=== PATIENT | female | born 1945 | race African-American/Black ===

== ENCOUNTER 2018-12-29 11:06 | Inpatient (IN) | payer BC ==
[~2018-12-29] VITALS: Ht 162.6 cm; Wt 86.2 kg
[2018-12-29] MEDS ORDERED: UNOBMED (11:13)
--- NOTE | 2018-12-29 11:20 | NUR ---
ED Nurse Note: patient was brought in by GUNNAR RAMIREZ x 4, per patient she can not walk, complaining of pain in both knees. patient fell at home in attempt to walk. skin is dry and intact. family member at the bed side.
[2018-12-29 11:28] VITALS: BP 156/87
--- NOTE | 2018-12-29 11:44 | NUR ---
ED Nurse Note:patient went down for CT
[2018-12-29 12:13] LABS: BASOPHILS % (AUTO) 0.7 % (0.0-2.0); EOSINOPHILS % (AUTO) 0.5 % (0.0-3.0); HEMATOCRIT 46.7 % (37.0-47.0); HEMOGLOBIN 15.3 G/DL (12.0-16.0); LYMPHOCYTES % (AUTO) 16.7 % (20.0-45.0); MEAN CORPUSCULAR VOLUME 87 FL (80-99); MONOCYTES % (AUTO) 9.4 % (1.0-10.0); NEUTROPHILS % (AUTO) 72.7 % (45.0-75.0); PLATELET COUNT 213 K/UL (150-450); RED BLOOD COUNT 5.37 M/UL (4.20-5.40); RED CELL DISTRIBUTION WIDTH 15.4 % (11.6-14.8); WHITE BLOOD COUNT 10.4 K/UL (4.8-10.8)
[2018-12-29] MEDS ORDERED: Meclizine 25mg tab ORAL PRN (12:15)
--- NOTE | 2018-12-29 12:20 | Emergency Room Report ---
History of Present Illness General Chief Complaint: Multiple Trauma/Fall Source: Patient Present Illness HPI 73-year-old female with history of spinal stenosis, COPD, diabetes, hypertension , vertigo, polymyalgia rheumatica, presents with multiple falls over the past week probably 67, she reports she had mild knee pain, but does not feel like she hurt herself in any of her recent falls. Allergies: Coded Allergies: SHELLFISH DERIVED (Unverified Allergy, Unknown, 12/29/18) SULFA (SULFONAMIDE ANTIBIOTICS) (Verified Allergy, Unknown, 12/29/18) Uncoded Allergies: SHELLFISH (Allergy, Unknown, 12/29/18) Patient History Past Medical History: see triage record Reviewed Nursing Documentation: PMH: Agreed; PSxH: Agreed Nursing Documentation-PMH Hx Hypertension: Yes - CHOLESTEROL, CHRONIC BACK PAIN Hx Diabetes: Yes - TYPE 2 Review of Systems All Other Systems: negative except mentioned in HPI Physical Exam Vital Signs Date Time Temp Pulse Resp B/P (MAP) Pulse Ox O2 Delivery O2 Flow Rate FiO2 12/29/18 11:06 97.9 63 22 149/82 94 Room Air Sp02 EP Interpretation: reviewed, normal General Appearance: no apparent distress, alert, non-toxic Head: normocephalic Eyes: bilateral eye normal inspection, bilateral eye PERRL, bilateral eye EOMI ENT: normal ENT inspection, hearing grossly normal, normal pharynx, no angioedema, normal voice, moist mucus membranes Neck: normal inspection, full range of motion, supple, no bony tend, supple/ symm/no masses Respiratory: chest non-tender, lungs clear, normal breath sounds, chest symmetrical, palpation of chest normal Cardiovascular #1: normal peripheral pulses, regular rate, rhythm, edema - 1+ B /L LE edema Cardiovascular #2: 2+ radial (R), 2+ radial (L) Gastrointestinal: normal inspection, non tender, soft, no mass, no guarding, no rebound Rectal: deferred Genitourinary: normal inspection, no CVA tenderness Musculoskeletal: back normal, gait/station normal, normal range of motion, non- tender, no calf tenderness Neurologic: alert, responsive, banjo repairer III-XII nml as tested, motor strength/tone normal, sensory intact, speech normal Psychiatric: judgement/insight normal, memory normal, mood/affect normal Skin: normal color, no rash, warm/dry, normal turgor Lymphatic: no adenopathy Medical Decision Making Diagnostic Impression: Primary Impression: Fall ER Course Patient with multiple falls, has chronic vertigo and similar episodes every year requiring rehab with PT. Patient with no focal neuro deficits, no signs of major injury on exam or based on history, will admit for further care since patient can't walk without being a fall risk. EKG Diagnostic Results EKG Time: 11:50 EP Interpretation: no stemi Rate: normal Rhythm: NSR ST Segments: no acute changes Rhythm Strip Diag. Results Rhythm Strip Time: 12:20 EP Interpretation: yes Rate: 64 Rhythm: NSR, no PVC's, no ectopy Last Vital Signs Date Time Temp Pulse Resp B/P (MAP) Pulse Ox O2 Delivery O2 Flow Rate FiO2 12/29/18 11:28 97.4 74 18 156/87 100 Room Air Disposition: ADMITTED INPATIENT Condition: Stable JAN GARCIA M.D Dec 29, 2018 12:20
--- NOTE | 2018-12-29 12:25 | Diagnostic Imaging Report ---
Indications: Trauma, inability to walk, pain, fall Technique: Spiral acquisitions obtained through the brain. Angled axial and coronal 5 x 5 mm slices were reconstructed. Total dose length product 1326.82 mGycm. CTDI vol(s) 70.38 mGy. Dose reduction achieved using automated exposure control Comparison: None. Findings: There is age-related enlargement of the ventricles and extra axial CSF spaces. There is periventricular deep white matter low-attenuation, consistent with chronic small vessel ischemic change. Otherwise normal houser-white differentiation. Old lacunar infarcts are seen in the bilateral basal ganglia. No acute intracranial hemorrhage nor edema, mass effect, nor midline shift. The calvarium is intact. The mastoids are clear. The visualized orbits and sinuses are unremarkable. Impression: Chronic and age-related changes, as described Old infarcts, as described Negative for acute intracranial bleed or mass effect The CT scanner at [facility] is accredited by the [employer] and the scans are performed using protocols designed to limit radiation exposure to as low as reasonably achievable to attain images of sufficient resolution adequate for diagnostic evaluation.
[2018-12-29 12:39] LABS: APPEARANCE,URINE CLEAR; BILIRUBIN, URINE NEGATIVE (NEGATIVE); COLOR,URINE PALE YELLOW; GLUCOSE, URINE (UA) NEGATIVE (NEGATIVE); KETONES,URINE NEGATIVE (NEGATIVE); LEUKOCYTE ESTERASE ,URINE 1+ (NEGATIVE); NITRITE,URINE NEGATIVE (NEGATIVE); PH,URINE 6 (4.5-8.0); PROTEIN,URINE NEGATIVE (NEGATIVE); UROBILINOGEN,URINE NORMAL MG/DL (0.0-1.0)
[2018-12-29 12:47] LABS: ANION GAP 9 mmol/L (5-15); BLOOD UREA NITROGEN 31 mg/dL (7-18); CALCIUM 10.3 MG/DL (8.5-10.1); CARBON DIOXIDE 32 MMOL/L (21-32); CHLORIDE 96 MMOL/L (98-107); CREATININE 1.1 MG/DL (0.55-1.30); POTASSIUM 3.5 MMOL/L (3.5-5.1); SODIUM 137 MMOL/L (136-145)
[2018-12-29 12:57] LABS: ALANINE AMINOTRANSFERASE 40 U/L (12-78); ALBUMIN 3.6 G/DL (3.4-5.0); ALKALINE PHOSPHATASE 98 U/L (46-116); ASPARTATE AMINO TRANSFERASE 15 U/L (15-37); BILIRUBIN,TOTAL 0.5 MG/DL (0.2-1.0); CREATINE KINASE 54 U/L (26-308)
--- NOTE | 2018-12-29 13:33 | Diagnostic Imaging Report ---
Indication: Cough Technique: One view of the chest Comparison: none Findings: The heart is borderline enlarged. The lungs and pleural spaces are clear. Impression: Borderline cardiomegaly. No acute process
[2018-12-29] MEDS ORDERED: LORazepam Inj 2mg/ml 1ml IV PRN (18:15)
[2018-12-29] MEDS ORDERED: Zolpidem 5mg tab ORAL PRN (18:15)
[2018-12-29] MEDS ORDERED: Mylanta II UD 30ml ORAL PRN (18:15)
[2018-12-29] MEDS ORDERED: Miralax 17gm pkt ORAL PRN (18:15)
[2018-12-29] MEDS ORDERED: TRIAMTERENE-HC1 EAC5 ORAL (18:24)
[2018-12-29] MEDS ORDERED: LOSARTAN POTAS100 MG ORAL (18:24)
[2018-12-29] MEDS ORDERED: Dextrose 50% 25ml Syringe IV PRN (18:30)
[2018-12-29] MEDS ORDERED: METFORMIN HCL500 M1 ORAL (18:31)
[2018-12-29] MEDS ORDERED: STARLIX60 MG ORAL (18:31)
[2018-12-29] MEDS ORDERED: CYMBALTA60 MG ORAL (18:31)
[2018-12-29] MEDS ORDERED: VENTOLIN HFA18 GM INH (18:31)
[2018-12-29] MEDS ORDERED: CARDIZEM CD180 MG ORAL (18:31)
[2018-12-29] MEDS ORDERED: BEVESPI AEROSPHERE INH (18:31)
[2018-12-29] MEDS ORDERED: PREDNISONE5 M3 PO (18:31)
[2018-12-29] MEDS ORDERED: ATORVASTATIN CA40 MG ORAL (18:35)
[2018-12-29] MEDS ORDERED: MULTIVITAMINS1 EAC2 ORAL (18:35)
[2018-12-29] MEDS ORDERED: RANITIDINE HCL150 MG ORAL (18:35)
[2018-12-29] MEDS ORDERED: GABAPENTIN100 MG ORAL (18:35)
[2018-12-29] MEDS ORDERED: ASPIRIN81 MG ORAL (18:35)
[2018-12-29 18:55] VITALS: BP 153/65
--- NOTE | 2018-12-29 19:30 | NUR ---
ED Nurse Note: RECIEVED REPORT FROM AM NRUSE TO RESUME CARE, PT IN BED AWAKE, ALERT AND ORIENTED X 4, PT WAITING TO GO UP FOR HOSPITAL ADMISSION, PT HAS ROOM, NOTED SALINE LOCK IN RIGHT AC, INTACT AND PATENT, PT ON CARDIAC MONITORIG, V/S STABLE, PT HAS BACK AND BILAT KNEE PAINA T 03/24, NO CP, NO SOB, WILL RESUME CARE ORDRED AND PREPARE FOR ADMISSION.
--- NOTE | 2018-12-29 20:00 | NUR ---
ED Nurse Note: REPORT CALLED TO FLOOR NURSE EDSON MANN ON UNIT, PT IS AWAKE AND ALERT, BELONGINGS LIST COMPLETED, PT DAUGHTER AT BEDSIDE, IV SITE PATENT, NO CP, NO SOB, PT BEING TAKEN TO UNIT VIA GURNEY WITH ER-TECH, NAD NOTED DURING PT TRANSPORT FOR ADMISSION.
--- NOTE | 2018-12-29 20:45 | NUR ---
NURSE NOTES: Patient is awake, alert and verbally responsive. Able to make needs known. Respiration is even and unlabored. Kept clean and comfortable. No complaint of pain or discomfort at the moment. Bed in low and locked position. Provided safe environment. Call light is at bedside. Oriented patient to the room and hospital. Skin is warm and dry to touch. IV site is patent. All belongings noted. Medication recon will be rechecked. Will call primary MD to continue home medications.
[2018-12-29 23:53] VITALS: BP 137/76
[2018-12-30 04:00] VITALS: BP 145/57
[2018-12-30] MEDS: Morphine Sulfate 2mg/ml Inj(IV/IM USE ONLY) IVP PRN ×2 (04:38→15:48)
--- NOTE | 2018-12-30 04:45 | NUR ---
NURSE NOTES: Patient complained of lower leg pain, given PRN pain medication as ordered.
--- NOTE | 2018-12-30 07:09 | NUR ---
HAND-OFF: Report given to EDSON Chou.
--- NOTE | 2018-12-30 07:15 | NUR ---
NURSE NOTES: Pt received from EDSON Hinkle alert and oriented x4 with no s/s of acute distress. IV site asymptomatic and patent, on saline lock. Bed in lowest position, call light and belongings within reach.
[2018-12-30 08:00] VITALS: BP 158/65
[2018-12-30 08:07] LABS: ALANINE AMINOTRANSFERASE 33 U/L (12-78); ALKALINE PHOSPHATASE 90 U/L (46-116); ANION GAP 6 mmol/L (5-15); ASPARTATE AMINO TRANSFERASE 15 U/L (15-37); BILIRUBIN,TOTAL 0.4 MG/DL (0.2-1.0); BLOOD UREA NITROGEN 28 mg/dL (7-18); CALCIUM 8.8 MG/DL (8.5-10.1); CARBON DIOXIDE 32 MMOL/L (21-32); CHLORIDE 98 MMOL/L (98-107); CHOLESTEROL 158 MG/DL (< 200); CREATININE 1.2 MG/DL (0.55-1.30); HDL CHOLESTEROL 115 MG/DL (40-60); SODIUM 136 MMOL/L (136-145); TRIGLYCERIDES 43 MG/DL (30-150)
[2018-12-30 08:18] LABS: BASOPHILS % (AUTO) 0.3 % (0.0-2.0); EOSINOPHILS % (AUTO) 0.9 % (0.0-3.0); HEMATOCRIT 40.7 % (37.0-47.0); HEMOGLOBIN 13.4 G/DL (12.0-16.0); LYMPHOCYTES % (AUTO) 22.1 % (20.0-45.0); MEAN CORPUSCULAR VOLUME 87 FL (80-99); MONOCYTES % (AUTO) 9.3 % (1.0-10.0); NEUTROPHILS % (AUTO) 67.4 % (45.0-75.0); PLATELET COUNT 156 K/UL (150-450); RED BLOOD COUNT 4.68 M/UL (4.20-5.40); WHITE BLOOD COUNT 7.5 K/UL (4.8-10.8)
[2018-12-30] MEDS: Losartan 50mg tab ORAL SCH (08:43)
[2018-12-30] MEDS: dilTIAZem HCl CD 180mg cap ORAL SCH (08:43)
[2018-12-30] MEDS: Aspirin Baby 81mg ORAL SCH (08:43)
[2018-12-30] MEDS: Triamterene/Hctz 37.5/25 cap ORAL SCH (08:43)
[2018-12-30] MEDS: metFORMIN 500mg tab ORAL SCH ×3 (08:43→17:13)
[2018-12-30] MEDS: Nateglinide 60mg tab ORAL SCH ×3 (08:44→17:13)
[2018-12-30] MEDS: DULoxetine 30mg cap ORAL SCH (08:44)
[2018-12-30 12:00] VITALS: BP 153/78
--- NOTE | 2018-12-30 13:19 | Consultation ---
History of Present Illness General Date patient seen: Dec 30, 2018 Chief Complaint: Multiple Trauma/Fall Present Illness HPI 73-year-old female with history of spinal stenosis, COPD, diabetes, hypertension , vertigo, polymyalgia rheumatica, presents with multiple falls over the past week , she reports she had mild knee. She is admitted for recurrent fall and unable to take care of herself. Allergies: Coded Allergies: SHELLFISH DERIVED (Unverified Allergy, Unknown, 12/29/18) SULFA (SULFONAMIDE ANTIBIOTICS) (Verified Allergy, Unknown, 12/29/18) Uncoded Allergies: SHELLFISH (Allergy, Unknown, 12/29/18) Medication History Scheduled Albuterol Sulfate (Ventolin Hfa), 2 PUFFS INH NEEDED, (Reported) Aspirin* (Aspirin*), 81 MG ORAL QHS, (Reported) Atorvastatin Calcium* (Atorvastatin Calcium*), 40 MG ORAL BEDTIME, (Reported) Diltiazem Hcl* (Cardizem Cd*), 180 MG ORAL DAILY, (Reported) Duloxetine Hcl* (Cymbalta*), 60 MG ORAL DAILY, (Reported) Gabapentin* (Gabapentin*), 100 MG ORAL BID, (Reported) Losartan Potassium (Losartan Potassium), 100 MG ORAL DAILY, (Reported) Metformin Hcl* (Metformin Hcl*), 500 MG ORAL THREE TIMES A DAY, (Reported) Multivitamins* (Multivitamins*), 1 TAB ORAL DAILY, (Reported) Nateglinide* (Starlix*), 60 MG ORAL THREE TIMES A DAY, (Reported) Prednisone (Prednisone), 5 MG PO DAILY, (Reported) Ranitidine Hcl* (Zantac*), 150 MG ORAL TWICE A DAY, (Reported) Triamterene/Hydrochlorothiazide* (Dyazide 37.5-25 Mg Tab*), 1 TAB ORAL DAILY, ( Reported) [Bevespi Aerosphere], 2 PUFFS INH DAILY, (Reported) Patient History Healthcare decision maker Resuscitation status Advanced Directive on File Past Medical/Surgical History Past Medical/Surgical History: (1) Diabetes mellitus (2) History of hypertension (3) COPD (chronic obstructive pulmonary disease) (4) Polymyalgia rheumatica (5) Spinal stenosis Review of Systems All Other Systems: negative except mentioned in HPI Physical Exam General Appearance: WD/WN Lines, tubes and drains: peripheral HEENT: normocephalic, atraumatic Neck: non-tender Respiratory/Chest: chest wall non-tender, normal breath sounds Breasts: no masses Cardiovascular/Chest: normal peripheral pulses Genitourinary/Rectal: normal genital exam Extremities: normal range of motion Last 24 Hour Vital Signs Date Time Temp Pulse Resp B/P (MAP) Pulse Ox O2 Delivery O2 Flow Rate FiO2 12/30/18 12:00 98.6 78 20 153/78 (103) 98 12/30/18 09:00 Room Air 12/30/18 08:43 168/65 12/30/18 08:43 85 168/65 12/30/18 08:00 98.4 85 20 158/65 (96) 96 12/30/18 04:00 96.9 69 20 145/57 (86) 96 12/29/18 23:53 97.6 80 20 137/76 (96) 100 12/29/18 23:12 Room Air 12/29/18 20:05 97.4 88 19 153/65 100 Room Air 12/29/18 18:55 97.4 88 19 153/65 100 Room Air Intake and Output 12/29/18 12/30/18 18:59 06:59 Intake Total 900 ml Balance 900 ml Intake Oral 900 ml # Voids 1 Laboratory Tests Test 12/30/18 04:52 White Blood Count 7.5 K/UL (4.8-10.8) Red Blood Count 4.68 M/UL (4.20-5.40) Hemoglobin 13.4 G/DL (12.0-16.0) Hematocrit 40.7 % (37.0-47.0) Mean Corpuscular Volume 87 FL (80-99) Mean Corpuscular Hemoglobin 28.7 PG (27.0-31.0) Mean Corpuscular Hemoglobin Concent 33.0 G/DL (32.0-36.0) Red Cell Distribution Width 15.0 % (11.6-14.8) H Platelet Count 156 K/UL (150-450) Mean Platelet Volume 8.1 FL (6.5-10.1) Neutrophils (%) (Auto) 67.4 % (45.0-75.0) Lymphocytes (%) (Auto) 22.1 % (20.0-45.0) Monocytes (%) (Auto) 9.3 % (1.0-10.0) Eosinophils (%) (Auto) 0.9 % (0.0-3.0) Basophils (%) (Auto) 0.3 % (0.0-2.0) Sodium Level 136 MMOL/L (136-145) Potassium Level 4.0 MMOL/L (3.5-5.1) Chloride Level 98 MMOL/L (98-107) Carbon Dioxide Level 32 MMOL/L (21-32) Anion Gap 6 mmol/L (5-15) Blood Urea Nitrogen 28 mg/dL (7-18) H Creatinine 1.2 MG/DL (0.55-1.30) Estimat Glomerular Filtration Rate mL/min (>60) Glucose Level 134 MG/DL (74-106) H Calcium Level 8.8 MG/DL (8.5-10.1) Total Bilirubin 0.4 MG/DL (0.2-1.0) Aspartate Amino Transf (AST/SGOT) 15 U/L (15-37) Alanine Aminotransferase (ALT/SGPT) 33 U/L (12-78) Alkaline Phosphatase 90 U/L (46-116) Total Protein 6.0 G/DL (6.4-8.2) L Albumin 3.0 G/DL (3.4-5.0) L Globulin 3.0 g/dL Albumin/Globulin Ratio 1.0 (1.0-2.7) Triglycerides Level 43 MG/DL (30-150) Cholesterol Level 158 MG/DL (< 200) LDL Cholesterol 33 mg/dL (<100) HDL Cholesterol 115 MG/DL (40-60) H Cholesterol/HDL Ratio 1.4 (3.3-4.4) L Thyroid Stimulating Hormone (TSH) 0.829 uiU/mL (0.358-3.740) Height (Feet): 5 Height (Inches): 4.00 Weight (Pounds): 190 Medications Current Medications Medications (Trade) Dose Ordered Sig/Stefanie Route PRN Reason Start Time Stop Time Status Last Admin Dose Admin Acetaminophen (Tylenol) 650 mg Q4H PRN ORAL fever 12/29/18 18:15 01/28/19 18:14 Al Hydroxide/Mg Hydroxide (Mylanta II) 30 ml Q6H PRN ORAL dyspepsia 12/29/18 18:15 01/28/19 18:14 Aspirin (ASA) 81 mg DAILY ORAL 12/30/18 09:00 01/29/19 08:59 12/30/18 08:43 Atorvastatin Calcium (Lipitor) 40 mg BEDTIME ORAL 12/30/18 21:00 01/29/19 20:59 Dextrose (Dextrose 50%) 25 ml Q30M PRN IV Hypoglycemia 12/29/18 18:30 01/28/19 18:18 Dextrose (Dextrose 50%) 50 ml Q30M PRN IV hypoglycemia 12/29/18 18:30 01/28/19 18:29 Diltiazem HCl (Cardizem CD) 180 mg DAILY ORAL 12/30/18 09:00 01/29/19 08:59 12/30/18 08:43 Duloxetine HCl (Cymbalta) 60 mg DAILY ORAL 12/30/18 09:00 01/29/19 08:59 12/30/18 08:44 Famotidine (Pepcid) 20 mg BID ORAL 12/30/18 09:00 01/29/19 08:59 12/30/18 08:43 Gabapentin (Neurontin) 100 mg BID ORAL 12/30/18 09:00 01/29/19 08:59 12/30/18 08:44 Lorazepam (Ativan 2mg/ml 1ml) 0.5 mg Q4H PRN IV For Anxiety 12/29/18 18:15 01/05/19 18:14 Losartan Potassium (Cozaar) 100 mg DAILY ORAL 12/30/18 09:00 01/29/19 08:59 12/30/18 08:43 Meclizine HCl (Antivert) 25 mg STAT PRN ORAL for dizziness 12/29/18 12:15 01/28/19 12:14 Metformin HCl (Glucophage) 500 mg THREE TIMES A DAY ORAL 12/30/18 09:00 01/29/19 08:59 12/30/18 08:43 Mirtazapine (Remeron) 7.5 mg QHS PRN ORAL Insomnia 12/30/18 21:00 01/29/19 20:59 Morphine Sulfate (Morphine Sulfate) 1 mg Q4H PRN IVP For Pain 12/29/18 18:15 01/05/19 18:14 12/30/18 04:38 Multivitamins (Multivitamins) 1 tab DAILY ORAL 12/30/18 09:00 01/29/19 08:59 12/30/18 08:43 Nateglinide (Starlix) 60 mg THREE TIMES A DAY ORAL 12/30/18 09:00 01/29/19 08:59 12/30/18 08:44 Ondansetron HCl (Zofran) 4 mg Q6H PRN IVP Nausea & Vomiting 12/29/18 18:15 01/28/19 18:14 Polyethylene Glycol (Miralax) 17 gm HSPRN PRN ORAL Constipation 12/29/18 18:15 01/28/19 18:14 Prednisone (predniSONE) 5 mg DAILY ORAL 12/30/18 09:00 01/29/19 08:59 12/30/18 08:44 Triamterene/HCTZ (Dyazide) 1 cap DAILY ORAL 12/30/18 09:00 01/29/19 08:59 12/30/18 08:43 Assessment/Plan Problem List: (1) COPD (chronic obstructive pulmonary disease) ICD Codes: J44.9 - Chronic obstructive pulmonary disease, unspecified SNOMED: 26913006 (2) Fall ICD Codes: W19.XXXA - Unspecified fall, initial encounter SNOMED: 8113345, 105034400 (3) Polymyalgia rheumatica ICD Codes: M35.3 - Polymyalgia rheumatica SNOMED: 96713097 (4) Spinal stenosis ICD Codes: M48.00 - Spinal stenosis, site unspecified SNOMED: 57193064 (5) History of hypertension ICD Codes: Z86.79 - Personal history of other diseases of the circulatory system SNOMED: 067202131 (6) Diabetes mellitus ICD Codes: E11.9 - Type 2 diabetes mellitus without complications SNOMED: 95318532 Assessment/Plan pt/ot social service consult neuro evaluation sliding scale diabetic diet pt might need placement. Demetria Veloz MD Dec 30, 2018 13:19
--- NOTE | 2018-12-30 14:03 | History & Physical ---
History and Physical History & Physicial Dictated for Int Med-Dr Morales no. [id number]. Koby Veloz MD Dec 30, 2018 14:03
[2018-12-30] MEDS ORDERED: Gadavist 7.5mMol/7.5ml vial IV PRN (14:15)
--- NOTE | 2018-12-30 15:15 | Cardiology Report ---
APPROVED REPORT EKG Measurement Heart [id number] [place] 206P40 [id number] [id number] Normal sinus rhythm Left axis deviation Left ventricular hypertrophy with repolarization abnormality Abnormal ECG
--- NOTE | 2018-12-30 16:01 | NUR ---
*-* INSURANCE *-* CLINICALS HAVE BEEN FAXED TO: [employer] F:[phone] INFORMATION IN THE BAR
--- NOTE | 2018-12-30 16:52 | Diagnostic Imaging Report ---
Indication: Knee pain Technique: 2 views of the right knee Comparison: None Findings: No acute fractures. No dislocations. Normal bony alignment. Joint spaces are preserved Impression: Negative
--- NOTE | 2018-12-30 17:01 | Diagnostic Imaging Report ---
Indication: Left knee pain Technique: 2 views of the left knee Comparison: None Findings: No acute fractures. No dislocations. No suprapatellar effusion. There are mild degenerative proliferative changes of the bilateral compartments. Impression: No acute process Minimal early degenerative changes
--- NOTE | 2018-12-30 19:50 | NUR ---
HAND-OFF: Report given to Manan Olivo RN.
[2018-12-30 20:00] VITALS: BP 151/74
--- NOTE | 2018-12-30 20:45 | History and Physical Report ---
DATE OF ADMISSION: 12/29/2018 CHIEF COMPLAINT: The patient is a 73-year-old female, presents with chief complaint of weakness of the bilateral legs and frequent falls. HISTORY OF PRESENT ILLNESS: The patient has a history of lumbar spine stenosis. The patient is status post surgery x3 on the lumbar spine. The patient states approximately 2 weeks ago ago, she began to experience weakness in bilateral lower extremities. The patient states her legs "gave out." The patient states she has fallen several times over the last two weeks. The patient states she has fallen approximately 70 times. The patient injured her bilateral knees. The patient complains of bilateral knee pain. The patient presents today with chief complaint of frequent falls and weakness in bilateral lower extremities. REVIEW OF SYSTEMS: CONSTITUTIONAL: The patient denies weight loss or gain. The patient denies fevers or chills. HEENT: The patient denies ear or throat pain. The patient denies headache. CARDIOVASCULAR: The patient denies palpitations or chest pain. CHEST: The patient denies wheeze or shortness of breath. ABDOMINAL: The patient denies nausea, vomiting, diarrhea, or constipation. GENITOURINARY: The patient denies dysuria or increased frequency of urination. NEUROMUSCULAR: The patient complains of bilateral weakness of the lower extremities as above. The patient denies seizures. PAST MEDICAL HISTORY: Significant for: 1. Diabetes type 2. 2. Hypertension. 3. Chronic obstructive pulmonary disease. 4. Polymyalgia rheumatica. 5. Fibromyalgia. 6. Herniated nucleus pulposus of the lumbar spine. PAST SURGICAL HISTORY: Significant for: 1. Cholecystectomy. 2. Lumbar surgery x3. 3. Cervical spine surgery x1. CURRENT MEDICATIONS: 1. Albuterol metered-dose inhaler two puffs p.o. 4 times a day. 2. Aspirin 81 mg p.o. at bedtime. 3. Atorvastatin 40 mg p.o. at bedtime. 4. Cardizem 180 mg p.o. daily. 5. Cymbalta 60 mg p.o. daily. 6. Gabapentin 100 mg p.o. twice daily. 7. Losartan 100 mg p.o. daily. 8. Metformin 500 mg p.o. 3 times daily. 9. Multivitamin 1 tablet p.o. daily. 10. Starlix 60 mg p.o. 3 times daily. 11. Prednisone 5 mg p.o. daily. 12. Zantac 150 mg p.o. twice daily. 13. Dyazide 37.5/25, 1 tablet p.o. daily. 14. Bevespi Aerosphere 2 puffs daily. ALLERGIES: To sulfa drugs. SOCIAL HISTORY: The patient is a and lives with her adult daughter and grandchildren. The patient denies tobacco use having quit in 1998. The patient admits to rare alcohol use. PHYSICAL EXAMINATION: VITAL SIGNS: Temperature 97.6, respirations 20, pulse 80, blood pressure 137/76. GENERAL: The patient is a well-developed and well-nourished slightly obese female, in no apparent distress. HEENT: Eyes, pupils equal and responsive to light and accommodation. Extraocular movements are intact. NECK: Supple without lymphadenopathy. CHEST: Lungs are clear to auscultation bilaterally without wheezes or rales. CARDIOVASCULAR: Regular rhythm and rate. S1-S2 are normal without murmurs, rubs, or gallops. ABDOMEN: Soft, nontender, and nondistended. Positive bowel sounds. No evidence of hepatosplenomegaly. No rebound or guarding noted. EXTREMITIES: Negative for clubbing, cyanosis, or edema. RECTAL/GENITAL: Refused. NEUROLOGIC: Cranial nerves II through XII are grossly intact without focal deficits. Motor strength is 5/5 in the bilateral lower extremities and 5/5 in the bilateral upper extremities. Deep tendon reflexes are 2+ plantar. LABORATORY AND DIAGNOSTIC STUDIES: WBC 10.4, hemoglobin 15.2, hematocrit 46.7, platelets 213,000. Sodium 137, potassium 3.5, chloride 96, CO2 32, BUN 31, creatinine 1.1. Glucose 74. Troponin 0.007. A CT scan of the brain was reported as no acute hemorrhage or infarct. A chest x-ray was reported as no acute disease. ASSESSMENT: This is a 73-year-old female. 1. Weakness in bilateral lower extremities. 2. Bilateral knee pain. 3. Frequent falls. 4. Herniated nucleus pulposus of the lumbar spine. 5. Hypertension. 6. Chronic obstructive pulmonary disease. 7. Polymyalgia rheumatica. 8. Fibromyalgia. TREATMENT: 1. Weakness of bilateral lower extremities/herniated nucleus pulposus of the lumbar spine. An MRI of the spine is pending. Herniated disc may be the cause of weakness in bilateral lower extremities. We will await results of the MRI. 2. Bilateral knee pain. The patient has a history of frequent falls. X-rays of bilateral knees is pending. 3. Diabetes type 2. A NovoLog sliding scale has been instituted. 4. Hypertension. Continue losartan as above. 5. Chronic obstructive pulmonary disease. Continue albuterol metered-dose inhaler as above. 6. Polymyalgia rheumatica. 7. Fibromyalgia. Koby Veloz M.D. DR: ATIF JOB#: [id number] CC:
[2018-12-30] MEDS: Atorvastatin 20mg tab ORAL SCH (20:47)
--- NOTE | 2018-12-30 20:52 | Consultation ---
History of Present Illness General Chief Complaint: Multiple Trauma/Fall Present Illness Allergies: Coded Allergies: SHELLFISH DERIVED (Unverified Allergy, Unknown, 12/29/18) SULFA (SULFONAMIDE ANTIBIOTICS) (Verified Allergy, Unknown, 12/29/18) Uncoded Allergies: SHELLFISH (Allergy, Unknown, 12/29/18) Medication History Scheduled Albuterol Sulfate (Ventolin Hfa), 2 PUFFS INH NEEDED, (Reported) Aspirin* (Aspirin*), 81 MG ORAL QHS, (Reported) Atorvastatin Calcium* (Atorvastatin Calcium*), 40 MG ORAL BEDTIME, (Reported) Diltiazem Hcl* (Cardizem Cd*), 180 MG ORAL DAILY, (Reported) Duloxetine Hcl* (Cymbalta*), 60 MG ORAL DAILY, (Reported) Gabapentin* (Gabapentin*), 100 MG ORAL BID, (Reported) Losartan Potassium (Losartan Potassium), 100 MG ORAL DAILY, (Reported) Metformin Hcl* (Metformin Hcl*), 500 MG ORAL THREE TIMES A DAY, (Reported) Multivitamins* (Multivitamins*), 1 TAB ORAL DAILY, (Reported) Nateglinide* (Starlix*), 60 MG ORAL THREE TIMES A DAY, (Reported) Prednisone (Prednisone), 5 MG PO DAILY, (Reported) Ranitidine Hcl* (Zantac*), 150 MG ORAL TWICE A DAY, (Reported) Triamterene/Hydrochlorothiazide* (Dyazide 37.5-25 Mg Tab*), 1 TAB ORAL DAILY, ( Reported) [Bevespi Aerosphere], 2 PUFFS INH DAILY, (Reported) Patient History Healthcare decision maker Resuscitation status Advanced Directive on File Physical Exam Last 24 Hour Vital Signs Date Time Temp Pulse Resp B/P (MAP) Pulse Ox O2 Delivery O2 Flow Rate FiO2 12/30/18 12:00 98.6 78 20 153/78 (103) 98 12/30/18 09:00 Room Air 12/30/18 08:43 168/65 12/30/18 08:43 85 168/65 12/30/18 08:00 98.4 85 20 158/65 (96) 96 12/30/18 04:00 96.9 69 20 145/57 (86) 96 12/29/18 23:53 97.6 80 20 137/76 (96) 100 12/29/18 23:12 Room Air Intake and Output 12/29/18 12/30/18 19:00 07:00 Intake Total 900 ml Balance 900 ml Intake Oral 900 ml # Voids 1 Laboratory Tests Test 12/30/18 04:52 White Blood Count 7.5 K/UL (4.8-10.8) Red Blood Count 4.68 M/UL (4.20-5.40) Hemoglobin 13.4 G/DL (12.0-16.0) Hematocrit 40.7 % (37.0-47.0) Mean Corpuscular Volume 87 FL (80-99) Mean Corpuscular Hemoglobin 28.7 PG (27.0-31.0) Mean Corpuscular Hemoglobin Concent 33.0 G/DL (32.0-36.0) Red Cell Distribution Width 15.0 % (11.6-14.8) H Platelet Count 156 K/UL (150-450) Mean Platelet Volume 8.1 FL (6.5-10.1) Neutrophils (%) (Auto) 67.4 % (45.0-75.0) Lymphocytes (%) (Auto) 22.1 % (20.0-45.0) Monocytes (%) (Auto) 9.3 % (1.0-10.0) Eosinophils (%) (Auto) 0.9 % (0.0-3.0) Basophils (%) (Auto) 0.3 % (0.0-2.0) Sodium Level 136 MMOL/L (136-145) Potassium Level 4.0 MMOL/L (3.5-5.1) Chloride Level 98 MMOL/L (98-107) Carbon Dioxide Level 32 MMOL/L (21-32) Anion Gap 6 mmol/L (5-15) Blood Urea Nitrogen 28 mg/dL (7-18) H Creatinine 1.2 MG/DL (0.55-1.30) Estimat Glomerular Filtration Rate mL/min (>60) Glucose Level 134 MG/DL (74-106) H Calcium Level 8.8 MG/DL (8.5-10.1) Total Bilirubin 0.4 MG/DL (0.2-1.0) Aspartate Amino Transf (AST/SGOT) 15 U/L (15-37) Alanine Aminotransferase (ALT/SGPT) 33 U/L (12-78) Alkaline Phosphatase 90 U/L (46-116) Total Protein 6.0 G/DL (6.4-8.2) L Albumin 3.0 G/DL (3.4-5.0) L Globulin 3.0 g/dL Albumin/Globulin Ratio 1.0 (1.0-2.7) Triglycerides Level 43 MG/DL (30-150) Cholesterol Level 158 MG/DL (< 200) LDL Cholesterol 33 mg/dL (<100) HDL Cholesterol 115 MG/DL (40-60) H Cholesterol/HDL Ratio 1.4 (3.3-4.4) L Thyroid Stimulating Hormone (TSH) 0.829 uiU/mL (0.358-3.740) Height (Feet): 5 Height (Inches): 4.00 Weight (Pounds): 190 Medications Current Medications Medications (Trade) Dose Ordered Sig/Stefanie Route PRN Reason Start Time Stop Time Status Last Admin Dose Admin Acetaminophen (Tylenol) 650 mg Q4H PRN ORAL fever 12/29/18 18:15 01/28/19 18:14 Al Hydroxide/Mg Hydroxide (Mylanta II) 30 ml Q6H PRN ORAL dyspepsia 12/29/18 18:15 01/28/19 18:14 Aspirin (ASA) 81 mg DAILY ORAL 12/30/18 09:00 01/29/19 08:59 12/30/18 08:43 Atorvastatin Calcium (Lipitor) 40 mg BEDTIME ORAL 12/30/18 21:00 01/29/19 20:59 12/30/18 20:47 Dextrose (Dextrose 50%) 25 ml Q30M PRN IV Hypoglycemia 12/29/18 18:30 01/28/19 18:18 Dextrose (Dextrose 50%) 50 ml Q30M PRN IV hypoglycemia 12/29/18 18:30 01/28/19 18:29 Diltiazem HCl (Cardizem CD) 180 mg DAILY ORAL 12/30/18 09:00 01/29/19 08:59 12/30/18 08:43 Duloxetine HCl (Cymbalta) 60 mg DAILY ORAL 12/30/18 09:00 01/29/19 08:59 12/30/18 08:44 Famotidine (Pepcid) 20 mg BID ORAL 12/30/18 09:00 01/29/19 08:59 12/30/18 17:13 Gabapentin (Neurontin) 100 mg BID ORAL 12/30/18 09:00 01/29/19 08:59 12/30/18 17:13 Gadobutrol (Gadavist) 7.5 mmol NOW PRN IV Radiology Procedure 12/30/18 14:15 01/03/19 14:04 Lorazepam (Ativan 2mg/ml 1ml) 0.5 mg Q4H PRN IV For Anxiety 12/29/18 18:15 01/05/19 18:14 Losartan Potassium (Cozaar) 100 mg DAILY ORAL 12/30/18 09:00 01/29/19 08:59 12/30/18 08:43 Meclizine HCl (Antivert) 25 mg STAT PRN ORAL for dizziness 12/29/18 12:15 01/28/19 12:14 Metformin HCl (Glucophage) 500 mg THREE TIMES A DAY ORAL 12/30/18 09:00 01/29/19 08:59 12/30/18 17:13 Mirtazapine (Remeron) 7.5 mg QHS PRN ORAL Insomnia 12/30/18 21:00 01/29/19 20:59 Morphine Sulfate (Morphine Sulfate) 1 mg Q4H PRN IVP For Pain 12/29/18 18:15 01/05/19 18:14 12/30/18 15:48 Multivitamins (Multivitamins) 1 tab DAILY ORAL 12/30/18 09:00 01/29/19 08:59 12/30/18 08:43 Nateglinide (Starlix) 60 mg THREE TIMES A DAY ORAL 12/30/18 09:00 01/29/19 08:59 12/30/18 17:13 Ondansetron HCl (Zofran) 4 mg Q6H PRN IVP Nausea & Vomiting 12/29/18 18:15 01/28/19 18:14 Polyethylene Glycol (Miralax) 17 gm HSPRN PRN ORAL Constipation 12/29/18 18:15 01/28/19 18:14 Prednisone (predniSONE) 5 mg DAILY ORAL 12/30/18 09:00 01/29/19 08:59 12/30/18 08:44 Triamterene/HCTZ (Dyazide) 1 cap DAILY ORAL 12/30/18 09:00 01/29/19 08:59 12/30/18 08:43 Assessment/Plan Problem List: (1) Anxiety disorder ICD Codes: F41.9 - Anxiety disorder, unspecified SNOMED: 300090087 (2) MDD (major depressive disorder), recurrent episode, moderate ICD Codes: F33.1 - Major depressive disorder, recurrent, moderate SNOMED: 05972166, [id number] Status: stable Devan Whitley MD Dec 30, 2018 20:52
--- NOTE | 2018-12-30 21:00 | Consultation ---
DATE OF CONSULTATION: CONSULTING PHYSICIAN: Devan Whitley M.D. HISTORY OF PRESENT ILLNESS: The patient is currently 73-year-old female with a history of multiple medical problems, including spinal stenosis, COPD, diabetes, hypertension, vertical depression and anxiety. The patient stated that she has anxiety and difficulty sleeping at night and presents with depressive symptoms including anhedonia. The patient currently is on Cymbalta 60 mg at night, however, still unable to sleep. PAST PSYCHIATRIC HISTORY: Depression and anxiety. PAST MEDICAL HISTORY: As above. ALLERGIES: Shellfish, derivative and sulfa antibiotics. SUBSTANCE ABUSE HISTORY: No known history of illicit drug use or alcohol. MENTAL STATUS EXAM: The patient is alert and oriented times self, place, and situation at times. Cooperative and pleasant. Mood is depressed and anxious. Affect is blunted. Congruent with mood. Thought process is concrete. Thought content, no suicidal or homicidal ideations. ASSESSMENT: AXIS I Major depressive disorder and anxiety disorder. AXIS II Deferred. AXIS III As above. AXIS IV Low. AXIS V Global assessment of functioning is 50. PLAN: 1. The patient will be started on 1.5 mg q.h.s. p.r.n. 2. Cymbalta 60 mg in the morning. 3. The patient was provided with reality orientation and supportive therapy. Devan Whitley M.D. DR: PAM JOB#: [id number] CC:
--- NOTE | 2018-12-30 22:33 | NUR ---
NURSE NOTES: patient in bed, awake, alert and verbally responsive. Able to make needs known respiration is even and unlabored. No complaint of pain or discomfort noted. Skin is warm and dry to touch. IV site is noted, intact. Call light is at bedside. Bed in low and locked position. Will continue plan of care.
[2018-12-31] VITALS (7 sets, daily range): BP systolic 151–172; BP diastolic 57–87
[2018-12-31 07:07] LABS: ANION GAP 6 mmol/L (5-15); BLOOD UREA NITROGEN 26 mg/dL (7-18); CALCIUM 9.1 MG/DL (8.5-10.1); CARBON DIOXIDE 30 MMOL/L (21-32); CHLORIDE 98 MMOL/L (98-107); CREATININE 1.2 MG/DL (0.55-1.30); POTASSIUM 3.7 MMOL/L (3.5-5.1); SODIUM 134 MMOL/L (136-145)
[2018-12-31 07:08] LABS: BASOPHILS % (AUTO) 0.9 % (0.0-2.0); EOSINOPHILS % (AUTO) 1.1 % (0.0-3.0); HEMATOCRIT 40.4 % (37.0-47.0); HEMOGLOBIN 13.4 G/DL (12.0-16.0); LYMPHOCYTES % (AUTO) 26.5 % (20.0-45.0); MEAN CORPUSCULAR VOLUME 86 FL (80-99); NEUTROPHILS % (AUTO) 63.5 % (45.0-75.0); PLATELET COUNT 159 K/UL (150-450); RED CELL DISTRIBUTION WIDTH 15.4 % (11.6-14.8)
[2018-12-31] MEDS: dilTIAZem HCl CD 180mg cap ORAL SCH (08:58)
[2018-12-31] MEDS: Nateglinide 60mg tab ORAL SCH ×3 (08:58→17:15)
[2018-12-31] MEDS: metFORMIN 500mg tab ORAL SCH ×3 (08:59→17:15)
[2018-12-31] MEDS: Triamterene/Hctz 37.5/25 cap ORAL SCH (08:59)
[2018-12-31] MEDS: Aspirin Baby 81mg ORAL SCH (08:59)
[2018-12-31] MEDS: Losartan 50mg tab ORAL SCH (08:59)
[2018-12-31] MEDS: DULoxetine 30mg cap ORAL SCH (08:59)
--- NOTE | 2018-12-31 10:41 | Pulmonology Progress Note ---
Assessment/Plan Problems: (1) COPD (chronic obstructive pulmonary disease) (2) Fall (3) Polymyalgia rheumatica (4) Spinal stenosis (5) History of hypertension (6) Diabetes mellitus Assessment/Plan no new complains all CR's reviewed sliding scale diabetic diet monitor BP Subjective ROS Limited/Unobtainable: No Constitutional: Reports: no symptoms HEENT: Repors: no symptoms Respiratory: Reports: no symptoms Allergies: Coded Allergies: SHELLFISH DERIVED (Unverified Allergy, Unknown, 12/29/18) SULFA (SULFONAMIDE ANTIBIOTICS) (Verified Allergy, Unknown, 12/29/18) Uncoded Allergies: SHELLFISH (Allergy, Unknown, 12/29/18) Objective Last 24 Hour Vital Signs Date Time Temp Pulse Resp B/P (MAP) Pulse Ox O2 Delivery O2 Flow Rate FiO2 12/31/18 09:00 Room Air 12/31/18 08:59 153/57 12/31/18 08:58 85 153/57 12/31/18 08:00 98.1 85 18 153/57 (89) 97 12/31/18 04:00 97.6 83 18 152/76 (101) 99 12/31/18 00:00 98.0 86 18 152/71 (98) 98 12/30/18 21:00 Room Air 12/30/18 20:00 97.7 85 20 151/74 (99) 97 12/30/18 12:00 98.6 78 20 153/78 (103) 98 Intake and Output 12/30/18 12/31/18 18:59 06:59 Intake Total 720 ml 1000 ml Balance 720 ml 1000 ml Intake Oral 720 ml 1000 ml # Voids 2 1 Objective General Appearance: WD/WN Lines, tubes and drains: peripheral HEENT: normocephalic, atraumatic Neck: non-tender Respiratory/Chest: chest wall non-tender, normal breath sounds Breasts: no masses Cardiovascular/Chest: normal peripheral pulses Genitourinary/Rectal: normal genital exam Extremities: normal range of motion Laboratory Tests 12/31/18 06:10: White Blood Count 7.0, Red Blood Count 4.70, Hemoglobin 13.4, Hematocrit 40.4, Mean Corpuscular Volume 86, Mean Corpuscular Hemoglobin 28.6, Mean Corpuscular Hemoglobin Concent 33.3, Red Cell Distribution Width 15.4H, Platelet Count 159, Mean Platelet Volume 8.5, Neutrophils (%) (Auto) 63.5, Lymphocytes (%) (Auto) 26.5, Monocytes (%) (Auto) 8.0, Eosinophils (%) (Auto) 1.1, Basophils (%) (Auto ) 0.9, Sodium Level 134L, Potassium Level 3.7, Chloride Level 98, Carbon Dioxide Level 30, Anion Gap 6, Blood Urea Nitrogen 26H, Creatinine 1.2, Estimat Glomerular Filtration Rate , Glucose Level 115H, Calcium Level 9.1 Current Medications Medications (Trade) Dose Ordered Sig/Stefanie Route PRN Reason Start Time Stop Time Status Last Admin Dose Admin Acetaminophen (Tylenol) 650 mg Q4H PRN ORAL fever 12/29/18 18:15 01/28/19 18:14 12/31/18 03:15 Al Hydroxide/Mg Hydroxide (Mylanta II) 30 ml Q6H PRN ORAL dyspepsia 12/29/18 18:15 01/28/19 18:14 Aspirin (ASA) 81 mg DAILY ORAL 12/30/18 09:00 01/29/19 08:59 12/31/18 08:59 Atorvastatin Calcium (Lipitor) 40 mg BEDTIME ORAL 12/30/18 21:00 01/29/19 20:59 12/30/18 20:47 Dextrose (Dextrose 50%) 25 ml Q30M PRN IV Hypoglycemia 12/29/18 18:30 01/28/19 18:18 Dextrose (Dextrose 50%) 50 ml Q30M PRN IV hypoglycemia 12/29/18 18:30 01/28/19 18:29 Diltiazem HCl (Cardizem CD) 180 mg DAILY ORAL 12/30/18 09:00 01/29/19 08:59 12/31/18 08:58 Duloxetine HCl (Cymbalta) 60 mg DAILY ORAL 12/30/18 09:00 01/29/19 08:59 12/31/18 08:59 Famotidine (Pepcid) 20 mg BID ORAL 12/30/18 09:00 01/29/19 08:59 12/31/18 08:59 Gabapentin (Neurontin) 100 mg BID ORAL 12/30/18 09:00 01/29/19 08:59 12/31/18 08:58 Gadobutrol (Gadavist) 7.5 mmol NOW PRN IV Radiology Procedure 12/30/18 14:15 01/03/19 14:04 Lorazepam (Ativan 2mg/ml 1ml) 0.5 mg Q4H PRN IV For Anxiety 12/29/18 18:15 01/05/19 18:14 Losartan Potassium (Cozaar) 100 mg DAILY ORAL 12/30/18 09:00 01/29/19 08:59 12/31/18 08:59 Meclizine HCl (Antivert) 25 mg STAT PRN ORAL for dizziness 12/29/18 12:15 01/28/19 12:14 Metformin HCl (Glucophage) 500 mg THREE TIMES A DAY ORAL 12/30/18 09:00 01/29/19 08:59 12/31/18 08:59 Mirtazapine (Remeron) 7.5 mg QHS PRN ORAL Insomnia 12/30/18 21:00 01/29/19 20:59 Morphine Sulfate (Morphine Sulfate) 1 mg Q4H PRN IVP For Pain 12/29/18 18:15 01/05/19 18:14 12/30/18 15:48 Multivitamins (Multivitamins) 1 tab DAILY ORAL 12/30/18 09:00 01/29/19 08:59 12/31/18 08:59 Nateglinide (Starlix) 60 mg THREE TIMES A DAY ORAL 12/30/18 09:00 01/29/19 08:59 12/31/18 08:58 Ondansetron HCl (Zofran) 4 mg Q6H PRN IVP Nausea & Vomiting 12/29/18 18:15 01/28/19 18:14 Polyethylene Glycol (Miralax) 17 gm HSPRN PRN ORAL Constipation 12/29/18 18:15 01/28/19 18:14 Prednisone (predniSONE) 5 mg DAILY ORAL 12/30/18 09:00 01/29/19 08:59 12/31/18 08:59 Triamterene/HCTZ (Dyazide) 1 cap DAILY ORAL 12/30/18 09:00 01/29/19 08:59 12/31/18 08:59 Demetria Veloz MD Dec 31, 2018 10:41
--- NOTE | 2018-12-31 10:48 | NUR ---
NURSE NOTES: patient in bed, A/A/Ox4 and able to make needs known. respiration is even and unlabored. No complaint of pain/discomfort noted. Skin is warm and dry to touch. IV site is patent and intact. Call light is within reach. Bed in low position with siderails up x3. appetite is good and tolerating it well. Will continue plan of care.
[2018-12-31] MEDS: Morphine Sulfate 2mg/ml Inj(IV/IM USE ONLY) IVP PRN ×2 (11:01→16:53)
--- NOTE | 2018-12-31 14:08 | NUR ---
CASE MANAGEMENT: REVIEW 12/31/2018 SI:FALL/DIZZINESS. T 97.5 HR 78 RR 19 B/P 151/77 SATS 96% ON RA NA 134 BUN 26 GLU 115 IS: LIPITOR PO QHS GABAPENTIN PO BID PEPCID PO BID ASA PO QD CARDIZEM PO QD CYMBALTA PO QD COZAAR PO QD PREDNISONE PO QD METFORMIN PO TID MED/SURG STATUS DCP: TO SNF PLAN OF CARE: DC PLANNING TO SNF WHEN STABLE Addendum: 01/09/19 at 2001 by Torie Pierre CM [employer] [employer]
--- NOTE | 2018-12-31 16:52 | NUR ---
PT Note PT neno completed, treatment initiated. Patient was able to stand with the FWW and max assist but was unable to take any steps. She needs PT services to increase her muscle strength and balance to improve her functional mobility and gait. Addendum: 12/31/18 at 1652 by ELAINA PABLO PT Amended: Links added.
--- NOTE | 2018-12-31 18:40 | NUR ---
NURSE NOTES: patient is calm and comfortable. no acute resp distress noted. prefers for HOB to be elevated. seen by PT. siderails are up x3. call light is within reach. will cont to monitor.
--- NOTE | 2018-12-31 19:10 | NUR ---
NURSE NOTES: Pt received awake, alert and oriented to her own ability. She was resting quietly and stated pain is at a tolerable level at this time at a 3. Pt is sitting in semi-fowlers upright. Bed is in lowest position, locked, call light within reach. Will continue to monitor.
--- NOTE | 2018-12-31 19:13 | Internal Med Progress Note ---
Subjective Date of Service: Dec 31, 2018 Physician Name Koby Veloz Attending Physician Eyad Morales MD Current Medications Medications (Trade) Dose Ordered Sig/Stefanie Route PRN Reason Start Time Stop Time Status Last Admin Dose Admin Acetaminophen (Tylenol) 650 mg Q4H PRN ORAL fever 12/29/18 18:15 01/28/19 18:14 12/31/18 03:15 Al Hydroxide/Mg Hydroxide (Mylanta II) 30 ml Q6H PRN ORAL dyspepsia 12/29/18 18:15 01/28/19 18:14 Aspirin (ASA) 81 mg DAILY ORAL 12/30/18 09:00 01/29/19 08:59 12/31/18 08:59 Atorvastatin Calcium (Lipitor) 40 mg BEDTIME ORAL 12/30/18 21:00 01/29/19 20:59 12/30/18 20:47 Dextrose (Dextrose 50%) 25 ml Q30M PRN IV Hypoglycemia 12/29/18 18:30 01/28/19 18:18 Dextrose (Dextrose 50%) 50 ml Q30M PRN IV hypoglycemia 12/29/18 18:30 01/28/19 18:29 Diltiazem HCl (Cardizem CD) 180 mg DAILY ORAL 12/30/18 09:00 01/29/19 08:59 12/31/18 08:58 Duloxetine HCl (Cymbalta) 60 mg DAILY ORAL 12/30/18 09:00 01/29/19 08:59 12/31/18 08:59 Famotidine (Pepcid) 20 mg BID ORAL 12/30/18 09:00 01/29/19 08:59 12/31/18 17:15 Gabapentin (Neurontin) 100 mg BID ORAL 12/30/18 09:00 01/29/19 08:59 12/31/18 17:15 Gadobutrol (Gadavist) 7.5 mmol NOW PRN IV Radiology Procedure 12/30/18 14:15 01/03/19 14:04 Lorazepam (Ativan 2mg/ml 1ml) 0.5 mg Q4H PRN IV For Anxiety 12/29/18 18:15 01/05/19 18:14 Losartan Potassium (Cozaar) 100 mg DAILY ORAL 12/30/18 09:00 01/29/19 08:59 12/31/18 08:59 Meclizine HCl (Antivert) 25 mg STAT PRN ORAL for dizziness 12/29/18 12:15 01/28/19 12:14 Metformin HCl (Glucophage) 500 mg THREE TIMES A DAY ORAL 12/30/18 09:00 01/29/19 08:59 12/31/18 17:15 Mirtazapine (Remeron) 7.5 mg QHS PRN ORAL Insomnia 12/30/18 21:00 01/29/19 20:59 Morphine Sulfate (Morphine Sulfate) 1 mg Q4H PRN IVP For Pain 12/29/18 18:15 01/05/19 18:14 12/31/18 16:53 Multivitamins (Multivitamins) 1 tab DAILY ORAL 12/30/18 09:00 01/29/19 08:59 12/31/18 08:59 Nateglinide (Starlix) 60 mg THREE TIMES A DAY ORAL 12/30/18 09:00 01/29/19 08:59 12/31/18 17:15 Ondansetron HCl (Zofran) 4 mg Q6H PRN IVP Nausea & Vomiting 12/29/18 18:15 01/28/19 18:14 Polyethylene Glycol (Miralax) 17 gm HSPRN PRN ORAL Constipation 12/29/18 18:15 01/28/19 18:14 Prednisone (predniSONE) 5 mg DAILY ORAL 12/30/18 09:00 01/29/19 08:59 12/31/18 08:59 Triamterene/HCTZ (Dyazide) 1 cap DAILY ORAL 12/30/18 09:00 01/29/19 08:59 12/31/18 08:59 Allergies: Coded Allergies: SHELLFISH DERIVED (Unverified Allergy, Unknown, 12/29/18) SULFA (SULFONAMIDE ANTIBIOTICS) (Verified Allergy, Unknown, 12/29/18) Uncoded Allergies: SHELLFISH (Allergy, Unknown, 12/29/18) ROS Limited/Unobtainable: No Constitutional: Reports: no symptoms HEENT: Reports: no symptoms Cardiovascular: Reports: no symptoms Respiratory: Reports: no symptoms Gastrointestinal/Abdominal: Reports: no symptoms Genitourinary: Reports: no symptoms Neurologic/Psychiatric: Reports: no symptoms Subjective 73 YO F admitted with frequent falls and weakness bilateral legs. Cover for Int Med-Dr Morales Objective Last Vital Signs Date Time Temp Pulse Resp B/P (MAP) Pulse Ox O2 Delivery O2 Flow Rate FiO2 12/31/18 17:23 98.1 12/31/18 15:59 78 18 158/74 (102) 96 12/31/18 09:00 Room Air Laboratory Tests Test 12/31/18 06:10 White Blood Count 7.0 K/UL (4.8-10.8) Red Blood Count 4.70 M/UL (4.20-5.40) Hemoglobin 13.4 G/DL (12.0-16.0) Hematocrit 40.4 % (37.0-47.0) Mean Corpuscular Volume 86 FL (80-99) Mean Corpuscular Hemoglobin 28.6 PG (27.0-31.0) Mean Corpuscular Hemoglobin Concent 33.3 G/DL (32.0-36.0) Red Cell Distribution Width 15.4 % (11.6-14.8) H Platelet Count 159 K/UL (150-450) Mean Platelet Volume 8.5 FL (6.5-10.1) Neutrophils (%) (Auto) 63.5 % (45.0-75.0) Lymphocytes (%) (Auto) 26.5 % (20.0-45.0) Monocytes (%) (Auto) 8.0 % (1.0-10.0) Eosinophils (%) (Auto) 1.1 % (0.0-3.0) Basophils (%) (Auto) 0.9 % (0.0-2.0) Sodium Level 134 MMOL/L (136-145) L Potassium Level 3.7 MMOL/L (3.5-5.1) Chloride Level 98 MMOL/L (98-107) Carbon Dioxide Level 30 MMOL/L (21-32) Anion Gap 6 mmol/L (5-15) Blood Urea Nitrogen 26 mg/dL (7-18) H Creatinine 1.2 MG/DL (0.55-1.30) Estimat Glomerular Filtration Rate mL/min (>60) Glucose Level 115 MG/DL (74-106) H Calcium Level 9.1 MG/DL (8.5-10.1) Intake and Output 12/30/18 12/31/18 19:00 07:00 Intake Total 720 ml 1000 ml Balance 720 ml 1000 ml Intake Oral 720 ml 1000 ml # Voids 2 1 Objective PHYSICAL EXAMINATION: VITAL SIGNS: Temperature 97.6, respirations 20, pulse 80, blood pressure 137/76. GENERAL: The patient is a well-developed and well-nourished slightly obese female, in no apparent distress. HEENT: Eyes, pupils equal and responsive to light and accommodation. Extraocular movements are intact. NECK: Supple without lymphadenopathy. CHEST: Lungs are clear to auscultation bilaterally without wheezes or rales. CARDIOVASCULAR: Regular rhythm and rate. S1-S2 are normal without murmurs, rubs, or gallops. ABDOMEN: Soft, nontender, and nondistended. Positive bowel sounds. No evidence of hepatosplenomegaly. No rebound or guarding noted. EXTREMITIES: Negative for clubbing, cyanosis, or edema. RECTAL/GENITAL: Refused. NEUROLOGIC: Cranial nerves II through XII are grossly intact without focal deficits. Motor strength is 5/5 in the bilateral lower extremities and 5/5 in the bilateral upper extremities. Deep tendon reflexes are 2+ plantar. Assessment/Plan Assessment/Plan ASSESSMENT: This is a 73-year-old female. 1. Weakness in bilateral lower extremities. 2. Bilateral knee pain. 3. Frequent falls. 4. Herniated nucleus pulposus of the lumbar spine. 5. Hypertension. 6. Chronic obstructive pulmonary disease. 7. Polymyalgia rheumatica. 8. Fibromyalgia. TREATMENT: 1. Weakness of bilateral lower extremities/herniated nucleus pulposus of the lumbar spine. An MRI of the spine is pending. Herniated disc may be the cause of weakness in bilateral lower extremities. We will await results of the MRI. 2. Bilateral knee pain. The patient has a history of frequent falls. X-rays of bilateral knees is pending. 3. Diabetes type 2. A NovoLog sliding scale has been instituted. 4. Hypertension. Continue losartan as above. 5. Chronic obstructive pulmonary disease. Continue albuterol metered-dose inhaler as above. 6. Polymyalgia rheumatica. 7. Fibromyalgia. Koby Veloz MD Dec 31, 2018 19:13
--- NOTE | 2018-12-31 19:17 | NUR ---
HAND-OFF: Report given to
--- NOTE | 2018-12-31 21:45 | General Progress Note ---
Assessment/Plan Problem List: (1) Anxiety disorder ICD Codes: F41.9 - Anxiety disorder, unspecified SNOMED: 897819916 (2) MDD (major depressive disorder), recurrent episode, moderate ICD Codes: F33.1 - Major depressive disorder, recurrent, moderate SNOMED: 46776669, [id number] Assessment/Plan cymbalta 60mg po qam remeron qhs provided ro/st Subjective Neurologic/Psychiatric: Reports: anxiety, depressed, emotional problems Allergies: Coded Allergies: SHELLFISH DERIVED (Unverified Allergy, Unknown, 12/29/18) SULFA (SULFONAMIDE ANTIBIOTICS) (Verified Allergy, Unknown, 12/29/18) Uncoded Allergies: SHELLFISH (Allergy, Unknown, 12/29/18) Objective Last 24 Hour Vital Signs Date Time Temp Pulse Resp B/P (MAP) Pulse Ox O2 Delivery O2 Flow Rate FiO2 12/31/18 20:00 97.5 86 20 163/87 (112) 96 12/31/18 17:23 98.1 12/31/18 15:59 98.1 78 18 158/74 (102) 96 12/31/18 12:00 97.5 78 19 151/77 (101) 96 12/31/18 09:00 Room Air 12/31/18 08:59 153/57 12/31/18 08:58 85 153/57 12/31/18 08:00 98.1 85 18 153/57 (89) 97 12/31/18 04:00 97.6 83 18 152/76 (101) 99 12/31/18 00:00 98.0 86 18 152/71 (98) 98 Intake and Output 12/30/18 12/31/18 19:00 07:00 Intake Total 720 ml 1000 ml Balance 720 ml 1000 ml Intake Oral 720 ml 1000 ml # Voids 2 1 Laboratory Tests 12/31/18 06:10: White Blood Count 7.0, Red Blood Count 4.70, Hemoglobin 13.4, Hematocrit 40.4, Mean Corpuscular Volume 86, Mean Corpuscular Hemoglobin 28.6, Mean Corpuscular Hemoglobin Concent 33.3, Red Cell Distribution Width 15.4H, Platelet Count 159, Mean Platelet Volume 8.5, Neutrophils (%) (Auto) 63.5, Lymphocytes (%) (Auto) 26.5, Monocytes (%) (Auto) 8.0, Eosinophils (%) (Auto) 1.1, Basophils (%) (Auto ) 0.9, Sodium Level 134L, Potassium Level 3.7, Chloride Level 98, Carbon Dioxide Level 30, Anion Gap 6, Blood Urea Nitrogen 26H, Creatinine 1.2, Estimat Glomerular Filtration Rate , Glucose Level 115H, Calcium Level 9.1 Height (Feet): 5 Height (Inches): 4.00 Weight (Pounds): 190 General Appearance: WD/WN, no apparent distress, alert Devan Whitley MD Dec 31, 2018 21:45
[2018-12-31] MEDS: Atorvastatin 20mg tab ORAL SCH (22:13)
[2019-01-01] VITALS: BP 155/84
[2019-01-01 03:41] VITALS: BP 159/77
--- NOTE | 2019-01-01 07:01 | NUR ---
HAND-OFF: Report given to EDSON Andrew.
[2019-01-01 08:00] VITALS: BP 157/75
--- NOTE | 2019-01-01 08:30 | NUR ---
NURSE NOTES: patient is calm and comfortable. no acute resp distress noted. prefers for HOB to be elevated. bed is in the lowest position. siderails are up x3. call light is within reach. will cont to monitor.
[2019-01-01] MEDS: Triamterene/Hctz 37.5/25 cap ORAL SCH (08:46)
[2019-01-01] MEDS: Aspirin Baby 81mg ORAL SCH (08:47)
[2019-01-01] MEDS: metFORMIN 500mg tab ORAL SCH ×3 (08:47→17:09)
[2019-01-01] MEDS: Nateglinide 60mg tab ORAL SCH ×3 (08:47→17:09)
[2019-01-01] MEDS: DULoxetine 30mg cap ORAL SCH (08:47)
[2019-01-01] MEDS: dilTIAZem HCl CD 180mg cap ORAL SCH (08:48)
[2019-01-01] MEDS: Losartan 50mg tab ORAL SCH (08:48)
[2019-01-01] MEDS: Morphine Sulfate 2mg/ml Inj(IV/IM USE ONLY) IVP PRN (10:07)
[2019-01-01 12:00] VITALS: BP 139/76
--- NOTE | 2019-01-01 13:02 | Pulmonology Progress Note ---
Assessment/Plan Problems: (1) COPD (chronic obstructive pulmonary disease) (2) Fall (3) Polymyalgia rheumatica (4) Spinal stenosis (5) History of hypertension (6) Diabetes mellitus Assessment/Plan doing better no new complains all CR's reviewed sliding scale diabetic diet monitor BP wants to go to skilled nursing Subjective ROS Limited/Unobtainable: No Constitutional: Reports: no symptoms HEENT: Repors: no symptoms Respiratory: Reports: no symptoms Allergies: Coded Allergies: SHELLFISH DERIVED (Unverified Allergy, Unknown, 12/29/18) SULFA (SULFONAMIDE ANTIBIOTICS) (Verified Allergy, Unknown, 12/29/18) Uncoded Allergies: SHELLFISH (Allergy, Unknown, 12/29/18) Objective Last 24 Hour Vital Signs Date Time Temp Pulse Resp B/P (MAP) Pulse Ox O2 Delivery O2 Flow Rate FiO2 01/01/19 12:00 97.3 88 18 139/76 (97) 97 01/01/19 10:37 97.9 01/01/19 08:48 157/75 01/01/19 08:48 96 157/75 01/01/19 08:00 97.9 94 21 157/75 (102) 98 01/01/19 03:41 97.7 88 20 159/77 (104) 96 01/01/19 00:00 97.6 89 20 155/84 (107) 98 12/31/18 23:08 172/87 12/31/18 22:20 172/87 (115) 12/31/18 21:00 Room Air 12/31/18 20:00 97.5 86 20 163/87 (112) 96 12/31/18 15:59 98.1 78 18 158/74 (102) 96 Intake and Output 12/31/18 01/01/19 19:00 07:00 Intake Total 480 ml 1000 ml Output Total 300 ml Balance 480 ml 700 ml Intake Oral 480 ml 1000 ml Output Urine Total 300 ml # Voids 1 Objective General Appearance: WD/WN Lines, tubes and drains: peripheral HEENT: normocephalic, atraumatic Neck: non-tender Respiratory/Chest: chest wall non-tender, normal breath sounds Breasts: no masses Cardiovascular/Chest: normal peripheral pulses Genitourinary/Rectal: normal genital exam Extremities: normal range of motion Current Medications Medications (Trade) Dose Ordered Sig/Stefanie Route PRN Reason Start Time Stop Time Status Last Admin Dose Admin Acetaminophen (Tylenol) 650 mg Q4H PRN ORAL fever 12/29/18 18:15 01/28/19 18:14 12/31/18 03:15 Al Hydroxide/Mg Hydroxide (Mylanta II) 30 ml Q6H PRN ORAL dyspepsia 12/29/18 18:15 01/28/19 18:14 Aspirin (ASA) 81 mg DAILY ORAL 12/30/18 09:00 01/29/19 08:59 01/01/19 08:47 Atorvastatin Calcium (Lipitor) 40 mg BEDTIME ORAL 12/30/18 21:00 01/29/19 20:59 12/31/18 22:13 Clonidine HCl (Catapres Tab) 0.1 mg EVERY 6 HOURS PRN ORAL SBP>160 12/31/18 23:00 01/30/19 22:59 12/31/18 23:08 Dextrose (Dextrose 50%) 25 ml Q30M PRN IV Hypoglycemia 12/29/18 18:30 01/28/19 18:18 Dextrose (Dextrose 50%) 50 ml Q30M PRN IV hypoglycemia 12/29/18 18:30 01/28/19 18:29 Diltiazem HCl (Cardizem CD) 180 mg DAILY ORAL 12/30/18 09:00 01/29/19 08:59 01/01/19 08:48 Duloxetine HCl (Cymbalta) 60 mg DAILY ORAL 12/30/18 09:00 01/29/19 08:59 01/01/19 08:47 Famotidine (Pepcid) 20 mg BID ORAL 12/30/18 09:00 01/29/19 08:59 01/01/19 08:47 Gabapentin (Neurontin) 100 mg BID ORAL 12/30/18 09:00 01/29/19 08:59 01/01/19 08:47 Gadobutrol (Gadavist) 7.5 mmol NOW PRN IV Radiology Procedure 12/30/18 14:15 01/03/19 14:04 Lorazepam (Ativan 2mg/ml 1ml) 0.5 mg Q4H PRN IV For Anxiety 12/29/18 18:15 01/05/19 18:14 Losartan Potassium (Cozaar) 100 mg DAILY ORAL 12/30/18 09:00 01/29/19 08:59 01/01/19 08:48 Meclizine HCl (Antivert) 25 mg STAT PRN ORAL for dizziness 12/29/18 12:15 01/28/19 12:14 Metformin HCl (Glucophage) 500 mg THREE TIMES A DAY ORAL 12/30/18 09:00 01/29/19 08:59 01/01/19 08:47 Mirtazapine (Remeron) 7.5 mg QHS PRN ORAL Insomnia 12/30/18 21:00 01/29/19 20:59 Morphine Sulfate (Morphine Sulfate) 1 mg Q4H PRN IVP For Pain 12/29/18 18:15 01/05/19 18:14 01/01/19 10:07 Multivitamins (Multivitamins) 1 tab DAILY ORAL 12/30/18 09:00 01/29/19 08:59 01/01/19 08:47 Nateglinide (Starlix) 60 mg THREE TIMES A DAY ORAL 12/30/18 09:00 01/29/19 08:59 01/01/19 08:47 Ondansetron HCl (Zofran) 4 mg Q6H PRN IVP Nausea & Vomiting 12/29/18 18:15 01/28/19 18:14 Polyethylene Glycol (Miralax) 17 gm HSPRN PRN ORAL Constipation 12/29/18 18:15 01/28/19 18:14 Prednisone (predniSONE) 5 mg DAILY ORAL 12/30/18 09:00 01/29/19 08:59 01/01/19 08:46 Triamterene/HCTZ (Dyazide) 1 cap DAILY ORAL 12/30/18 09:00 01/29/19 08:59 01/01/19 08:46 Demetria Veloz MD Jan 01, 2019 13:02
--- NOTE | 2019-01-01 15:07 | NUR ---
CHARGE NURSE NOTE: X-ray of lumbar spine is not done yet. Spoke with radiology Filiberto (they are experiencing a technical difficulty) it will be done tomorrow 01/02.
[2019-01-01 16:09] VITALS: BP 132/55
--- NOTE | 2019-01-01 17:41 | Internal Med Progress Note ---
Subjective Date of Service: Jan 01, 2019 Physician Name Koby Veloz Attending Physician Eyad Morales MD Current Medications Medications (Trade) Dose Ordered Sig/Stefanie Route PRN Reason Start Time Stop Time Status Last Admin Dose Admin Acetaminophen (Tylenol) 650 mg Q4H PRN ORAL fever 12/29/18 18:15 01/28/19 18:14 12/31/18 03:15 Al Hydroxide/Mg Hydroxide (Mylanta II) 30 ml Q6H PRN ORAL dyspepsia 12/29/18 18:15 01/28/19 18:14 Aspirin (ASA) 81 mg DAILY ORAL 12/30/18 09:00 01/29/19 08:59 01/01/19 08:47 Atorvastatin Calcium (Lipitor) 40 mg BEDTIME ORAL 12/30/18 21:00 01/29/19 20:59 12/31/18 22:13 Clonidine HCl (Catapres Tab) 0.1 mg EVERY 6 HOURS PRN ORAL SBP>160 12/31/18 23:00 01/30/19 22:59 12/31/18 23:08 Dextrose (Dextrose 50%) 25 ml Q30M PRN IV Hypoglycemia 12/29/18 18:30 01/28/19 18:18 Dextrose (Dextrose 50%) 50 ml Q30M PRN IV hypoglycemia 12/29/18 18:30 01/28/19 18:29 Diltiazem HCl (Cardizem CD) 180 mg DAILY ORAL 12/30/18 09:00 01/29/19 08:59 01/01/19 08:48 Duloxetine HCl (Cymbalta) 60 mg DAILY ORAL 12/30/18 09:00 01/29/19 08:59 01/01/19 08:47 Famotidine (Pepcid) 20 mg BID ORAL 12/30/18 09:00 01/29/19 08:59 01/01/19 17:09 Gabapentin (Neurontin) 100 mg BID ORAL 12/30/18 09:00 01/29/19 08:59 01/01/19 17:09 Gadobutrol (Gadavist) 7.5 mmol NOW PRN IV Radiology Procedure 12/30/18 14:15 01/03/19 14:04 Lorazepam (Ativan 2mg/ml 1ml) 0.5 mg Q4H PRN IV For Anxiety 12/29/18 18:15 01/05/19 18:14 Losartan Potassium (Cozaar) 100 mg DAILY ORAL 12/30/18 09:00 01/29/19 08:59 01/01/19 08:48 Meclizine HCl (Antivert) 25 mg STAT PRN ORAL for dizziness 12/29/18 12:15 01/28/19 12:14 Metformin HCl (Glucophage) 500 mg THREE TIMES A DAY ORAL 12/30/18 09:00 01/29/19 08:59 01/01/19 17:09 Mirtazapine (Remeron) 7.5 mg QHS PRN ORAL Insomnia 12/30/18 21:00 01/29/19 20:59 Morphine Sulfate (Morphine Sulfate) 1 mg Q4H PRN IVP For Pain 12/29/18 18:15 01/05/19 18:14 01/01/19 10:07 Multivitamins (Multivitamins) 1 tab DAILY ORAL 12/30/18 09:00 01/29/19 08:59 01/01/19 08:47 Nateglinide (Starlix) 60 mg THREE TIMES A DAY ORAL 12/30/18 09:00 01/29/19 08:59 01/01/19 17:09 Ondansetron HCl (Zofran) 4 mg Q6H PRN IVP Nausea & Vomiting 12/29/18 18:15 01/28/19 18:14 Polyethylene Glycol (Miralax) 17 gm HSPRN PRN ORAL Constipation 12/29/18 18:15 01/28/19 18:14 Prednisone (predniSONE) 5 mg DAILY ORAL 12/30/18 09:00 01/29/19 08:59 01/01/19 08:46 Triamterene/HCTZ (Dyazide) 1 cap DAILY ORAL 12/30/18 09:00 01/29/19 08:59 01/01/19 08:46 Allergies: Coded Allergies: SHELLFISH DERIVED (Unverified Allergy, Unknown, 12/29/18) SULFA (SULFONAMIDE ANTIBIOTICS) (Verified Allergy, Unknown, 12/29/18) Uncoded Allergies: SHELLFISH (Allergy, Unknown, 12/29/18) ROS Limited/Unobtainable: No Constitutional: Reports: no symptoms HEENT: Reports: no symptoms Cardiovascular: Reports: no symptoms Respiratory: Reports: no symptoms Gastrointestinal/Abdominal: Reports: no symptoms Genitourinary: Reports: no symptoms Neurologic/Psychiatric: Reports: no symptoms Subjective 73 YO F admitted with frequent falls and weakness bilateral legs. [facility] Justin-Dr Morales Objective Last Vital Signs Date Time Temp Pulse Resp B/P (MAP) Pulse Ox O2 Delivery O2 Flow Rate FiO2 01/01/19 16:09 98.2 87 19 132/55 (80) 97 12/31/18 21:00 Room Air Intake and Output 12/31/18 01/01/19 18:59 06:59 Intake Total 480 ml 1000 ml Output Total 300 ml Balance 480 ml 700 ml Intake Oral 480 ml 1000 ml Output Urine Total 300 ml # Voids 1 Objective PHYSICAL EXAMINATION: VITAL SIGNS: Temperature 97.6, respirations 20, pulse 80, blood pressure 137/76. GENERAL: The patient is a well-developed and well-nourished slightly obese female, in no apparent distress. HEENT: Eyes, pupils equal and responsive to light and accommodation. Extraocular movements are intact. NECK: Supple without lymphadenopathy. CHEST: Lungs are clear to auscultation bilaterally without wheezes or rales. CARDIOVASCULAR: Regular rhythm and rate. S1-S2 are normal without murmurs, rubs, or gallops. ABDOMEN: Soft, nontender, and nondistended. Positive bowel sounds. No evidence of hepatosplenomegaly. No rebound or guarding noted. EXTREMITIES: Negative for clubbing, cyanosis, or edema. RECTAL/GENITAL: Refused. NEUROLOGIC: Cranial nerves II through XII are grossly intact without focal deficits. Motor strength is 5/5 in the bilateral lower extremities and 5/5 in the bilateral upper extremities. Deep tendon reflexes are 2+ plantar. Assessment/Plan Assessment/Plan ASSESSMENT: This is a 73-year-old female. 1. Weakness in bilateral lower extremities. 2. Bilateral knee pain. 3. Frequent falls. 4. Herniated nucleus pulposus of the lumbar spine. 5. Hypertension. 6. Chronic obstructive pulmonary disease. 7. Polymyalgia rheumatica. 8. Fibromyalgia. TREATMENT: 1. Weakness of bilateral lower extremities/herniated nucleus pulposus of the lumbar spine. An MRI of the spine is pending. Herniated disc may be the cause of weakness in bilateral lower extremities. We will await results of the MRI. 2. Bilateral knee pain. The patient has a history of frequent falls. X-rays of bilateral knees is pending. 3. Diabetes type 2. A NovoLog sliding scale has been instituted. 4. Hypertension. Continue losartan as above. 5. Chronic obstructive pulmonary disease. Continue albuterol metered-dose inhaler as above. 6. Polymyalgia rheumatica. 7. Fibromyalgia. Koby Veloz MD Jan 01, 2019 17:41
--- NOTE | 2019-01-01 19:03 | NUR ---
HAND-OFF: Report given to Jaylen. Addendum: 01/01/19 at 1914 by JORGITO COOL LVN carlos conroy.
--- NOTE | 2019-01-01 19:14 | NUR ---
HAND-OFF: Report given to Valerie.
--- NOTE | 2019-01-01 19:30 | NUR ---
NURSE NOTES: Received patient in bed. On RA, no SOB, no acute distress, no c/o pain. LAC heplock intact, patent. Bed in lowest position, locked, alarms on. Call light in reach.
[2019-01-01 20:00] VITALS: BP 142/83
[2019-01-01] MEDS: Atorvastatin 20mg tab ORAL SCH (20:35)
--- NOTE | 2019-01-01 21:29 | General Progress Note ---
Assessment/Plan Problem List: (1) Anxiety disorder ICD Codes: F41.9 - Anxiety disorder, unspecified SNOMED: 347706226 (2) MDD (major depressive disorder), recurrent episode, moderate ICD Codes: F33.1 - Major depressive disorder, recurrent, moderate SNOMED: 10616247, [id number] Assessment/Plan cymbalta 60mg po qam remeron qhs provided ro/st Subjective Constitutional: Reports: malaise, weakness Neurologic/Psychiatric: Reports: anxiety, depressed, emotional problems Allergies: Coded Allergies: SHELLFISH DERIVED (Unverified Allergy, Unknown, 12/29/18) SULFA (SULFONAMIDE ANTIBIOTICS) (Verified Allergy, Unknown, 12/29/18) Uncoded Allergies: SHELLFISH (Allergy, Unknown, 12/29/18) Objective Last 24 Hour Vital Signs Date Time Temp Pulse Resp B/P (MAP) Pulse Ox O2 Delivery O2 Flow Rate FiO2 01/01/19 16:09 98.2 87 19 132/55 (80) 97 01/01/19 12:00 97.3 88 18 139/76 (97) 97 01/01/19 10:37 97.9 01/01/19 08:48 157/75 01/01/19 08:48 96 157/75 01/01/19 08:00 97.9 94 21 157/75 (102) 98 01/01/19 03:41 97.7 88 20 159/77 (104) 96 01/01/19 00:00 97.6 89 20 155/84 (107) 98 12/31/18 23:08 172/87 12/31/18 22:20 172/87 (115) Intake and Output 12/31/18 01/01/19 19:00 07:00 Intake Total 480 ml 1000 ml Output Total 300 ml Balance 480 ml 700 ml Intake Oral 480 ml 1000 ml Output Urine Total 300 ml # Voids 1 Height (Feet): 5 Height (Inches): 4.00 Weight (Pounds): 190 General Appearance: WD/WN, no apparent distress, alert Devan Whitley MD Jan 01, 2019 21:29
[2019-01-02] VITALS (7 sets, daily range): BP systolic 126–170; BP diastolic 63–81
--- NOTE | 2019-01-02 07:30 | NUR ---
NURSE NOTES: Received pt from [facility]. Pt is alert and orient x4. No SOB or acute respiratory distress noted. pt is eating breakfast by herself. pt complain legs and knee pain 7/10. all needs attended, bed is locked and is in the lowest position. call light within easy reach. will continue to monitor.
[2019-01-02 07:48] LABS: EOSINOPHILS % (AUTO) 1.4 % (0.0-3.0); HEMATOCRIT 43.8 % (37.0-47.0); HEMOGLOBIN 14.3 G/DL (12.0-16.0); LYMPHOCYTES % (AUTO) 25.6 % (20.0-45.0); MEAN CORPUSCULAR VOLUME 87 FL (80-99); MONOCYTES % (AUTO) 7.8 % (1.0-10.0); NEUTROPHILS % (AUTO) 64.2 % (45.0-75.0); PLATELET COUNT 138 K/UL (150-450); RED BLOOD COUNT 5.06 M/UL (4.20-5.40); RED CELL DISTRIBUTION WIDTH 15.3 % (11.6-14.8); WHITE BLOOD COUNT 6.4 K/UL (4.8-10.8)
--- NOTE | 2019-01-02 07:49 | NUR ---
HAND-OFF: Report given to Mahesh SANDHU.
[2019-01-02 08:06] LABS: ANION GAP 8 mmol/L (5-15); BLOOD UREA NITROGEN 22 mg/dL (7-18); CARBON DIOXIDE 30 MMOL/L (21-32); CHLORIDE 97 MMOL/L (98-107); POTASSIUM 3.8 MMOL/L (3.5-5.1); SODIUM 135 MMOL/L (136-145)
[2019-01-02] MEDS: Aspirin Baby 81mg ORAL SCH (09:05)
[2019-01-02] MEDS: Triamterene/Hctz 37.5/25 cap ORAL SCH (09:05)
[2019-01-02] MEDS: metFORMIN 500mg tab ORAL SCH ×3 (09:05→18:13)
[2019-01-02] MEDS: Nateglinide 60mg tab ORAL SCH ×3 (09:05→18:13)
[2019-01-02] MEDS: Losartan 50mg tab ORAL SCH (09:05)
[2019-01-02] MEDS: dilTIAZem HCl CD 180mg cap ORAL SCH (09:05)
[2019-01-02] MEDS: DULoxetine 30mg cap ORAL SCH (09:05)
[2019-01-02] MEDS: Morphine Sulfate 2mg/ml Inj(IV/IM USE ONLY) IVP PRN ×2 (09:12→19:43)
--- NOTE | 2019-01-02 12:12 | Diagnostic Imaging Report ---
Indication: Back pain Technique: MRI examination of the Lumbar spine was performed in a 1.5 Bri magnet. Sequences obtained include sagittal and axial T1 and T2 fast spin echo, and sagittal STIR. Pre/Post gadolinium axial and sagittal T1 FSE w/ fat saturation obtained. Comparison: none Findings: At L1-2 there is a large low signal intensity epidural structure which may be an extruded disc that has migrated superiorly. There is compression of the cauda equina and spinal stenosis at this level with the total effacement of CSF anterior and posterior to the nerve roots in the spinal canal. Sagittal images also show some mild crowding or redundancy of nerve roots above the disc extrusion. Correlation with CT or plain film may be helpful and is suggested to better elucidate the nature of this low signal intensity focus which could conceivably represent bone. There is moderate desiccation of the intervertebral disc at this level. The low signal intensity disc extrusion measures about 2 cm craniocaudal, 1 cm AP and a central to left paracentral in location. There is a moderate to severe bilateral foraminal stenosis demonstrated at this level. There is magnetic susceptibility hardware consisting of pedicle screws bilaterally at L2, L3, L4, L5 and S1. Resultant artifact limits evaluation. L2-3 demonstrates laminectomy. The central canal is capacious. There is moderate degenerative disc disease with desiccation narrowing and endplate osteophyte formation. There is probable stenosis of the neural foramen limited in visualization. Stenosis is likely moderate. L3-4: Mild disc disease noted at this level with narrowing of the disc. Moderate hypertrophy of the facets resulting in narrowing of the lateral recess. L4-5 shows disc desiccation and narrowing. There is minimal anterolisthesis present. Laminectomy noted at this level with a capacious central canal. Suspected moderate bilateral neural foraminal stenosis. L5-S1: Disc desiccation and narrowing demonstrated. Laminectomy noted. Capacious central canal demonstrated. Neural foraminal stenosis suspected at this level bilaterally. IMPRESSION: Suspected, large disc extrusion at L1-2 compressing the cauda equina nerve roots. Moderate to severe central stenosis. Acuity of this finding is not known. Correlate clinically. Status post L2-S1 posterior instrumented fusion. Status post laminectomy at L2-3 and L4-5 L5-S1. Multilevel neural foraminal stenosis as described above secondary to combination of factors including degenerative disc disease and facet arthropathy. [facility] has communicated the preliminary results to the Emergency Department. Their findings are largely concordant with this report.
--- NOTE | 2019-01-02 13:10 | Pulmonology Progress Note ---
Assessment/Plan Problems: (1) COPD (chronic obstructive pulmonary disease) (2) Fall (3) Polymyalgia rheumatica (4) Spinal stenosis (5) History of hypertension (6) Diabetes mellitus Assessment/Plan doing better no new complains all CR's reviewed sliding scale diabetic diet monitor BP wants to go to care home Subjective ROS Limited/Unobtainable: No Constitutional: Reports: no symptoms HEENT: Repors: no symptoms Allergies: Coded Allergies: SHELLFISH DERIVED (Unverified Allergy, Unknown, 12/29/18) SULFA (SULFONAMIDE ANTIBIOTICS) (Verified Allergy, Unknown, 12/29/18) Uncoded Allergies: SHELLFISH (Allergy, Unknown, 12/29/18) Objective Last 24 Hour Vital Signs Date Time Temp Pulse Resp B/P (MAP) Pulse Ox O2 Delivery O2 Flow Rate FiO2 01/02/19 09:42 98.2 01/02/19 09:05 137/69 01/02/19 09:05 100 137/69 01/02/19 08:00 98.2 100 20 137/69 (91) 97 01/02/19 04:00 97.8 92 18 126/63 (84) 96 01/02/19 01:00 91 143/70 (94) 01/02/19 00:00 98.4 91 18 170/79 (109) 98 01/01/19 23:54 170/79 01/01/19 20:00 98.3 100 19 142/83 (102) 97 01/01/19 16:09 98.2 87 19 132/55 (80) 97 Intake and Output 01/01/19 01/02/19 19:00 07:00 Intake Total 900 ml 360 ml Output Total 500 ml Balance 400 ml 360 ml Intake Oral 900 ml 360 ml Output Urine Total 500 ml # Voids 5 # Bowel Movements 1 Objective General Appearance: WD/WN Lines, tubes and drains: peripheral HEENT: normocephalic, atraumatic Neck: non-tender Respiratory/Chest: chest wall non-tender, normal breath sounds Breasts: no masses Cardiovascular/Chest: normal peripheral pulses Genitourinary/Rectal: normal genital exam Extremities: normal range of motion Laboratory Tests 01/02/19 05:45: White Blood Count 6.4, Red Blood Count 5.06, Hemoglobin 14.3, Hematocrit 43.8, Mean Corpuscular Volume 87, Mean Corpuscular Hemoglobin 28.3, Mean Corpuscular Hemoglobin Concent 32.7, Red Cell Distribution Width 15.3H, Platelet Count 138L , Mean Platelet Volume 7.2, Neutrophils (%) (Auto) 64.2, Lymphocytes (%) (Auto) 25.6, Monocytes (%) (Auto) 7.8, Eosinophils (%) (Auto) 1.4, Basophils (%) (Auto ) 1.0, Sodium Level 135L, Potassium Level 3.8, Chloride Level 97L, Carbon Dioxide Level 30, Anion Gap 8, Blood Urea Nitrogen 22H, Creatinine 1.0, Estimat Glomerular Filtration Rate , Glucose Level 100, Calcium Level 9.0 Current Medications Medications (Trade) Dose Ordered Sig/Stefanie Route PRN Reason Start Time Stop Time Status Last Admin Dose Admin Acetaminophen (Tylenol) 650 mg Q4H PRN ORAL fever 12/29/18 18:15 01/28/19 18:14 12/31/18 03:15 Al Hydroxide/Mg Hydroxide (Mylanta II) 30 ml Q6H PRN ORAL dyspepsia 12/29/18 18:15 01/28/19 18:14 Aspirin (ASA) 81 mg DAILY ORAL 12/30/18 09:00 01/29/19 08:59 01/02/19 09:05 Atorvastatin Calcium (Lipitor) 40 mg BEDTIME ORAL 12/30/18 21:00 01/29/19 20:59 01/01/19 20:35 Clonidine HCl (Catapres Tab) 0.1 mg EVERY 6 HOURS PRN ORAL SBP>160 12/31/18 23:00 01/30/19 22:59 01/01/19 23:54 Dextrose (Dextrose 50%) 25 ml Q30M PRN IV Hypoglycemia 12/29/18 18:30 01/28/19 18:18 Dextrose (Dextrose 50%) 50 ml Q30M PRN IV hypoglycemia 12/29/18 18:30 01/28/19 18:29 Diltiazem HCl (Cardizem CD) 180 mg DAILY ORAL 12/30/18 09:00 01/29/19 08:59 01/02/19 09:05 Duloxetine HCl (Cymbalta) 60 mg DAILY ORAL 12/30/18 09:00 01/29/19 08:59 01/02/19 09:05 Famotidine (Pepcid) 20 mg BID ORAL 12/30/18 09:00 01/29/19 08:59 01/02/19 09:05 Gabapentin (Neurontin) 100 mg BID ORAL 12/30/18 09:00 01/29/19 08:59 01/02/19 09:05 Gadobutrol (Gadavist) 7.5 mmol NOW PRN IV Radiology Procedure 12/30/18 14:15 01/03/19 14:04 Lorazepam (Ativan 2mg/ml 1ml) 0.5 mg Q4H PRN IV For Anxiety 12/29/18 18:15 01/05/19 18:14 Losartan Potassium (Cozaar) 100 mg DAILY ORAL 12/30/18 09:00 01/29/19 08:59 01/02/19 09:05 Meclizine HCl (Antivert) 25 mg STAT PRN ORAL for dizziness 12/29/18 12:15 01/28/19 12:14 Metformin HCl (Glucophage) 500 mg THREE TIMES A DAY ORAL 12/30/18 09:00 01/29/19 08:59 01/02/19 13:05 Mirtazapine (Remeron) 7.5 mg QHS PRN ORAL Insomnia 12/30/18 21:00 01/29/19 20:59 Morphine Sulfate (Morphine Sulfate) 1 mg Q4H PRN IVP For Pain 12/29/18 18:15 01/05/19 18:14 01/02/19 09:12 Multivitamins (Multivitamins) 1 tab DAILY ORAL 12/30/18 09:00 01/29/19 08:59 01/02/19 09:05 Nateglinide (Starlix) 60 mg THREE TIMES A DAY ORAL 12/30/18 09:00 01/29/19 08:59 01/02/19 13:05 Ondansetron HCl (Zofran) 4 mg Q6H PRN IVP Nausea & Vomiting 12/29/18 18:15 01/28/19 18:14 Polyethylene Glycol (Miralax) 17 gm HSPRN PRN ORAL Constipation 12/29/18 18:15 01/28/19 18:14 Prednisone (predniSONE) 5 mg DAILY ORAL 12/30/18 09:00 01/29/19 08:59 01/02/19 09:06 Triamterene/HCTZ (Dyazide) 1 cap DAILY ORAL 12/30/18 09:00 01/29/19 08:59 01/02/19 09:05 Demetria Veloz MD Jan 02, 2019 13:10
--- NOTE | 2019-01-02 14:06 | NUR ---
RADIOLOGY DEPT LUMBAR SPINE X-RAY COMPLETED.-P.DYE
--- NOTE | 2019-01-02 14:43 | Diagnostic Imaging Report ---
Indication: Back pain Comparison: None Findings: 3 views of the lumbar spine were obtained. Multilevel posterior spinal fusion demonstrated from L2 through S1. Multilevel narrowing of intervertebral discs and hypertrophied facets noted. L2-3 and L4-5 laminectomies noted. No acute fracture seen. No obvious malalignment identified. Please for to the MRI report. Cholecystectomy clips noted. Aorta is calcified. IMPRESSION: Moderate degenerative disease of the lumbar spine. Multilevel instrumented posterior fusion and laminectomy
--- NOTE | 2019-01-02 15:43 | NUR ---
*-* INSURANCE *-* UPDATED CLINICALS AND REVIEW HAVE BEEN FAXED TO: [facility]AMZ[facility] ANDRES:IDA DUBOIS P:[phone] F:[phone]
--- NOTE | 2019-01-02 16:55 | NUR ---
*-* DISCHARGE PLANNING *-* PATIENT HAS BEEN REFERRED TO: [facility] P:[phone] F:[phone] Addendum: 01/03/19 at 1226 by LONA AUSTIN *-* SPOKE TO RAY HE HAS NO FEMALE BED AVAILABLE HE IS PENDING D/C UNTIL WEDNESDAY*-*
--- NOTE | 2019-01-02 17:50 | Internal Med Progress Note ---
Subjective Date of Service: Jan 02, 2019 Physician Name Koby Veloz Attending Physician Eyad Morales MD Current Medications Medications (Trade) Dose Ordered Sig/Stefanie Route PRN Reason Start Time Stop Time Status Last Admin Dose Admin Acetaminophen (Tylenol) 650 mg Q4H PRN ORAL fever 12/29/18 18:15 01/28/19 18:14 12/31/18 03:15 Al Hydroxide/Mg Hydroxide (Mylanta II) 30 ml Q6H PRN ORAL dyspepsia 12/29/18 18:15 01/28/19 18:14 Aspirin (ASA) 81 mg DAILY ORAL 12/30/18 09:00 01/29/19 08:59 01/02/19 09:05 Atorvastatin Calcium (Lipitor) 40 mg BEDTIME ORAL 12/30/18 21:00 01/29/19 20:59 01/01/19 20:35 Clonidine HCl (Catapres Tab) 0.1 mg EVERY 6 HOURS PRN ORAL SBP>160 12/31/18 23:00 01/30/19 22:59 01/01/19 23:54 Dextrose (Dextrose 50%) 25 ml Q30M PRN IV Hypoglycemia 12/29/18 18:30 01/28/19 18:18 Dextrose (Dextrose 50%) 50 ml Q30M PRN IV hypoglycemia 12/29/18 18:30 01/28/19 18:29 Diltiazem HCl (Cardizem CD) 180 mg DAILY ORAL 12/30/18 09:00 01/29/19 08:59 01/02/19 09:05 Duloxetine HCl (Cymbalta) 60 mg DAILY ORAL 12/30/18 09:00 01/29/19 08:59 01/02/19 09:05 Famotidine (Pepcid) 20 mg BID ORAL 12/30/18 09:00 01/29/19 08:59 01/02/19 09:05 Gabapentin (Neurontin) 100 mg BID ORAL 12/30/18 09:00 01/29/19 08:59 01/02/19 09:05 Gadobutrol (Gadavist) 7.5 mmol NOW PRN IV Radiology Procedure 12/30/18 14:15 01/03/19 14:04 Lorazepam (Ativan 2mg/ml 1ml) 0.5 mg Q4H PRN IV For Anxiety 12/29/18 18:15 01/05/19 18:14 Losartan Potassium (Cozaar) 100 mg DAILY ORAL 12/30/18 09:00 01/29/19 08:59 01/02/19 09:05 Meclizine HCl (Antivert) 25 mg STAT PRN ORAL for dizziness 12/29/18 12:15 01/28/19 12:14 Metformin HCl (Glucophage) 500 mg THREE TIMES A DAY ORAL 12/30/18 09:00 01/29/19 08:59 01/02/19 13:05 Mirtazapine (Remeron) 7.5 mg QHS PRN ORAL Insomnia 12/30/18 21:00 01/29/19 20:59 Morphine Sulfate (Morphine Sulfate) 1 mg Q4H PRN IVP For Pain 12/29/18 18:15 01/05/19 18:14 01/02/19 09:12 Multivitamins (Multivitamins) 1 tab DAILY ORAL 12/30/18 09:00 01/29/19 08:59 01/02/19 09:05 Nateglinide (Starlix) 60 mg THREE TIMES A DAY ORAL 12/30/18 09:00 01/29/19 08:59 01/02/19 13:05 Ondansetron HCl (Zofran) 4 mg Q6H PRN IVP Nausea & Vomiting 12/29/18 18:15 01/28/19 18:14 Polyethylene Glycol (Miralax) 17 gm HSPRN PRN ORAL Constipation 12/29/18 18:15 01/28/19 18:14 Prednisone (predniSONE) 5 mg DAILY ORAL 12/30/18 09:00 01/29/19 08:59 01/02/19 09:06 Triamterene/HCTZ (Dyazide) 1 cap DAILY ORAL 12/30/18 09:00 01/29/19 08:59 01/02/19 09:05 Allergies: Coded Allergies: SHELLFISH DERIVED (Unverified Allergy, Unknown, 12/29/18) SULFA (SULFONAMIDE ANTIBIOTICS) (Verified Allergy, Unknown, 12/29/18) Uncoded Allergies: SHELLFISH (Allergy, Unknown, 12/29/18) ROS Limited/Unobtainable: No Constitutional: Reports: no symptoms HEENT: Reports: no symptoms Cardiovascular: Reports: no symptoms Respiratory: Reports: no symptoms Gastrointestinal/Abdominal: Reports: no symptoms Genitourinary: Reports: no symptoms Neurologic/Psychiatric: Reports: no symptoms Subjective 73 YO F admitted with frequent falls and weakness bilateral legs. Cover for Int Justin-Dr Morales Objective Last Vital Signs Date Time Temp Pulse Resp B/P (MAP) Pulse Ox O2 Delivery O2 Flow Rate FiO2 01/02/19 16:00 98.9 74 19 134/81 (98) 97 12/31/18 21:00 Room Air Laboratory Tests Test 01/02/19 05:45 White Blood Count 6.4 K/UL (4.8-10.8) Red Blood Count 5.06 M/UL (4.20-5.40) Hemoglobin 14.3 G/DL (12.0-16.0) Hematocrit 43.8 % (37.0-47.0) Mean Corpuscular Volume 87 FL (80-99) Mean Corpuscular Hemoglobin 28.3 PG (27.0-31.0) Mean Corpuscular Hemoglobin Concent 32.7 G/DL (32.0-36.0) Red Cell Distribution Width 15.3 % (11.6-14.8) H Platelet Count 138 K/UL (150-450) L Mean Platelet Volume 7.2 FL (6.5-10.1) Neutrophils (%) (Auto) 64.2 % (45.0-75.0) Lymphocytes (%) (Auto) 25.6 % (20.0-45.0) Monocytes (%) (Auto) 7.8 % (1.0-10.0) Eosinophils (%) (Auto) 1.4 % (0.0-3.0) Basophils (%) (Auto) 1.0 % (0.0-2.0) Sodium Level 135 MMOL/L (136-145) L Potassium Level 3.8 MMOL/L (3.5-5.1) Chloride Level 97 MMOL/L (98-107) L Carbon Dioxide Level 30 MMOL/L (21-32) Anion Gap 8 mmol/L (5-15) Blood Urea Nitrogen 22 mg/dL (7-18) H Creatinine 1.0 MG/DL (0.55-1.30) Estimat Glomerular Filtration Rate mL/min (>60) Glucose Level 100 MG/DL (74-106) Calcium Level 9.0 MG/DL (8.5-10.1) Intake and Output 01/01/19 01/02/19 18:59 06:59 Intake Total 900 ml 360 ml Output Total 500 ml Balance 400 ml 360 ml Intake Oral 900 ml 360 ml Output Urine Total 500 ml # Voids 5 # Bowel Movements 1 Objective PHYSICAL EXAMINATION: VITAL SIGNS: Temperature 97.6, respirations 20, pulse 80, blood pressure 137/76. GENERAL: The patient is a well-developed and well-nourished slightly obese female, in no apparent distress. HEENT: Eyes, pupils equal and responsive to light and accommodation. Extraocular movements are intact. NECK: Supple without lymphadenopathy. CHEST: Lungs are clear to auscultation bilaterally without wheezes or rales. CARDIOVASCULAR: Regular rhythm and rate. S1-S2 are normal without murmurs, rubs, or gallops. ABDOMEN: Soft, nontender, and nondistended. Positive bowel sounds. No evidence of hepatosplenomegaly. No rebound or guarding noted. EXTREMITIES: Negative for clubbing, cyanosis, or edema. RECTAL/GENITAL: Refused. NEUROLOGIC: Cranial nerves II through XII are grossly intact without focal deficits. Motor strength is 5/5 in the bilateral lower extremities and 5/5 in the bilateral upper extremities. Deep tendon reflexes are 2+ plantar. Assessment/Plan Assessment/Plan ASSESSMENT: This is a 73-year-old female. 1. Weakness in bilateral lower extremities. 2. Bilateral knee pain. 3. Frequent falls. 4. Herniated nucleus pulposus of the lumbar spine. 5. Hypertension. 6. Chronic obstructive pulmonary disease. 7. Polymyalgia rheumatica. 8. Fibromyalgia. 9. lumbar stenosis (L1-L2) TREATMENT: 1. Weakness of bilateral lower extremities/herniated nucleus pulposus of the lumbar spine. An MRI of the spine is pending. Herniated disc may be the cause of weakness in bilateral lower extremities. We will await results of the MRI. 2. Bilateral knee pain. The patient has a history of frequent falls. X-rays of bilateral knees is pending. 3. Diabetes type 2. A NovoLog sliding scale has been instituted. 4. Hypertension. Continue losartan as above. 5. Chronic obstructive pulmonary disease. Continue albuterol metered-dose inhaler as above. 6. Polymyalgia rheumatica. 7. Fibromyalgia. 8. Ortho consult-Kboy To MD Jan 02, 2019 17:50
--- NOTE | 2019-01-02 19:30 | NUR ---
NURSE NOTES: Received patient in bed. On RA, no SOB, no acute distress. LAC IV intact, patent. Bed in lowest position, locked, alarms on. Call light in reach. Patient is c/o both leg pain at 8/10. Will follow up with pain med.
[2019-01-02] MEDS ORDERED: D5 1/2NS 1000ml IV ONE (19:58)
--- NOTE | 2019-01-02 19:59 | NUR ---
HAND-OFF: Report given to RAMÍREZ.
[2019-01-02] MEDS: Atorvastatin 20mg tab ORAL SCH (20:01)
--- NOTE | 2019-01-02 21:32 | General Progress Note ---
Assessment/Plan Problem List: (1) MDD (major depressive disorder), recurrent episode, moderate ICD Codes: F33.1 - Major depressive disorder, recurrent, moderate SNOMED: 98597754, 164057294 (2) Anxiety disorder ICD Codes: F41.9 - Anxiety disorder, unspecified SNOMED: 832902270 Assessment/Plan cymbalta 60mg po qam remeron qhs provided ro/st Subjective Constitutional: Reports: malaise, weakness Neurologic/Psychiatric: Reports: anxiety, depressed, emotional problems Allergies: Coded Allergies: SHELLFISH DERIVED (Unverified Allergy, Unknown, 12/29/18) SULFA (SULFONAMIDE ANTIBIOTICS) (Verified Allergy, Unknown, 12/29/18) Uncoded Allergies: SHELLFISH (Allergy, Unknown, 12/29/18) Objective Last 24 Hour Vital Signs Date Time Temp Pulse Resp B/P (MAP) Pulse Ox O2 Delivery O2 Flow Rate FiO2 01/02/19 20:00 98.0 103 18 137/70 (92) 96 01/02/19 16:00 98.9 74 19 134/81 (98) 97 01/02/19 12:00 97.9 89 18 129/79 (96) 98 01/02/19 09:42 98.2 01/02/19 09:05 137/69 01/02/19 09:05 100 137/69 01/02/19 08:00 98.2 100 20 137/69 (91) 97 01/02/19 04:00 97.8 92 18 126/63 (84) 96 01/02/19 01:00 91 143/70 (94) 01/02/19 00:00 98.4 91 18 170/79 (109) 98 01/01/19 23:54 170/79 Intake and Output 01/01/19 01/02/19 18:59 06:59 Intake Total 900 ml 360 ml Output Total 500 ml Balance 400 ml 360 ml Intake Oral 900 ml 360 ml Output Urine Total 500 ml # Voids 5 # Bowel Movements 1 Laboratory Tests 01/02/19 05:45: White Blood Count 6.4, Red Blood Count 5.06, Hemoglobin 14.3, Hematocrit 43.8, Mean Corpuscular Volume 87, Mean Corpuscular Hemoglobin 28.3, Mean Corpuscular Hemoglobin Concent 32.7, Red Cell Distribution Width 15.3H, Platelet Count 138L , Mean Platelet Volume 7.2, Neutrophils (%) (Auto) 64.2, Lymphocytes (%) (Auto) 25.6, Monocytes (%) (Auto) 7.8, Eosinophils (%) (Auto) 1.4, Basophils (%) (Auto ) 1.0, Sodium Level 135L, Potassium Level 3.8, Chloride Level 97L, Carbon Dioxide Level 30, Anion Gap 8, Blood Urea Nitrogen 22H, Creatinine 1.0, Estimat Glomerular Filtration Rate , Glucose Level 100, Calcium Level 9.0 Height (Feet): 5 Height (Inches): 4.00 Weight (Pounds): 190 General Appearance: WD/WN, no apparent distress, alert, overweight Neurologic: oriented x 3, responsive, depressed affect Devan Whitley MD Jan 02, 2019 21:32
--- NOTE | 2019-01-02 21:46 | Diagnostic Imaging Report ---
APPROVED REPORT CPT Code: 95516 Present Symptoms Comments: PAIN BILATERAL: Imaging reveals a patent deep venous system bilaterally. There is no evidence of thrombus within the common femoral, superficial femoral, popliteal or tibial segments. The greater saphenous veins are within normal limits. Doppler indicates normal spontaneous flow within these segments.
[2019-01-03] VITALS: BP 136/76
[2019-01-03 04:00] VITALS: BP 132/64
[2019-01-03 07:03] LABS: BASOPHILS % (AUTO) 1.1 % (0.0-2.0); HEMOGLOBIN 14.3 G/DL (12.0-16.0); LYMPHOCYTES % (AUTO) 19.4 % (20.0-45.0); MEAN CORPUSCULAR VOLUME 86 FL (80-99); MONOCYTES % (AUTO) 7.4 % (1.0-10.0); NEUTROPHILS % (AUTO) 71.1 % (45.0-75.0); PLATELET COUNT 160 K/UL (150-450); RED BLOOD COUNT 5.11 M/UL (4.20-5.40); RED CELL DISTRIBUTION WIDTH 15.5 % (11.6-14.8); WHITE BLOOD COUNT 8.3 K/UL (4.8-10.8)
[2019-01-03 07:08] LABS: ANION GAP 7 mmol/L (5-15); BLOOD UREA NITROGEN 26 mg/dL (7-18); CALCIUM 8.9 MG/DL (8.5-10.1); CARBON DIOXIDE 29 MMOL/L (21-32); CHLORIDE 98 MMOL/L (98-107); CREATININE 1.2 MG/DL (0.55-1.30); POTASSIUM 3.8 MMOL/L (3.5-5.1); SODIUM 134 MMOL/L (136-145)
--- NOTE | 2019-01-03 07:27 | NUR ---
HAND-OFF: Report given to Shanda SANDHU.
[2019-01-03 08:00] VITALS: BP 150/73
--- NOTE | 2019-01-03 08:02 | NUR ---
NURSE NOTES: Patient received in stable condition, sleeping in bed. No s/s of respiratory distress or pain observed. IV site on left arm patent and intact. Bed locked in low position, call light placed within reach, will continue to monitor.
[2019-01-03] MEDS: DULoxetine 30mg cap ORAL SCH (08:40)
[2019-01-03] MEDS: Aspirin Baby 81mg ORAL SCH (08:40)
[2019-01-03] MEDS: Nateglinide 60mg tab ORAL SCH ×3 (08:40→17:22)
[2019-01-03] MEDS: Triamterene/Hctz 37.5/25 cap ORAL SCH (08:40)
[2019-01-03] MEDS: metFORMIN 500mg tab ORAL SCH ×3 (08:40→17:21)
[2019-01-03] MEDS: dilTIAZem HCl CD 180mg cap ORAL SCH (08:40)
[2019-01-03] MEDS: Losartan 50mg tab ORAL SCH (08:41)
[2019-01-03 11:59] VITALS: BP 136/76
--- NOTE | 2019-01-03 12:54 | NUR ---
*-* DISCHARGE PLANNING *-* PATIENT HAS BEEN REFERRED TO: [facility] P:[phone] F:[phone] Addendum: 01/03/19 at 1431 by LONA AUSTIN CM SPOKE TO AFUA THEY HAVE TO GET A [facility]RI[facility]NE FROM [facility]
--- NOTE | 2019-01-03 13:01 | General Progress Note ---
Assessment/Plan Problem List: (1) Anxiety disorder ICD Codes: F41.9 - Anxiety disorder, unspecified SNOMED: 268775798 (2) MDD (major depressive disorder), recurrent episode, moderate ICD Codes: F33.1 - Major depressive disorder, recurrent, moderate SNOMED: 35697487, [id number] Assessment/Plan cymbalta 60mg po qam remeron qhs provided ro/st Subjective Neurologic/Psychiatric: Reports: anxiety, depressed, emotional problems Allergies: Coded Allergies: SHELLFISH DERIVED (Unverified Allergy, Unknown, 12/29/18) SULFA (SULFONAMIDE ANTIBIOTICS) (Verified Allergy, Unknown, 12/29/18) Uncoded Allergies: SHELLFISH (Allergy, Unknown, 12/29/18) Objective Last 24 Hour Vital Signs Date Time Temp Pulse Resp B/P (MAP) Pulse Ox O2 Delivery O2 Flow Rate FiO2 01/03/19 11:59 98.3 115 20 136/76 (96) 97 01/03/19 08:41 132/64 01/03/19 08:40 101 132/64 01/03/19 08:00 98.8 118 20 150/73 (98) 97 01/03/19 04:00 97.4 101 18 132/64 (86) 97 01/03/19 00:00 98.5 108 16 136/76 (96) 99 01/02/19 20:00 98.0 103 18 137/70 (92) 96 01/02/19 16:00 98.9 74 19 134/81 (98) 97 Intake and Output 01/02/19 01/03/19 19:00 07:00 Intake Total 650 ml 240 ml Balance 650 ml 240 ml Intake Oral 240 ml Other 650 ml # Voids 4 2 Laboratory Tests 01/03/19 06:15: White Blood Count 8.3, Red Blood Count 5.11, Hemoglobin 14.3, Hematocrit 44.0, Mean Corpuscular Volume 86, Mean Corpuscular Hemoglobin 27.9, Mean Corpuscular Hemoglobin Concent 32.5, Red Cell Distribution Width 15.5H, Platelet Count 160, Mean Platelet Volume 8.2, Neutrophils (%) (Auto) 71.1, Lymphocytes (%) (Auto) 19.4L, Monocytes (%) (Auto) 7.4, Eosinophils (%) (Auto) 1.0, Basophils (%) (Auto ) 1.1, Sodium Level 134L, Potassium Level 3.8, Chloride Level 98, Carbon Dioxide Level 29, Anion Gap 7, Blood Urea Nitrogen 26H, Creatinine 1.2, Estimat Glomerular Filtration Rate , Glucose Level 119H, Calcium Level 8.9 Height (Feet): 5 Height (Inches): 4.00 Weight (Pounds): 190 General Appearance: no apparent distress, alert Neurologic: oriented x 3, responsive, depressed affect Devan Whitley MD Jan 03, 2019 13:01
--- NOTE | 2019-01-03 14:11 | Pulmonology Progress Note ---
Assessment/Plan Problems: (1) COPD (chronic obstructive pulmonary disease) (2) Fall (3) Polymyalgia rheumatica (4) Spinal stenosis (5) History of hypertension (6) Diabetes mellitus Assessment/Plan no new complains doing better no new complains all CR's reviewed sliding scale diabetic diet monitor BP wants to go to jail Subjective ROS Limited/Unobtainable: No Allergies: Coded Allergies: SHELLFISH DERIVED (Unverified Allergy, Unknown, 12/29/18) SULFA (SULFONAMIDE ANTIBIOTICS) (Verified Allergy, Unknown, 12/29/18) Uncoded Allergies: SHELLFISH (Allergy, Unknown, 12/29/18) Objective Last 24 Hour Vital Signs Date Time Temp Pulse Resp B/P (MAP) Pulse Ox O2 Delivery O2 Flow Rate FiO2 01/03/19 11:59 98.3 115 20 136/76 (96) 97 01/03/19 08:41 132/64 01/03/19 08:40 101 132/64 01/03/19 08:00 98.8 118 20 150/73 (98) 97 01/03/19 04:00 97.4 101 18 132/64 (86) 97 01/03/19 00:00 98.5 108 16 136/76 (96) 99 01/02/19 20:00 98.0 103 18 137/70 (92) 96 01/02/19 16:00 98.9 74 19 134/81 (98) 97 Intake and Output 01/02/19 01/03/19 19:00 07:00 Intake Total 650 ml 240 ml Balance 650 ml 240 ml Intake Oral 240 ml Other 650 ml # Voids 4 2 Objective General Appearance: WD/WN Lines, tubes and drains: peripheral HEENT: normocephalic, atraumatic Neck: non-tender Respiratory/Chest: chest wall non-tender, normal breath sounds Breasts: no masses Cardiovascular/Chest: normal peripheral pulses Genitourinary/Rectal: normal genital exam Extremities: normal range of motion Laboratory Tests 01/03/19 06:15: White Blood Count 8.3, Red Blood Count 5.11, Hemoglobin 14.3, Hematocrit 44.0, Mean Corpuscular Volume 86, Mean Corpuscular Hemoglobin 27.9, Mean Corpuscular Hemoglobin Concent 32.5, Red Cell Distribution Width 15.5H, Platelet Count 160, Mean Platelet Volume 8.2, Neutrophils (%) (Auto) 71.1, Lymphocytes (%) (Auto) 19.4L, Monocytes (%) (Auto) 7.4, Eosinophils (%) (Auto) 1.0, Basophils (%) (Auto ) 1.1, Sodium Level 134L, Potassium Level 3.8, Chloride Level 98, Carbon Dioxide Level 29, Anion Gap 7, Blood Urea Nitrogen 26H, Creatinine 1.2, Estimat Glomerular Filtration Rate , Glucose Level 119H, Calcium Level 8.9 Current Medications Medications (Trade) Dose Ordered Sig/Stefanie Route PRN Reason Start Time Stop Time Status Last Admin Dose Admin Acetaminophen (Tylenol) 650 mg Q4H PRN ORAL fever 12/29/18 18:15 01/28/19 18:14 12/31/18 03:15 Al Hydroxide/Mg Hydroxide (Mylanta II) 30 ml Q6H PRN ORAL dyspepsia 12/29/18 18:15 01/28/19 18:14 Aspirin (ASA) 81 mg DAILY ORAL 12/30/18 09:00 01/29/19 08:59 01/03/19 08:40 Atorvastatin Calcium (Lipitor) 40 mg BEDTIME ORAL 12/30/18 21:00 01/29/19 20:59 01/02/19 20:01 Clonidine HCl (Catapres Tab) 0.1 mg EVERY 6 HOURS PRN ORAL SBP>160 12/31/18 23:00 01/30/19 22:59 01/01/19 23:54 Dextrose (Dextrose 50%) 25 ml Q30M PRN IV Hypoglycemia 12/29/18 18:30 01/28/19 18:18 Dextrose (Dextrose 50%) 50 ml Q30M PRN IV hypoglycemia 12/29/18 18:30 01/28/19 18:29 Diltiazem HCl (Cardizem CD) 180 mg DAILY ORAL 12/30/18 09:00 01/29/19 08:59 01/03/19 08:40 Duloxetine HCl (Cymbalta) 60 mg DAILY ORAL 12/30/18 09:00 01/29/19 08:59 01/03/19 08:40 Famotidine (Pepcid) 20 mg BID ORAL 12/30/18 09:00 01/29/19 08:59 01/03/19 08:40 Gabapentin (Neurontin) 100 mg BID ORAL 12/30/18 09:00 01/29/19 08:59 01/03/19 08:39 Lorazepam (Ativan 2mg/ml 1ml) 0.5 mg Q4H PRN IV For Anxiety 12/29/18 18:15 01/05/19 18:14 Losartan Potassium (Cozaar) 100 mg DAILY ORAL 12/30/18 09:00 01/29/19 08:59 01/03/19 08:41 Meclizine HCl (Antivert) 25 mg STAT PRN ORAL for dizziness 12/29/18 12:15 01/28/19 12:14 Metformin HCl (Glucophage) 500 mg THREE TIMES A DAY ORAL 12/30/18 09:00 01/29/19 08:59 01/03/19 12:26 Mirtazapine (Remeron) 7.5 mg QHS PRN ORAL Insomnia 12/30/18 21:00 01/29/19 20:59 Morphine Sulfate (Morphine Sulfate) 1 mg Q4H PRN IVP For Pain 12/29/18 18:15 01/05/19 18:14 01/02/19 19:43 Multivitamins (Multivitamins) 1 tab DAILY ORAL 12/30/18 09:00 01/29/19 08:59 01/03/19 08:40 Nateglinide (Starlix) 60 mg THREE TIMES A DAY ORAL 12/30/18 09:00 01/29/19 08:59 01/03/19 12:26 Ondansetron HCl (Zofran) 4 mg Q6H PRN IVP Nausea & Vomiting 12/29/18 18:15 01/28/19 18:14 Polyethylene Glycol (Miralax) 17 gm HSPRN PRN ORAL Constipation 12/29/18 18:15 01/28/19 18:14 Prednisone (predniSONE) 5 mg DAILY ORAL 12/30/18 09:00 01/29/19 08:59 01/03/19 08:40 Triamterene/HCTZ (Dyazide) 1 cap DAILY ORAL 12/30/18 09:00 01/29/19 08:59 01/03/19 08:40 Demetria Veloz MD Jan 03, 2019 14:11
--- NOTE | 2019-01-03 15:19 | Internal Med Progress Note ---
Subjective Date of Service: Jan 03, 2019 Physician Name Koby Veloz Attending Physician Eyad Morales MD Current Medications Medications (Trade) Dose Ordered Sig/Stefanie Route PRN Reason Start Time Stop Time Status Last Admin Dose Admin Acetaminophen (Tylenol) 650 mg Q4H PRN ORAL fever 12/29/18 18:15 01/28/19 18:14 12/31/18 03:15 Al Hydroxide/Mg Hydroxide (Mylanta II) 30 ml Q6H PRN ORAL dyspepsia 12/29/18 18:15 01/28/19 18:14 Aspirin (ASA) 81 mg DAILY ORAL 12/30/18 09:00 01/29/19 08:59 01/03/19 08:40 Atorvastatin Calcium (Lipitor) 40 mg BEDTIME ORAL 12/30/18 21:00 01/29/19 20:59 01/02/19 20:01 Clonidine HCl (Catapres Tab) 0.1 mg EVERY 6 HOURS PRN ORAL SBP>160 12/31/18 23:00 01/30/19 22:59 01/01/19 23:54 Dextrose (Dextrose 50%) 25 ml Q30M PRN IV Hypoglycemia 12/29/18 18:30 01/28/19 18:18 Dextrose (Dextrose 50%) 50 ml Q30M PRN IV hypoglycemia 12/29/18 18:30 01/28/19 18:29 Diltiazem HCl (Cardizem CD) 180 mg DAILY ORAL 12/30/18 09:00 01/29/19 08:59 01/03/19 08:40 Duloxetine HCl (Cymbalta) 60 mg DAILY ORAL 12/30/18 09:00 01/29/19 08:59 01/03/19 08:40 Famotidine (Pepcid) 20 mg BID ORAL 12/30/18 09:00 01/29/19 08:59 01/03/19 08:40 Gabapentin (Neurontin) 100 mg BID ORAL 12/30/18 09:00 01/29/19 08:59 01/03/19 08:39 Lorazepam (Ativan 2mg/ml 1ml) 0.5 mg Q4H PRN IV For Anxiety 12/29/18 18:15 01/05/19 18:14 Losartan Potassium (Cozaar) 100 mg DAILY ORAL 12/30/18 09:00 01/29/19 08:59 01/03/19 08:41 Meclizine HCl (Antivert) 25 mg STAT PRN ORAL for dizziness 12/29/18 12:15 01/28/19 12:14 Metformin HCl (Glucophage) 500 mg THREE TIMES A DAY ORAL 12/30/18 09:00 01/29/19 08:59 01/03/19 12:26 Mirtazapine (Remeron) 7.5 mg QHS PRN ORAL Insomnia 12/30/18 21:00 01/29/19 20:59 Morphine Sulfate (Morphine Sulfate) 1 mg Q4H PRN IVP For Pain 12/29/18 18:15 01/05/19 18:14 01/02/19 19:43 Multivitamins (Multivitamins) 1 tab DAILY ORAL 12/30/18 09:00 01/29/19 08:59 01/03/19 08:40 Nateglinide (Starlix) 60 mg THREE TIMES A DAY ORAL 12/30/18 09:00 01/29/19 08:59 01/03/19 12:26 Ondansetron HCl (Zofran) 4 mg Q6H PRN IVP Nausea & Vomiting 12/29/18 18:15 01/28/19 18:14 Polyethylene Glycol (Miralax) 17 gm HSPRN PRN ORAL Constipation 12/29/18 18:15 01/28/19 18:14 Prednisone (predniSONE) 5 mg DAILY ORAL 12/30/18 09:00 01/29/19 08:59 01/03/19 08:40 Triamterene/HCTZ (Dyazide) 1 cap DAILY ORAL 12/30/18 09:00 01/29/19 08:59 01/03/19 08:40 Allergies: Coded Allergies: SHELLFISH DERIVED (Unverified Allergy, Unknown, 12/29/18) SULFA (SULFONAMIDE ANTIBIOTICS) (Verified Allergy, Unknown, 12/29/18) Uncoded Allergies: SHELLFISH (Allergy, Unknown, 12/29/18) ROS Limited/Unobtainable: No Constitutional: Reports: no symptoms HEENT: Reports: no symptoms Cardiovascular: Reports: no symptoms Respiratory: Reports: no symptoms Gastrointestinal/Abdominal: Reports: no symptoms Genitourinary: Reports: no symptoms Neurologic/Psychiatric: Reports: no symptoms Subjective 73 YO F admitted with frequent falls and weakness bilateral legs. Cover for Int Justin-Dr Morales Objective Last Vital Signs Date Time Temp Pulse Resp B/P (MAP) Pulse Ox O2 Delivery O2 Flow Rate FiO2 01/03/19 11:59 98.3 115 20 136/76 (96) 97 12/31/18 21:00 Room Air Laboratory Tests Test 01/03/19 06:15 White Blood Count 8.3 K/UL (4.8-10.8) Red Blood Count 5.11 M/UL (4.20-5.40) Hemoglobin 14.3 G/DL (12.0-16.0) Hematocrit 44.0 % (37.0-47.0) Mean Corpuscular Volume 86 FL (80-99) Mean Corpuscular Hemoglobin 27.9 PG (27.0-31.0) Mean Corpuscular Hemoglobin Concent 32.5 G/DL (32.0-36.0) Red Cell Distribution Width 15.5 % (11.6-14.8) H Platelet Count 160 K/UL (150-450) Mean Platelet Volume 8.2 FL (6.5-10.1) Neutrophils (%) (Auto) 71.1 % (45.0-75.0) Lymphocytes (%) (Auto) 19.4 % (20.0-45.0) L Monocytes (%) (Auto) 7.4 % (1.0-10.0) Eosinophils (%) (Auto) 1.0 % (0.0-3.0) Basophils (%) (Auto) 1.1 % (0.0-2.0) Sodium Level 134 MMOL/L (136-145) L Potassium Level 3.8 MMOL/L (3.5-5.1) Chloride Level 98 MMOL/L (98-107) Carbon Dioxide Level 29 MMOL/L (21-32) Anion Gap 7 mmol/L (5-15) Blood Urea Nitrogen 26 mg/dL (7-18) H Creatinine 1.2 MG/DL (0.55-1.30) Estimat Glomerular Filtration Rate mL/min (>60) Glucose Level 119 MG/DL (74-106) H Calcium Level 8.9 MG/DL (8.5-10.1) Intake and Output 01/02/19 01/03/19 19:00 07:00 Intake Total 650 ml 240 ml Balance 650 ml 240 ml Intake Oral 240 ml Other 650 ml # Voids 4 2 Objective PHYSICAL EXAMINATION: VITAL SIGNS: Temperature 97.6, respirations 20, pulse 80, blood pressure 137/76. GENERAL: The patient is a well-developed and well-nourished slightly obese female, in no apparent distress. HEENT: Eyes, pupils equal and responsive to light and accommodation. Extraocular movements are intact. NECK: Supple without lymphadenopathy. CHEST: Lungs are clear to auscultation bilaterally without wheezes or rales. CARDIOVASCULAR: Regular rhythm and rate. S1-S2 are normal without murmurs, rubs, or gallops. ABDOMEN: Soft, nontender, and nondistended. Positive bowel sounds. No evidence of hepatosplenomegaly. No rebound or guarding noted. EXTREMITIES: Negative for clubbing, cyanosis, or edema. RECTAL/GENITAL: Refused. NEUROLOGIC: Cranial nerves II through XII are grossly intact without focal deficits. Motor strength is 5/5 in the bilateral lower extremities and 5/5 in the bilateral upper extremities. Deep tendon reflexes are 2+ plantar. Assessment/Plan Assessment/Plan ASSESSMENT: This is a 73-year-old female. 1. Weakness in bilateral lower extremities. 2. Bilateral knee pain. 3. Frequent falls. 4. Herniated nucleus pulposus of the lumbar spine. 5. Hypertension. 6. Chronic obstructive pulmonary disease. 7. Polymyalgia rheumatica. 8. Fibromyalgia. 9. lumbar stenosis (L1-L2) TREATMENT: 1. Weakness of bilateral lower extremities/herniated nucleus pulposus of the lumbar spine. An MRI of the spine is pending. Herniated disc may be the cause of weakness in bilateral lower extremities. We will await results of the MRI. 2. Bilateral knee pain. The patient has a history of frequent falls. X-rays of bilateral knees is pending. 3. Diabetes type 2. A NovoLog sliding scale has been instituted. 4. Hypertension. Continue losartan as above. 5. Chronic obstructive pulmonary disease. Continue albuterol metered-dose inhaler as above. 6. Polymyalgia rheumatica. 7. Fibromyalgia. 8. Ortho consult-Koby To MD Jan 03, 2019 15:19
--- NOTE | 2019-01-03 15:58 | NUR ---
*-* DISCHARGE PLANNING *-* PATIENT HAS BEEN REFERRED TO THE FOLLOWING FACILITIES [facility] P:[phone] F:[phone] & [facility] P:[phone] F:[phone] Addendum: 01/04/19 at 922 by LONA AUSTIN CM *-* SHIRLENE ALBERT QUEVEDO S/W [place] SHE HAS NOT FEMALE BED AVAILABLE UNTIL WEDNESDAY. Addendum: 01/04/19 at 926 by LONA AUSTIN CM *-* SPOKE TO DEBBIE [facility]ARTLE[facility] [place] THEY ARE NOT CONTRACTED.
[2019-01-03 16:00] VITALS: BP 146/76
--- NOTE | 2019-01-03 19:14 | NUR ---
NURSE NOTES: Received patient in bed , awake, alert, family at bedside, no acute distress noted, call light is within reach. Bed is locked, in low position and alarm is on. Will continue with POC.
--- NOTE | 2019-01-03 19:25 | NUR ---
HAND-OFF: Report given to Karen SANDHU.
[2019-01-03 20:00] VITALS: BP 150/87
[2019-01-03] MEDS: Atorvastatin 20mg tab ORAL SCH (20:07)
[2019-01-04] VITALS: BP 163/75
[2019-01-04 04:00] VITALS: BP 141/74
--- NOTE | 2019-01-04 06:36 | NUR ---
HAND-OFF: Report given to Ursula SANDHU.
[2019-01-04 06:56] LABS: BASOPHILS % (AUTO) 1.2 % (0.0-2.0); HEMATOCRIT 43.3 % (37.0-47.0); HEMOGLOBIN 14.2 G/DL (12.0-16.0); LYMPHOCYTES % (AUTO) 28.1 % (20.0-45.0); MEAN CORPUSCULAR VOLUME 87 FL (80-99); MONOCYTES % (AUTO) 8.7 % (1.0-10.0); PLATELET COUNT 170 K/UL (150-450); RED CELL DISTRIBUTION WIDTH 15.7 % (11.6-14.8); WHITE BLOOD COUNT 6.7 K/UL (4.8-10.8)
[2019-01-04 07:27] LABS: ANION GAP 9 mmol/L (5-15); BLOOD UREA NITROGEN 26 mg/dL (7-18); CALCIUM 8.9 MG/DL (8.5-10.1); CARBON DIOXIDE 28 MMOL/L (21-32); CHLORIDE 97 MMOL/L (98-107); CREATININE 1.2 MG/DL (0.55-1.30); POTASSIUM 3.7 MMOL/L (3.5-5.1); SODIUM 134 MMOL/L (136-145)
--- NOTE | 2019-01-04 07:35 | NUR ---
NURSE NOTES: Patient alert x4, on room air, no sign of distress and shortness of breath; no sign of chest pain; Skin intact; IV-LAC flushes well; ACHS and will check blood sugar as scheduled; bed alarm on, side rails up x2, breaks engaged; call light within reach; will keep monitoring.
[2019-01-04 08:00] VITALS: BP_SYST 117; BP_SYST 145; BP_DIAS 53; BP_DIAS 69
[2019-01-04] MEDS: Aspirin Baby 81mg ORAL SCH (08:44)
[2019-01-04] MEDS: Triamterene/Hctz 37.5/25 cap ORAL SCH (08:44)
[2019-01-04] MEDS: Nateglinide 60mg tab ORAL SCH ×3 (08:45→17:14)
[2019-01-04] MEDS: metFORMIN 500mg tab ORAL SCH ×3 (08:45→17:14)
[2019-01-04] MEDS: DULoxetine 30mg cap ORAL SCH (08:45)
[2019-01-04] MEDS: Losartan 50mg tab ORAL SCH (08:45)
[2019-01-04] MEDS: dilTIAZem HCl CD 180mg cap ORAL SCH (08:46)
--- NOTE | 2019-01-04 09:25 | NUR ---
*-* DISCHARGE PLANNING *-* PATRICK HAS BEEN REFERRED TO: DUNCAN P:[phone] F:[phone]
[2019-01-04 12:00] VITALS: BP 125/66
--- NOTE | 2019-01-04 14:04 | Pulmonology Progress Note ---
Assessment/Plan Problems: (1) COPD (chronic obstructive pulmonary disease) (2) Fall (3) Polymyalgia rheumatica (4) Spinal stenosis (5) History of hypertension (6) Diabetes mellitus Assessment/Plan no new complains doing better no new complains all CR's reviewed sliding scale diabetic diet monitor BP wants to go to [facility] Subjective ROS Limited/Unobtainable: No Constitutional: Reports: no symptoms HEENT: Repors: no symptoms Respiratory: Reports: no symptoms Allergies: Coded Allergies: SHELLFISH DERIVED (Unverified Allergy, Unknown, 12/29/18) SULFA (SULFONAMIDE ANTIBIOTICS) (Verified Allergy, Unknown, 12/29/18) Uncoded Allergies: SHELLFISH (Allergy, Unknown, 12/29/18) Objective Last 24 Hour Vital Signs Date Time Temp Pulse Resp B/P (MAP) Pulse Ox O2 Delivery O2 Flow Rate FiO2 01/04/19 12:00 99.0 116 19 125/66 (85) 98 01/04/19 08:46 112 145/69 01/04/19 08:45 145/69 01/04/19 08:00 98.4 112 20 145/69 (94) 98 01/04/19 04:00 97.5 101 18 141/74 (96) 01/04/19 00:30 165/83 01/04/19 00:00 99.1 113 20 163/75 (104) 01/03/19 20:00 98.2 116 150/87 (108) 01/03/19 16:00 98.0 116 20 146/76 (99) 96 Intake and Output 01/03/19 01/04/19 19:00 07:00 Intake Total 350 ml Balance 350 ml Intake Oral 350 ml # Voids 3 1 # Bowel Movements 1 Objective General Appearance: WD/WN Lines, tubes and drains: peripheral HEENT: normocephalic, atraumatic Neck: non-tender Respiratory/Chest: chest wall non-tender, normal breath sounds Breasts: no masses Cardiovascular/Chest: normal peripheral pulses Genitourinary/Rectal: normal genital exam Extremities: normal range of motion Laboratory Tests 01/04/19 06:20: White Blood Count 6.7, Red Blood Count 5.00, Hemoglobin 14.2, Hematocrit 43.3, Mean Corpuscular Volume 87, Mean Corpuscular Hemoglobin 28.5, Mean Corpuscular Hemoglobin Concent 32.8, Red Cell Distribution Width 15.7H, Platelet Count 170, Mean Platelet Volume 7.4, Neutrophils (%) (Auto) 61.0, Lymphocytes (%) (Auto) 28.1, Monocytes (%) (Auto) 8.7, Eosinophils (%) (Auto) 1.0, Basophils (%) (Auto ) 1.2, Sodium Level 134L, Potassium Level 3.7, Chloride Level 97L, Carbon Dioxide Level 28, Anion Gap 9, Blood Urea Nitrogen 26H, Creatinine 1.2, Estimat Glomerular Filtration Rate , Glucose Level 116H, Calcium Level 8.9 Current Medications Medications (Trade) Dose Ordered Sig/Stefanie Route PRN Reason Start Time Stop Time Status Last Admin Dose Admin Acetaminophen (Tylenol) 650 mg Q4H PRN ORAL fever 12/29/18 18:15 01/28/19 18:14 12/31/18 03:15 Al Hydroxide/Mg Hydroxide (Mylanta II) 30 ml Q6H PRN ORAL dyspepsia 12/29/18 18:15 01/28/19 18:14 Aspirin (ASA) 81 mg DAILY ORAL 12/30/18 09:00 01/29/19 08:59 01/04/19 08:44 Atorvastatin Calcium (Lipitor) 40 mg BEDTIME ORAL 12/30/18 21:00 01/29/19 20:59 01/03/19 20:07 Clonidine HCl (Catapres Tab) 0.1 mg EVERY 6 HOURS PRN ORAL SBP>160 12/31/18 23:00 01/30/19 22:59 01/04/19 00:30 Dextrose (Dextrose 50%) 25 ml Q30M PRN IV Hypoglycemia 12/29/18 18:30 01/28/19 18:18 Dextrose (Dextrose 50%) 50 ml Q30M PRN IV hypoglycemia 12/29/18 18:30 01/28/19 18:29 Diltiazem HCl (Cardizem CD) 180 mg DAILY ORAL 12/30/18 09:00 01/29/19 08:59 01/04/19 08:46 Duloxetine HCl (Cymbalta) 60 mg DAILY ORAL 12/30/18 09:00 01/29/19 08:59 01/04/19 08:45 Famotidine (Pepcid) 20 mg BID ORAL 12/30/18 09:00 01/29/19 08:59 01/04/19 08:44 Gabapentin (Neurontin) 100 mg BID ORAL 12/30/18 09:00 01/29/19 08:59 01/04/19 08:44 Lorazepam (Ativan 2mg/ml 1ml) 0.5 mg Q4H PRN IV For Anxiety 12/29/18 18:15 01/05/19 18:14 Losartan Potassium (Cozaar) 100 mg DAILY ORAL 12/30/18 09:00 01/29/19 08:59 01/04/19 08:45 Meclizine HCl (Antivert) 25 mg STAT PRN ORAL for dizziness 12/29/18 12:15 01/28/19 12:14 Metformin HCl (Glucophage) 500 mg THREE TIMES A DAY ORAL 12/30/18 09:00 01/29/19 08:59 01/04/19 12:02 Mirtazapine (Remeron) 7.5 mg QHS PRN ORAL Insomnia 12/30/18 21:00 01/29/19 20:59 Morphine Sulfate (Morphine Sulfate) 1 mg Q4H PRN IVP For Pain 12/29/18 18:15 01/05/19 18:14 01/02/19 19:43 Multivitamins (Multivitamins) 1 tab DAILY ORAL 12/30/18 09:00 01/29/19 08:59 01/04/19 08:45 Nateglinide (Starlix) 60 mg THREE TIMES A DAY ORAL 12/30/18 09:00 01/29/19 08:59 01/04/19 12:02 Ondansetron HCl (Zofran) 4 mg Q6H PRN IVP Nausea & Vomiting 12/29/18 18:15 01/28/19 18:14 Polyethylene Glycol (Miralax) 17 gm HSPRN PRN ORAL Constipation 12/29/18 18:15 01/28/19 18:14 Prednisone (predniSONE) 5 mg DAILY ORAL 12/30/18 09:00 01/29/19 08:59 01/04/19 08:44 Triamterene/HCTZ (Dyazide) 1 cap DAILY ORAL 12/30/18 09:00 01/29/19 08:59 01/04/19 08:44 Demetria Veloz MD Jan 04, 2019 14:04
[2019-01-04 16:00] VITALS: BP 120/69
--- NOTE | 2019-01-04 19:42 | NUR ---
HAND-OFF: Report given to EDSON Lloyd.
--- NOTE | 2019-01-04 19:44 | Internal Med Progress Note ---
Subjective Date of Service: Jan 04, 2019 Physician Name Koby Veloz Attending Physician Eyad Morales MD Current Medications Medications (Trade) Dose Ordered Sig/Stefanie Route PRN Reason Start Time Stop Time Status Last Admin Dose Admin Acetaminophen (Tylenol) 650 mg Q4H PRN ORAL fever 12/29/18 18:15 01/28/19 18:14 12/31/18 03:15 Al Hydroxide/Mg Hydroxide (Mylanta II) 30 ml Q6H PRN ORAL dyspepsia 12/29/18 18:15 01/28/19 18:14 Aspirin (ASA) 81 mg DAILY ORAL 12/30/18 09:00 01/29/19 08:59 01/04/19 08:44 Atorvastatin Calcium (Lipitor) 40 mg BEDTIME ORAL 12/30/18 21:00 01/29/19 20:59 01/03/19 20:07 Clonidine HCl (Catapres Tab) 0.1 mg EVERY 6 HOURS PRN ORAL SBP>160 12/31/18 23:00 01/30/19 22:59 01/04/19 00:30 Dextrose (Dextrose 50%) 25 ml Q30M PRN IV Hypoglycemia 12/29/18 18:30 01/28/19 18:18 Dextrose (Dextrose 50%) 50 ml Q30M PRN IV hypoglycemia 12/29/18 18:30 01/28/19 18:29 Diltiazem HCl (Cardizem CD) 180 mg DAILY ORAL 12/30/18 09:00 01/29/19 08:59 01/04/19 08:46 Duloxetine HCl (Cymbalta) 60 mg DAILY ORAL 12/30/18 09:00 01/29/19 08:59 01/04/19 08:45 Famotidine (Pepcid) 20 mg BID ORAL 12/30/18 09:00 01/29/19 08:59 01/04/19 17:14 Gabapentin (Neurontin) 100 mg BID ORAL 12/30/18 09:00 01/29/19 08:59 01/04/19 17:15 Lorazepam (Ativan 2mg/ml 1ml) 0.5 mg Q4H PRN IV For Anxiety 12/29/18 18:15 01/05/19 18:14 Losartan Potassium (Cozaar) 100 mg DAILY ORAL 12/30/18 09:00 01/29/19 08:59 01/04/19 08:45 Meclizine HCl (Antivert) 25 mg STAT PRN ORAL for dizziness 12/29/18 12:15 01/28/19 12:14 Metformin HCl (Glucophage) 500 mg THREE TIMES A DAY ORAL 12/30/18 09:00 01/29/19 08:59 01/04/19 17:14 Mirtazapine (Remeron) 7.5 mg QHS PRN ORAL Insomnia 12/30/18 21:00 01/29/19 20:59 Morphine Sulfate (Morphine Sulfate) 1 mg Q4H PRN IVP For Pain 12/29/18 18:15 01/05/19 18:14 01/02/19 19:43 Multivitamins (Multivitamins) 1 tab DAILY ORAL 12/30/18 09:00 01/29/19 08:59 01/04/19 08:45 Nateglinide (Starlix) 60 mg THREE TIMES A DAY ORAL 12/30/18 09:00 01/29/19 08:59 01/04/19 17:14 Ondansetron HCl (Zofran) 4 mg Q6H PRN IVP Nausea & Vomiting 12/29/18 18:15 01/28/19 18:14 Polyethylene Glycol (Miralax) 17 gm HSPRN PRN ORAL Constipation 12/29/18 18:15 01/28/19 18:14 Prednisone (predniSONE) 5 mg DAILY ORAL 12/30/18 09:00 01/29/19 08:59 01/04/19 08:44 Triamterene/HCTZ (Dyazide) 1 cap DAILY ORAL 12/30/18 09:00 01/29/19 08:59 01/04/19 08:44 Allergies: Coded Allergies: SHELLFISH DERIVED (Unverified Allergy, Unknown, 12/29/18) SULFA (SULFONAMIDE ANTIBIOTICS) (Verified Allergy, Unknown, 12/29/18) Uncoded Allergies: SHELLFISH (Allergy, Unknown, 12/29/18) ROS Limited/Unobtainable: No Constitutional: Reports: no symptoms HEENT: Reports: no symptoms Cardiovascular: Reports: no symptoms Respiratory: Reports: no symptoms Gastrointestinal/Abdominal: Reports: no symptoms Genitourinary: Reports: no symptoms Neurologic/Psychiatric: Reports: no symptoms Subjective 73 YO F admitted with frequent falls and weakness bilateral legs. Cover for Int Med-Dr Morales. Await SNF placement Objective Last Vital Signs Date Time Temp Pulse Resp B/P (MAP) Pulse Ox O2 Delivery O2 Flow Rate FiO2 01/04/19 16:00 98.9 117 20 120/69 (86) 98 12/31/18 21:00 Room Air Laboratory Tests Test 01/04/19 06:20 White Blood Count 6.7 K/UL (4.8-10.8) Red Blood Count 5.00 M/UL (4.20-5.40) Hemoglobin 14.2 G/DL (12.0-16.0) Hematocrit 43.3 % (37.0-47.0) Mean Corpuscular Volume 87 FL (80-99) Mean Corpuscular Hemoglobin 28.5 PG (27.0-31.0) Mean Corpuscular Hemoglobin Concent 32.8 G/DL (32.0-36.0) Red Cell Distribution Width 15.7 % (11.6-14.8) H Platelet Count 170 K/UL (150-450) Mean Platelet Volume 7.4 FL (6.5-10.1) Neutrophils (%) (Auto) 61.0 % (45.0-75.0) Lymphocytes (%) (Auto) 28.1 % (20.0-45.0) Monocytes (%) (Auto) 8.7 % (1.0-10.0) Eosinophils (%) (Auto) 1.0 % (0.0-3.0) Basophils (%) (Auto) 1.2 % (0.0-2.0) Sodium Level 134 MMOL/L (136-145) L Potassium Level 3.7 MMOL/L (3.5-5.1) Chloride Level 97 MMOL/L (98-107) L Carbon Dioxide Level 28 MMOL/L (21-32) Anion Gap 9 mmol/L (5-15) Blood Urea Nitrogen 26 mg/dL (7-18) H Creatinine 1.2 MG/DL (0.55-1.30) Estimat Glomerular Filtration Rate mL/min (>60) Glucose Level 116 MG/DL (74-106) H Calcium Level 8.9 MG/DL (8.5-10.1) Intake and Output 01/03/19 01/04/19 19:00 07:00 Intake Total 350 ml Balance 350 ml Intake Oral 350 ml # Voids 3 1 # Bowel Movements 1 Objective PHYSICAL EXAMINATION: VITAL SIGNS: Temperature 97.6, respirations 20, pulse 80, blood pressure 137/76. GENERAL: The patient is a well-developed and well-nourished slightly obese female, in no apparent distress. HEENT: Eyes, pupils equal and responsive to light and accommodation. Extraocular movements are intact. NECK: Supple without lymphadenopathy. CHEST: Lungs are clear to auscultation bilaterally without wheezes or rales. CARDIOVASCULAR: Regular rhythm and rate. S1-S2 are normal without murmurs, rubs, or gallops. ABDOMEN: Soft, nontender, and nondistended. Positive bowel sounds. No evidence of hepatosplenomegaly. No rebound or guarding noted. EXTREMITIES: Negative for clubbing, cyanosis, or edema. RECTAL/GENITAL: Refused. NEUROLOGIC: Cranial nerves II through XII are grossly intact without focal deficits. Motor strength is 5/5 in the bilateral lower extremities and 5/5 in the bilateral upper extremities. Deep tendon reflexes are 2+ plantar. Assessment/Plan Assessment/Plan ASSESSMENT: This is a 73-year-old female. 1. Weakness in bilateral lower extremities. 2. Bilateral knee pain. 3. Frequent falls. 4. Herniated nucleus pulposus of the lumbar spine. 5. Hypertension. 6. Chronic obstructive pulmonary disease. 7. Polymyalgia rheumatica. 8. Fibromyalgia. 9. lumbar stenosis (L1-L2) TREATMENT: 1. Weakness of bilateral lower extremities/herniated nucleus pulposus of the lumbar spine. An MRI of the spine is pending. Herniated disc may be the cause of weakness in bilateral lower extremities. We will await results of the MRI. 2. Bilateral knee pain. The patient has a history of frequent falls. X-rays of bilateral knees is pending. 3. Diabetes type 2. A NovoLog sliding scale has been instituted. 4. Hypertension. Continue losartan as above. 5. Chronic obstructive pulmonary disease. Continue albuterol metered-dose inhaler as above. 6. Polymyalgia rheumatica. 7. Fibromyalgia. 8. Ortho consult-Dr Sales 9. Await [facility]-Koby Charles MD Jan 04, 2019 19:44
--- NOTE | 2019-01-04 19:51 | NUR ---
NURSE NOTES: Received patient awake,alert,verbal,resting in bed,comfortable.
[2019-01-04 20:00] VITALS: BP 119/56
[2019-01-04] MEDS: Atorvastatin 20mg tab ORAL SCH (20:17)
--- NOTE | 2019-01-04 20:39 | NUR ---
CASE MANAGEMENT: REVIEW SI: S/P FALL . COPD T 99.0 HR 116 RR 20 BP 145/69 SAT 98% ROOM AIR NA 134 IS: ASA PO QD CARDIZEM PO QD COZAAR PO QD MORPHINE IV Q4HR PRN MED/SURG STATUS DCP: PATIENT IS FROM HOME
--- NOTE | 2019-01-04 22:34 | General Progress Note ---
Assessment/Plan Problem List: (1) Anxiety disorder ICD Codes: F41.9 - Anxiety disorder, unspecified SNOMED: 203431178 (2) MDD (major depressive disorder), recurrent episode, moderate ICD Codes: F33.1 - Major depressive disorder, recurrent, moderate SNOMED: 62845071, [id number] Assessment/Plan cymbalta 60mg po qam remeron qhs provided ro/st Subjective Neurologic/Psychiatric: Reports: anxiety, depressed, emotional problems Allergies: Coded Allergies: SHELLFISH DERIVED (Unverified Allergy, Unknown, 12/29/18) SULFA (SULFONAMIDE ANTIBIOTICS) (Verified Allergy, Unknown, 12/29/18) Uncoded Allergies: SHELLFISH (Allergy, Unknown, 12/29/18) Objective Last 24 Hour Vital Signs Date Time Temp Pulse Resp B/P (MAP) Pulse Ox O2 Delivery O2 Flow Rate FiO2 01/04/19 20:48 98.1 01/04/19 20:00 98.1 100 18 119/56 (77) 97 01/04/19 16:00 98.9 117 20 120/69 (86) 98 01/04/19 12:00 99.0 116 19 125/66 (85) 98 01/04/19 08:46 112 145/69 01/04/19 08:45 145/69 01/04/19 08:00 98.4 112 20 145/69 (94) 98 01/04/19 04:00 97.5 101 18 141/74 (96) 01/04/19 00:30 165/83 01/04/19 00:00 99.1 113 20 163/75 (104) Intake and Output 01/03/19 01/04/19 19:00 07:00 Intake Total 350 ml Balance 350 ml Intake Oral 350 ml # Voids 3 1 # Bowel Movements 1 Laboratory Tests 01/04/19 06:20: White Blood Count 6.7, Red Blood Count 5.00, Hemoglobin 14.2, Hematocrit 43.3, Mean Corpuscular Volume 87, Mean Corpuscular Hemoglobin 28.5, Mean Corpuscular Hemoglobin Concent 32.8, Red Cell Distribution Width 15.7H, Platelet Count 170, Mean Platelet Volume 7.4, Neutrophils (%) (Auto) 61.0, Lymphocytes (%) (Auto) 28.1, Monocytes (%) (Auto) 8.7, Eosinophils (%) (Auto) 1.0, Basophils (%) (Auto ) 1.2, Sodium Level 134L, Potassium Level 3.7, Chloride Level 97L, Carbon Dioxide Level 28, Anion Gap 9, Blood Urea Nitrogen 26H, Creatinine 1.2, Estimat Glomerular Filtration Rate , Glucose Level 116H, Calcium Level 8.9 Height (Feet): 5 Height (Inches): 4.00 Weight (Pounds): 190 General Appearance: no apparent distress, alert Neurologic: oriented x 3, depressed affect Devan Whitley MD Jan 04, 2019 22:34
[2019-01-05 04:00] VITALS: BP 143/74
--- NOTE | 2019-01-05 07:25 | NUR ---
HAND-OFF: Report given to Sudha White RN.
--- NOTE | 2019-01-05 07:25 | NUR ---
NURSE NOTES: Patient alert x4, on room air, so sign of shortness of breath and no sign of chest pain; bed ramirez within reach; skin intact; IV- LAC flushes well; side rails up x2, bed at lowest position, breaks engaged. Call light within reach. Will keep monitoring blood sugar and give scheduled medications as ordered.
[2019-01-05 08:04] LABS: BASOPHILS % (AUTO) 0.8 % (0.0-2.0); HEMATOCRIT 43.6 % (37.0-47.0); HEMOGLOBIN 14.5 G/DL (12.0-16.0); LYMPHOCYTES % (AUTO) 28.3 % (20.0-45.0); MEAN CORPUSCULAR VOLUME 86 FL (80-99); MONOCYTES % (AUTO) 10.3 % (1.0-10.0); NEUTROPHILS % (AUTO) 59.6 % (45.0-75.0); PLATELET COUNT 184 K/UL (150-450); RED BLOOD COUNT 5.04 M/UL (4.20-5.40); RED CELL DISTRIBUTION WIDTH 15.3 % (11.6-14.8); WHITE BLOOD COUNT 6.7 K/UL (4.8-10.8)
[2019-01-05 08:35] VITALS: BP 142/70
[2019-01-05] MEDS: Aspirin Baby 81mg ORAL SCH (08:43)
[2019-01-05] MEDS: dilTIAZem HCl CD 180mg cap ORAL SCH (08:43)
[2019-01-05] MEDS: Nateglinide 60mg tab ORAL SCH ×3 (08:43→17:04)
[2019-01-05] MEDS: Triamterene/Hctz 37.5/25 cap ORAL SCH (08:43)
[2019-01-05] MEDS: metFORMIN 500mg tab ORAL SCH ×3 (08:44→17:04)
[2019-01-05] MEDS: Losartan 50mg tab ORAL SCH (08:44)
[2019-01-05] MEDS: DULoxetine 30mg cap ORAL SCH (08:46)
[2019-01-05 09:08] LABS: ANION GAP 12 mmol/L (5-15); BLOOD UREA NITROGEN 27 mg/dL (7-18); CALCIUM 8.9 MG/DL (8.5-10.1); CARBON DIOXIDE 25 MMOL/L (21-32); CHLORIDE 97 MMOL/L (98-107); POTASSIUM 3.3 MMOL/L (3.5-5.1); SODIUM 134 MMOL/L (136-145)
--- NOTE | 2019-01-05 10:00 | NUR ---
NURSE NOTES: Patient K 3.[address] Morales notified. Waiting for order.
--- NOTE | 2019-01-05 10:07 | NUR ---
NURSE NOTES: Order received from MD Morales, carried out as ordered. Will keep monitoring.
[2019-01-05 12:00] VITALS: BP 168/89
--- NOTE | 2019-01-05 12:20 | NUR ---
WRITING TUTOR NOTES SPOKE WITH ADRIAN FROM [facility] TELEPHONE REVIEW GIVEN FOR SNF PLACEMENT, WILL FOLLOW UP WITH AUTHORIZATION.
--- NOTE | 2019-01-05 13:34 | Pulmonology Progress Note ---
Assessment/Plan Problems: (1) COPD (chronic obstructive pulmonary disease) (2) Fall (3) Polymyalgia rheumatica (4) Spinal stenosis (5) History of hypertension (6) Diabetes mellitus Assessment/Plan no new complains doing better no new complains all CR's reviewed sliding scale diabetic diet monitor BP wants to go to long-term Subjective ROS Limited/Unobtainable: No Constitutional: Reports: no symptoms HEENT: Repors: no symptoms Respiratory: Reports: no symptoms Allergies: Coded Allergies: SHELLFISH DERIVED (Unverified Allergy, Unknown, 12/29/18) SULFA (SULFONAMIDE ANTIBIOTICS) (Verified Allergy, Unknown, 12/29/18) Uncoded Allergies: SHELLFISH (Allergy, Unknown, 12/29/18) Objective Last 24 Hour Vital Signs Date Time Temp Pulse Resp B/P (MAP) Pulse Ox O2 Delivery O2 Flow Rate FiO2 01/05/19 12:06 168/89 01/05/19 12:00 98.8 125 20 168/89 (115) 95 01/05/19 08:44 142/70 01/05/19 08:43 62 142/70 01/05/19 08:35 98.8 62 20 142/70 (94) 99 01/05/19 04:00 97.8 98 18 143/74 (97) 94 01/04/19 20:48 98.1 01/04/19 20:00 98.1 100 18 119/56 (77) 97 01/04/19 16:00 98.9 117 20 120/69 (86) 98 Intake and Output 01/04/19 01/05/19 19:00 07:00 Intake Total 720 ml 260 ml Balance 720 ml 260 ml Intake Oral 720 ml 260 ml # Voids 3 6 # Bowel Movements 2 Objective General Appearance: WD/WN Lines, tubes and drains: peripheral HEENT: normocephalic, atraumatic Neck: non-tender Respiratory/Chest: chest wall non-tender, normal breath sounds Breasts: no masses Cardiovascular/Chest: normal peripheral pulses Genitourinary/Rectal: normal genital exam Extremities: normal range of motion Laboratory Tests 01/05/19 05:30: White Blood Count 6.7, Red Blood Count 5.04, Hemoglobin 14.5, Hematocrit 43.6, Mean Corpuscular Volume 86, Mean Corpuscular Hemoglobin 28.6, Mean Corpuscular Hemoglobin Concent 33.1, Red Cell Distribution Width 15.3H, Platelet Count 184, Mean Platelet Volume 7.5, Neutrophils (%) (Auto) 59.6, Lymphocytes (%) (Auto) 28.3, Monocytes (%) (Auto) 10.3H, Eosinophils (%) (Auto) 1.0, Basophils (%) ( Auto) 0.8, Sodium Level 134L, Potassium Level 3.3L, Chloride Level 97L, Carbon Dioxide Level 25, Anion Gap 12, Blood Urea Nitrogen 27H, Creatinine 1.0, Estimat Glomerular Filtration Rate , Glucose Level 104, Calcium Level 8.9 Current Medications Medications (Trade) Dose Ordered Sig/Stefanie Route PRN Reason Start Time Stop Time Status Last Admin Dose Admin Acetaminophen (Tylenol) 650 mg Q4H PRN ORAL fever 12/29/18 18:15 01/28/19 18:14 01/04/19 20:18 Al Hydroxide/Mg Hydroxide (Mylanta II) 30 ml Q6H PRN ORAL dyspepsia 12/29/18 18:15 01/28/19 18:14 Aspirin (ASA) 81 mg DAILY ORAL 12/30/18 09:00 01/29/19 08:59 01/05/19 08:43 Atorvastatin Calcium (Lipitor) 40 mg BEDTIME ORAL 12/30/18 21:00 01/29/19 20:59 01/04/19 20:17 Clonidine HCl (Catapres Tab) 0.1 mg EVERY 6 HOURS PRN ORAL SBP>160 12/31/18 23:00 01/30/19 22:59 01/05/19 12:06 Dextrose (Dextrose 50%) 25 ml Q30M PRN IV Hypoglycemia 12/29/18 18:30 01/28/19 18:18 Dextrose (Dextrose 50%) 50 ml Q30M PRN IV hypoglycemia 12/29/18 18:30 01/28/19 18:29 Diltiazem HCl (Cardizem CD) 180 mg DAILY ORAL 12/30/18 09:00 01/29/19 08:59 01/05/19 08:43 Duloxetine HCl (Cymbalta) 60 mg DAILY ORAL 12/30/18 09:00 01/29/19 08:59 01/05/19 08:46 Famotidine (Pepcid) 20 mg BID ORAL 12/30/18 09:00 01/29/19 08:59 01/05/19 08:43 Gabapentin (Neurontin) 100 mg BID ORAL 12/30/18 09:00 01/29/19 08:59 01/05/19 08:43 Lorazepam (Ativan 2mg/ml 1ml) 0.5 mg Q4H PRN IV For Anxiety 12/29/18 18:15 01/05/19 18:14 Losartan Potassium (Cozaar) 100 mg DAILY ORAL 12/30/18 09:00 01/29/19 08:59 01/05/19 08:44 Meclizine HCl (Antivert) 25 mg STAT PRN ORAL for dizziness 12/29/18 12:15 01/28/19 12:14 Metformin HCl (Glucophage) 500 mg THREE TIMES A DAY ORAL 12/30/18 09:00 01/29/19 08:59 01/05/19 12:07 Mirtazapine (Remeron) 7.5 mg QHS PRN ORAL Insomnia 12/30/18 21:00 01/29/19 20:59 Morphine Sulfate (Morphine Sulfate) 1 mg Q4H PRN IVP For Pain 12/29/18 18:15 01/05/19 18:14 01/02/19 19:43 Multivitamins (Multivitamins) 1 tab DAILY ORAL 12/30/18 09:00 01/29/19 08:59 01/05/19 08:44 Nateglinide (Starlix) 60 mg THREE TIMES A DAY ORAL 12/30/18 09:00 01/29/19 08:59 01/05/19 12:07 Ondansetron HCl (Zofran) 4 mg Q6H PRN IVP Nausea & Vomiting 12/29/18 18:15 01/28/19 18:14 Polyethylene Glycol (Miralax) 17 gm HSPRN PRN ORAL Constipation 12/29/18 18:15 01/28/19 18:14 Prednisone (predniSONE) 5 mg DAILY ORAL 12/30/18 09:00 01/29/19 08:59 01/05/19 08:43 Triamterene/HCTZ (Dyazide) 1 cap DAILY ORAL 12/30/18 09:00 01/29/19 08:59 01/05/19 08:43 Demetria Veloz MD Jan 05, 2019 13:34
--- NOTE | 2019-01-05 14:00 | NUR ---
NURSE NOTES: Patient's blood pressure for 1200 were 168/89 P 125; Clonidine 0.1 mg give. Checked back BP 115/60 P 60. Will keep on monitoring.
[2019-01-05 16:00] VITALS: BP 116/60
--- NOTE | 2019-01-05 16:10 | NUR ---
*-* INSURANCE *-* UPDATED CLINICALS AND REVIEW HAVE BEEN FAXED TO: HAMZAH ANDRES:IDA DUBOIS P:[phone] F:[phone] Addendum: 01/05/19 at 1612 by LONA AUSTIN CM ALSO SENT TO: [facility]: - [phone] /REVIEW/CLINICAL
--- NOTE | 2019-01-05 19:01 | NUR ---
HAND-OFF: Report given to EDSON Lloyd.
--- NOTE | 2019-01-05 19:33 | NUR ---
NURSE NOTES: Received patient awake,alert,verbal,no complaints,sitting at the side of the bed,children at bedside.
[2019-01-05 20:00] VITALS: BP 153/81
--- NOTE | 2019-01-05 20:06 | Internal Med Progress Note ---
Subjective Date of Service: Jan 05, 2019 Physician Name VelozKoby Attending Physician Eyad Morales MD Current Medications Medications (Trade) Dose Ordered Sig/Stefanie Route PRN Reason Start Time Stop Time Status Last Admin Dose Admin Acetaminophen (Tylenol) 650 mg Q4H PRN ORAL fever 12/29/18 18:15 01/28/19 18:14 01/04/19 20:18 Al Hydroxide/Mg Hydroxide (Mylanta II) 30 ml Q6H PRN ORAL dyspepsia 12/29/18 18:15 01/28/19 18:14 Aspirin (ASA) 81 mg DAILY ORAL 12/30/18 09:00 01/29/19 08:59 01/05/19 08:43 Atorvastatin Calcium (Lipitor) 40 mg BEDTIME ORAL 12/30/18 21:00 01/29/19 20:59 01/04/19 20:17 Clonidine HCl (Catapres Tab) 0.1 mg EVERY 6 HOURS PRN ORAL SBP>160 12/31/18 23:00 01/30/19 22:59 01/05/19 12:06 Dextrose (Dextrose 50%) 25 ml Q30M PRN IV Hypoglycemia 12/29/18 18:30 01/28/19 18:18 Dextrose (Dextrose 50%) 50 ml Q30M PRN IV hypoglycemia 12/29/18 18:30 01/28/19 18:29 Diltiazem HCl (Cardizem CD) 180 mg DAILY ORAL 12/30/18 09:00 01/29/19 08:59 01/05/19 08:43 Duloxetine HCl (Cymbalta) 60 mg DAILY ORAL 12/30/18 09:00 01/29/19 08:59 01/05/19 08:46 Famotidine (Pepcid) 20 mg BID ORAL 12/30/18 09:00 01/29/19 08:59 01/05/19 17:05 Gabapentin (Neurontin) 100 mg BID ORAL 12/30/18 09:00 01/29/19 08:59 01/05/19 17:05 Losartan Potassium (Cozaar) 100 mg DAILY ORAL 12/30/18 09:00 01/29/19 08:59 01/05/19 08:44 Meclizine HCl (Antivert) 25 mg STAT PRN ORAL for dizziness 12/29/18 12:15 01/28/19 12:14 Metformin HCl (Glucophage) 500 mg THREE TIMES A DAY ORAL 12/30/18 09:00 01/29/19 08:59 01/05/19 17:04 Mirtazapine (Remeron) 7.5 mg QHS PRN ORAL Insomnia 12/30/18 21:00 01/29/19 20:59 Multivitamins (Multivitamins) 1 tab DAILY ORAL 12/30/18 09:00 01/29/19 08:59 01/05/19 08:44 Nateglinide (Starlix) 60 mg THREE TIMES A DAY ORAL 12/30/18 09:00 01/29/19 08:59 01/05/19 17:04 Ondansetron HCl (Zofran) 4 mg Q6H PRN IVP Nausea & Vomiting 12/29/18 18:15 01/28/19 18:14 Polyethylene Glycol (Miralax) 17 gm HSPRN PRN ORAL Constipation 12/29/18 18:15 01/28/19 18:14 Prednisone (predniSONE) 5 mg DAILY ORAL 12/30/18 09:00 01/29/19 08:59 01/05/19 08:43 Triamterene/HCTZ (Dyazide) 1 cap DAILY ORAL 12/30/18 09:00 01/29/19 08:59 01/05/19 08:43 Allergies: Coded Allergies: SHELLFISH DERIVED (Unverified Allergy, Unknown, 12/29/18) SULFA (SULFONAMIDE ANTIBIOTICS) (Verified Allergy, Unknown, 12/29/18) Uncoded Allergies: SHELLFISH (Allergy, Unknown, 12/29/18) ROS Limited/Unobtainable: No Constitutional: Reports: no symptoms HEENT: Reports: no symptoms Cardiovascular: Reports: no symptoms Respiratory: Reports: no symptoms Gastrointestinal/Abdominal: Reports: no symptoms Genitourinary: Reports: no symptoms Neurologic/Psychiatric: Reports: no symptoms Subjective 73 YO F admitted with frequent falls and weakness bilateral legs. Cover for Int Justin-Dr Morales. Await SNF placement Objective Last Vital Signs Date Time Temp Pulse Resp B/P (MAP) Pulse Ox O2 Delivery O2 Flow Rate FiO2 01/05/19 16:00 97.7 100 20 116/60 (78) 100 12/31/18 21:00 Room Air Laboratory Tests Test 01/05/19 05:30 White Blood Count 6.7 K/UL (4.8-10.8) Red Blood Count 5.04 M/UL (4.20-5.40) Hemoglobin 14.5 G/DL (12.0-16.0) Hematocrit 43.6 % (37.0-47.0) Mean Corpuscular Volume 86 FL (80-99) Mean Corpuscular Hemoglobin 28.6 PG (27.0-31.0) Mean Corpuscular Hemoglobin Concent 33.1 G/DL (32.0-36.0) Red Cell Distribution Width 15.3 % (11.6-14.8) H Platelet Count 184 K/UL (150-450) Mean Platelet Volume 7.5 FL (6.5-10.1) Neutrophils (%) (Auto) 59.6 % (45.0-75.0) Lymphocytes (%) (Auto) 28.3 % (20.0-45.0) Monocytes (%) (Auto) 10.3 % (1.0-10.0) H Eosinophils (%) (Auto) 1.0 % (0.0-3.0) Basophils (%) (Auto) 0.8 % (0.0-2.0) Sodium Level 134 MMOL/L (136-145) L Potassium Level 3.3 MMOL/L (3.5-5.1) L Chloride Level 97 MMOL/L (98-107) L Carbon Dioxide Level 25 MMOL/L (21-32) Anion Gap 12 mmol/L (5-15) Blood Urea Nitrogen 27 mg/dL (7-18) H Creatinine 1.0 MG/DL (0.55-1.30) Estimat Glomerular Filtration Rate mL/min (>60) Glucose Level 104 MG/DL (74-106) Calcium Level 8.9 MG/DL (8.5-10.1) Intake and Output 01/04/19 01/05/19 19:00 07:00 Intake Total 720 ml 260 ml Balance 720 ml 260 ml Intake Oral 720 ml 260 ml # Voids 3 6 # Bowel Movements 2 Objective PHYSICAL EXAMINATION: VITAL SIGNS: Temperature 97.6, respirations 20, pulse 80, blood pressure 137/76. GENERAL: The patient is a well-developed and well-nourished slightly obese female, in no apparent distress. HEENT: Eyes, pupils equal and responsive to light and accommodation. Extraocular movements are intact. NECK: Supple without lymphadenopathy. CHEST: Lungs are clear to auscultation bilaterally without wheezes or rales. CARDIOVASCULAR: Regular rhythm and rate. S1-S2 are normal without murmurs, rubs, or gallops. ABDOMEN: Soft, nontender, and nondistended. Positive bowel sounds. No evidence of hepatosplenomegaly. No rebound or guarding noted. EXTREMITIES: Negative for clubbing, cyanosis, or edema. RECTAL/GENITAL: Refused. NEUROLOGIC: Cranial nerves II through XII are grossly intact without focal deficits. Motor strength is 5/5 in the bilateral lower extremities and 5/5 in the bilateral upper extremities. Deep tendon reflexes are 2+ plantar. Assessment/Plan Assessment/Plan ASSESSMENT: This is a 73-year-old female. 1. Weakness in bilateral lower extremities. 2. Bilateral knee pain. 3. Frequent falls. 4. Herniated nucleus pulposus of the lumbar spine. 5. Hypertension. 6. Chronic obstructive pulmonary disease. 7. Polymyalgia rheumatica. 8. Fibromyalgia. 9. lumbar stenosis (L1-L2) TREATMENT: 1. Weakness of bilateral lower extremities/herniated nucleus pulposus of the lumbar spine. An MRI of the spine is pending. Herniated disc may be the cause of weakness in bilateral lower extremities. We will await results of the MRI. 2. Bilateral knee pain. The patient has a history of frequent falls. X-rays of bilateral knees is pending. 3. Diabetes type 2. A NovoLog sliding scale has been instituted. 4. Hypertension. Continue losartan as above. 5. Chronic obstructive pulmonary disease. Continue albuterol metered-dose inhaler as above. 6. Polymyalgia rheumatica. 7. Fibromyalgia. 8. Ortho consult-Dr Sales 9. Await [facility]-Koby Charles MD Jan 05, 2019 20:06
[2019-01-05] MEDS: Atorvastatin 20mg tab ORAL SCH (20:45)
[2019-01-06] VITALS (7 sets, daily range): BP systolic 136–173; BP diastolic 7–80
[2019-01-06 07:14] LABS: BASOPHILS % (AUTO) 1.8 % (0.0-2.0); EOSINOPHILS % (AUTO) 1.4 % (0.0-3.0); HEMATOCRIT 40.4 % (37.0-47.0); HEMOGLOBIN 13.4 G/DL (12.0-16.0); LYMPHOCYTES % (AUTO) 23.1 % (20.0-45.0); MEAN CORPUSCULAR VOLUME 86 FL (80-99); MONOCYTES % (AUTO) 10.3 % (1.0-10.0); NEUTROPHILS % (AUTO) 63.4 % (45.0-75.0); PLATELET COUNT 184 K/UL (150-450); RED CELL DISTRIBUTION WIDTH 15.2 % (11.6-14.8); WHITE BLOOD COUNT 6.6 K/UL (4.8-10.8)
--- NOTE | 2019-01-06 07:20 | NUR ---
HAND-OFF: Report given to Mahesh Ortiz RN.
--- NOTE | 2019-01-06 07:30 | NUR ---
NURSE NOTES: Received pt from [facility]. Pt is alert and orient x4.pt is in RA. No SOB or acute respiratory distress noted. Pt has intact iv access 20G SL. all needs attended, bed is locked and is in the lowest position. call light within easy reach. will continue to monitor.
[2019-01-06 08:04] LABS: ANION GAP 7 mmol/L (5-15); BLOOD UREA NITROGEN 25 mg/dL (7-18); CALCIUM 9.3 MG/DL (8.5-10.1); CARBON DIOXIDE 29 MMOL/L (21-32); CHLORIDE 97 MMOL/L (98-107); CREATININE 1.1 MG/DL (0.55-1.30); SODIUM 133 MMOL/L (136-145)
[2019-01-06] MEDS: dilTIAZem HCl CD 180mg cap ORAL SCH (09:41)
[2019-01-06] MEDS: Nateglinide 60mg tab ORAL SCH ×3 (09:41→17:06)
[2019-01-06] MEDS: DULoxetine 30mg cap ORAL SCH (09:41)
[2019-01-06] MEDS: Triamterene/Hctz 37.5/25 cap ORAL SCH (09:42)
[2019-01-06] MEDS: Aspirin Baby 81mg ORAL SCH (09:42)
[2019-01-06] MEDS: metFORMIN 500mg tab ORAL SCH ×3 (09:42→17:06)
[2019-01-06] MEDS: Losartan 50mg tab ORAL SCH (09:42)
--- NOTE | 2019-01-06 11:33 | NUR ---
RD ASSESSMENT & RECOMMENDATIONS SEE CARE ACTIVITY FOR COMPLETE ASSESSMENT DAILY ESTIMATED NEEDS: Needs based on DM, cardiac, pulmonary 60kg adj 25-30 kcals/kg [id number] total kcals 1-1.5 g protein/kg 60-90 g total protein Fluid per MD, on diuretics NUTRITION DIAGNOSIS: Altered nutrition related lab values r/t diabetes as evidenced by elev BG and POC, on oral hypoglycemics. CURRENT DIET: CCHO MED PO DIET RECOMMENDATIONS: CCHO MED + LOW NA diet ADDITIONAL RECOMMENDATIONS: 1) Obtain a calibrated bed scale wt as pt has conflicting wts: Stated: 170#, Bed scale: 182#, per EMR 190# 2 Add B-complex if pt is on diuretics 3) Monitor for continued good po intake 4) consider A1C for eval 5) Monitor lytes daily on diuretics
--- NOTE | 2019-01-06 14:49 | Pulmonology Progress Note ---
Assessment/Plan Problems: (1) COPD (chronic obstructive pulmonary disease) (2) Fall (3) Polymyalgia rheumatica (4) Spinal stenosis (5) History of hypertension (6) Diabetes mellitus Assessment/Plan no new complains doing better no new complains all CR's reviewed sliding scale diabetic diet monitor BP wants to go to [facility] Subjective HEENT: Repors: no symptoms Allergies: Coded Allergies: SHELLFISH DERIVED (Unverified Allergy, Unknown, 12/29/18) SULFA (SULFONAMIDE ANTIBIOTICS) (Verified Allergy, Unknown, 12/29/18) Uncoded Allergies: SHELLFISH (Allergy, Unknown, 12/29/18) Objective Last 24 Hour Vital Signs Date Time Temp Pulse Resp B/P (MAP) Pulse Ox O2 Delivery O2 Flow Rate FiO2 01/06/19 12:00 98.0 91 18 136/77 (96) 98 01/06/19 10:14 97.9 01/06/19 09:42 140/71 01/06/19 09:41 89 140/71 01/06/19 08:00 97.9 89 18 140/71 (94) 99 01/06/19 04:00 97.7 99 18 143/69 (93) 100 01/06/19 00:58 98.4 01/06/19 00:03 98.4 108 18 142/78 (99) 97 01/05/19 20:00 98.1 119 18 153/81 (105) 98 01/05/19 16:00 97.7 100 20 116/60 (78) 100 Intake and Output 01/05/19 01/06/19 19:00 07:00 Intake Total 720 ml Balance 720 ml Intake Oral 720 ml # Voids 2 1 # Bowel Movements 1 Objective General Appearance: WD/WN Lines, tubes and drains: peripheral HEENT: normocephalic, atraumatic Neck: non-tender Respiratory/Chest: chest wall non-tender, normal breath sounds Breasts: no masses Cardiovascular/Chest: normal peripheral pulses Genitourinary/Rectal: normal genital exam Extremities: normal range of motion Laboratory Tests 01/06/19 06:25: White Blood Count 6.6, Red Blood Count 4.70, Hemoglobin 13.4, Hematocrit 40.4, Mean Corpuscular Volume 86, Mean Corpuscular Hemoglobin 28.6, Mean Corpuscular Hemoglobin Concent 33.3, Red Cell Distribution Width 15.2H, Platelet Count 184, Mean Platelet Volume 7.7, Neutrophils (%) (Auto) 63.4, Lymphocytes (%) (Auto) 23.1, Monocytes (%) (Auto) 10.3H, Eosinophils (%) (Auto) 1.4, Basophils (%) ( Auto) 1.8, Sodium Level 133L, Potassium Level 4.0, Chloride Level 97L, Carbon Dioxide Level 29, Anion Gap 7, Blood Urea Nitrogen 25H, Creatinine 1.1, Estimat Glomerular Filtration Rate , Glucose Level 111H, Calcium Level 9.3 Current Medications Medications (Trade) Dose Ordered Sig/Stefanie Route PRN Reason Start Time Stop Time Status Last Admin Dose Admin Acetaminophen (Tylenol) 650 mg Q4H PRN ORAL fever and pain 01/06/19 09:45 01/28/19 18:14 01/06/19 09:44 Al Hydroxide/Mg Hydroxide (Mylanta II) 30 ml Q6H PRN ORAL dyspepsia 12/29/18 18:15 01/28/19 18:14 Aspirin (ASA) 81 mg DAILY ORAL 12/30/18 09:00 01/29/19 08:59 01/06/19 09:42 Atorvastatin Calcium (Lipitor) 40 mg BEDTIME ORAL 12/30/18 21:00 01/29/19 20:59 01/05/19 20:45 Clonidine HCl (Catapres Tab) 0.1 mg EVERY 6 HOURS PRN ORAL SBP>160 12/31/18 23:00 01/30/19 22:59 01/05/19 12:06 Dextrose (Dextrose 50%) 25 ml Q30M PRN IV Hypoglycemia 12/29/18 18:30 01/28/19 18:18 Dextrose (Dextrose 50%) 50 ml Q30M PRN IV hypoglycemia 12/29/18 18:30 01/28/19 18:29 Diltiazem HCl (Cardizem CD) 180 mg DAILY ORAL 12/30/18 09:00 01/29/19 08:59 01/06/19 09:41 Duloxetine HCl (Cymbalta) 60 mg DAILY ORAL 12/30/18 09:00 01/29/19 08:59 01/06/19 09:41 Famotidine (Pepcid) 20 mg BID ORAL 12/30/18 09:00 01/29/19 08:59 01/06/19 09:42 Gabapentin (Neurontin) 100 mg BID ORAL 12/30/18 09:00 01/29/19 08:59 01/06/19 09:42 Losartan Potassium (Cozaar) 100 mg DAILY ORAL 12/30/18 09:00 01/29/19 08:59 01/06/19 09:42 Meclizine HCl (Antivert) 25 mg STAT PRN ORAL for dizziness 12/29/18 12:15 01/28/19 12:14 Metformin HCl (Glucophage) 500 mg THREE TIMES A DAY ORAL 12/30/18 09:00 01/29/19 08:59 01/06/19 12:50 Mirtazapine (Remeron) 7.5 mg QHS PRN ORAL Insomnia 12/30/18 21:00 01/29/19 20:59 Multivitamins (Multivitamins) 1 tab DAILY ORAL 12/30/18 09:00 01/29/19 08:59 01/06/19 09:42 Nateglinide (Starlix) 60 mg THREE TIMES A DAY ORAL 12/30/18 09:00 01/29/19 08:59 01/06/19 12:50 Ondansetron HCl (Zofran) 4 mg Q6H PRN IVP Nausea & Vomiting 12/29/18 18:15 01/28/19 18:14 Polyethylene Glycol (Miralax) 17 gm HSPRN PRN ORAL Constipation 12/29/18 18:15 01/28/19 18:14 Prednisone (predniSONE) 5 mg DAILY ORAL 12/30/18 09:00 01/29/19 08:59 01/06/19 09:41 Triamterene/HCTZ (Dyazide) 1 cap DAILY ORAL 12/30/18 09:00 01/29/19 08:59 01/06/19 09:42 Demetria Veloz MD Jan 06, 2019 14:49
--- NOTE | 2019-01-06 17:47 | Internal Med Progress Note ---
Subjective Physician Name Eyad Morales Attending Physician Eyad Morales MD Current Medications Medications (Trade) Dose Ordered Sig/Stefanie Route PRN Reason Start Time Stop Time Status Last Admin Dose Admin Acetaminophen (Tylenol) 650 mg Q4H PRN ORAL fever and pain 01/06/19 09:45 01/28/19 18:14 01/06/19 09:44 Al Hydroxide/Mg Hydroxide (Mylanta II) 30 ml Q6H PRN ORAL dyspepsia 12/29/18 18:15 01/28/19 18:14 Aspirin (ASA) 81 mg DAILY ORAL 12/30/18 09:00 01/29/19 08:59 01/06/19 09:42 Atorvastatin Calcium (Lipitor) 40 mg BEDTIME ORAL 12/30/18 21:00 01/29/19 20:59 01/05/19 20:45 Clonidine HCl (Catapres Tab) 0.1 mg EVERY 6 HOURS PRN ORAL SBP>160 12/31/18 23:00 01/30/19 22:59 01/06/19 17:06 Dextrose (Dextrose 50%) 25 ml Q30M PRN IV Hypoglycemia 12/29/18 18:30 01/28/19 18:18 Dextrose (Dextrose 50%) 50 ml Q30M PRN IV hypoglycemia 12/29/18 18:30 01/28/19 18:29 Diltiazem HCl (Cardizem CD) 180 mg DAILY ORAL 12/30/18 09:00 01/29/19 08:59 01/06/19 09:41 Duloxetine HCl (Cymbalta) 60 mg DAILY ORAL 12/30/18 09:00 01/29/19 08:59 01/06/19 09:41 Famotidine (Pepcid) 20 mg BID ORAL 12/30/18 09:00 01/29/19 08:59 01/06/19 17:06 Gabapentin (Neurontin) 100 mg BID ORAL 12/30/18 09:00 01/29/19 08:59 01/06/19 17:06 Losartan Potassium (Cozaar) 100 mg DAILY ORAL 12/30/18 09:00 01/29/19 08:59 01/06/19 09:42 Meclizine HCl (Antivert) 25 mg STAT PRN ORAL for dizziness 12/29/18 12:15 01/28/19 12:14 Metformin HCl (Glucophage) 500 mg THREE TIMES A DAY ORAL 12/30/18 09:00 01/29/19 08:59 01/06/19 17:06 Mirtazapine (Remeron) 7.5 mg QHS PRN ORAL Insomnia 12/30/18 21:00 01/29/19 20:59 Multivitamins (Multivitamins) 1 tab DAILY ORAL 12/30/18 09:00 01/29/19 08:59 01/06/19 09:42 Nateglinide (Starlix) 60 mg THREE TIMES A DAY ORAL 12/30/18 09:00 01/29/19 08:59 01/06/19 17:06 Ondansetron HCl (Zofran) 4 mg Q6H PRN IVP Nausea & Vomiting 12/29/18 18:15 01/28/19 18:14 Polyethylene Glycol (Miralax) 17 gm HSPRN PRN ORAL Constipation 12/29/18 18:15 01/28/19 18:14 Prednisone (predniSONE) 5 mg DAILY ORAL 12/30/18 09:00 01/29/19 08:59 01/06/19 09:41 Triamterene/HCTZ (Dyazide) 1 cap DAILY ORAL 12/30/18 09:00 01/29/19 08:59 01/06/19 09:42 Allergies: Coded Allergies: SHELLFISH DERIVED (Unverified Allergy, Unknown, 12/29/18) SULFA (SULFONAMIDE ANTIBIOTICS) (Verified Allergy, Unknown, 12/29/18) Uncoded Allergies: SHELLFISH (Allergy, Unknown, 12/29/18) Subjective Awake, alert, responsive, complaining about bilateral lower extremity weakness, very anxious, denies any chest pain, denies any shortness of breath. Objective Last Vital Signs Date Time Temp Pulse Resp B/P (MAP) Pulse Ox O2 Delivery O2 Flow Rate FiO2 01/06/19 17:06 173/80 01/06/19 16:00 97.2 100 19 98 12/31/18 21:00 Room Air Laboratory Tests Test 01/06/19 06:25 White Blood Count 6.6 K/UL (4.8-10.8) Red Blood Count 4.70 M/UL (4.20-5.40) Hemoglobin 13.4 G/DL (12.0-16.0) Hematocrit 40.4 % (37.0-47.0) Mean Corpuscular Volume 86 FL (80-99) Mean Corpuscular Hemoglobin 28.6 PG (27.0-31.0) Mean Corpuscular Hemoglobin Concent 33.3 G/DL (32.0-36.0) Red Cell Distribution Width 15.2 % (11.6-14.8) H Platelet Count 184 K/UL (150-450) Mean Platelet Volume 7.7 FL (6.5-10.1) Neutrophils (%) (Auto) 63.4 % (45.0-75.0) Lymphocytes (%) (Auto) 23.1 % (20.0-45.0) Monocytes (%) (Auto) 10.3 % (1.0-10.0) H Eosinophils (%) (Auto) 1.4 % (0.0-3.0) Basophils (%) (Auto) 1.8 % (0.0-2.0) Sodium Level 133 MMOL/L (136-145) L Potassium Level 4.0 MMOL/L (3.5-5.1) Chloride Level 97 MMOL/L (98-107) L Carbon Dioxide Level 29 MMOL/L (21-32) Anion Gap 7 mmol/L (5-15) Blood Urea Nitrogen 25 mg/dL (7-18) H Creatinine 1.1 MG/DL (0.55-1.30) Estimat Glomerular Filtration Rate mL/min (>60) Glucose Level 111 MG/DL (74-106) H Calcium Level 9.3 MG/DL (8.5-10.1) Intake and Output 01/05/19 01/06/19 19:00 07:00 Intake Total 720 ml Balance 720 ml Intake Oral 720 ml # Voids 2 1 # Bowel Movements 1 Objective General: No acute distress, awake and alert HEENT: NCAT, sclera anicteric, PERRL, EOMI. Neck: Supple, no significant jugular venous distention, Lungs: clear to auscultation bilaterally, no Wheeze or Rales. Heart: Regular rate and rhythm, normal S1/S2, no murmurs. Abdomen: soft, nontender, nondistended. Normoactive bowel sounds, mild obesity. Extremities: No Cyanosis , clubbing or edema. Neuro: A&O x 3, Able to move upper extremity with 5/5 motor activity, motor in the lower extremities 2/5 bilaterally. Gait was not assessed due to patient status at this time. Skin: warm, no rashes or lesions Psych: Chest mood Assessment/Plan Assessment/Plan 1. Weakness in bilateral lower extremities most likely due to large disc extrusion at L1-2 compressing the cauda equina nerve roots. Moderate to severe central stenosis. Acuity of this finding is not known. 2. Bilateral knee pain. 3. Frequent falls. 4. Herniated nucleus pulposus of the lumbar spine. 5. Hypertension. 6. Chronic obstructive pulmonary disease. 7. Polymyalgia rheumatica. 8. Fibromyalgia. 9. lumbar stenosis (L1-L2) TREATMENT: 1. Weakness of bilateral lower extremities, discussed with the patient for possible surgical intervention however patient adamant refusing have a surgical procedure done at [facility] she would rather to see her spine surgeon at [facility] Dr. Ron Nieto. 2. Bilateral knee pain. The patient has a history of frequent falls. 3. Diabetes type 2. A NovoLog sliding scale has been instituted. 4. Hypertension. Continue losartan as above. 5. Chronic obstructive pulmonary disease. Continue albuterol metered-dose inhaler as above. 6. Polymyalgia rheumatica. 7. Fibromyalgia. 8. With the patient with regard to the surgical intervention she would deferred that to be followed at [facility] with her spine surgeon Dr. Ron Nieto. 9. Await [facility]-Eyad George MD Jan 06, 2019 17:47
--- NOTE | 2019-01-06 19:23 | NUR ---
HAND-OFF: Report given to SHAYE.
--- NOTE | 2019-01-06 19:49 | NUR ---
NURSE NOTES: PATIENT IN BED,AWAKE, ALERT, VERBALLY RESPONSIVE. IV IN PLACE. NO S/S DISTRESS. NO COMPLAINTS OF PAIN AT THIS TIME. BED IN LOWEST POSITION, CALL LIGHT WITHIN REACH, BED ALARM ON. WILL CONTINUE TO MONITOR.
[2019-01-06] MEDS: Atorvastatin 20mg tab ORAL SCH (20:28)
--- NOTE | 2019-01-06 20:45 | NUR ---
CASE MANAGEMENT: REVIEW SI: S/P FALL . COPD T 97.2 HR 100 RR 19 BP 173/80 SAT 98% ROOM AIR NA 133 BUN 25 IS: ASA PO QD CARDIZEM PO QD COZAAR PO QD MORPHINE IV Q4HR PRN MED/SURG STATUS DCP: PATIENT IS FROM HOME
[2019-01-07 00:34] VITALS: BP 147/85
[2019-01-07 04:57] VITALS: BP 153/72
--- NOTE | 2019-01-07 06:35 | NUR ---
NURSE NOTES: PATIENT ASLEEP, V/S STABLE.
--- NOTE | 2019-01-07 07:21 | Pulmonology Progress Note ---
Assessment/Plan Assessment/Plan ASSESSMENT Moderate to severe central stenosis with weakness in BLE most likely due to large disc extrusion at L1-2 compressing the cauda equina nerve roots Herniated nucleus pulposus of the lumbar spine Multilevel foraminal stenosis Bilateral knee pain. Frequent falls Hx of CVA HTN COPD Polymyalgia rheumatica. Fibromyalgia Major depressive disorder Anxiety disorder PLAN OF CARE MS floor CT head with evidence of old infarcts no acute intracranial pathology Venous duplex bilateral lower extremity no acute DVT Chest x-ray no acute cardia pulmonary pathology borderline cardiomegaly Images of lumbar spine x-ray and MRI noted LS MRI revealed Suspected, large disc extrusion at L1-2 compressing the cauda equina nerve roots. Moderate to severe central stenosis. Status post L2-S1 posterior instrumented fusion. Status post laminectomy at L2- 3 and L4-5 L5-S1. Multilevel neural foraminal stenosis pain management - controlled PT Rx requires max assistance with walker , fall precautions O2 HHN prn, CXR stable BP management with ARB and Dyazide, and optimize further prn continue ASA, statin GI prophayxlsi bowel regimen psych meds as per psych recs consider neuro surgery eval, -per primary discretion awaiting transfer to SNF case discussed and evaluated by supervising physician case discussed and evaluated by supervising physician Subjective Allergies: Coded Allergies: SHELLFISH DERIVED (Unverified Allergy, Unknown, 12/29/18) SULFA (SULFONAMIDE ANTIBIOTICS) (Verified Allergy, Unknown, 12/29/18) Uncoded Allergies: SHELLFISH (Allergy, Unknown, 12/29/18) Subjective no chest pain, no SOB, workin g with PT, reports difficulties with ambulation Objective Last 24 Hour Vital Signs Date Time Temp Pulse Resp B/P (MAP) Pulse Ox O2 Delivery O2 Flow Rate FiO2 01/07/19 04:57 98.0 75 18 153/72 (99) 100 01/07/19 02:57 97.9 01/07/19 00:34 97.9 91 18 147/85 (105) 99 01/06/19 20:00 97.7 98 18 141/7 (51) 97 01/06/19 17:30 159/75 (103) 01/06/19 17:06 173/80 01/06/19 16:00 97.2 100 19 173/80 (111) 98 01/06/19 12:00 98.0 91 18 136/77 (96) 98 01/06/19 09:42 140/71 01/06/19 09:41 89 140/71 01/06/19 08:00 97.9 89 18 140/71 (94) 99 Intake and Output 01/06/19 01/07/19 18:59 06:59 Intake Total 1220 ml 240 ml Balance 1220 ml 240 ml Intake Oral 1220 ml 240 ml # Voids 5 2 General Appearance: no acute distress, other - A/A/O x 3 depressed AA female HEENT: normocephalic, atraumatic, anicteric, mucous membranes moist Respiratory/Chest: lungs clear, no respiratory distress, no accessory muscle use Cardiovascular: normal rate, regular rhythm, no JVD Extremities: no edema, pedal pulses normal Neurologic/Psychiatric: abnormal gait, alert, oriented x 3, responsive Musculoskeletal: normal muscle bulk Current Medications Medications (Trade) Dose Ordered Sig/Stefanie Route PRN Reason Start Time Stop Time Status Last Admin Dose Admin Acetaminophen (Tylenol) 650 mg Q4H PRN ORAL fever and pain 01/06/19 09:45 01/28/19 18:14 01/07/19 02:27 Al Hydroxide/Mg Hydroxide (Mylanta II) 30 ml Q6H PRN ORAL dyspepsia 12/29/18 18:15 01/28/19 18:14 Aspirin (ASA) 81 mg DAILY ORAL 12/30/18 09:00 01/29/19 08:59 01/06/19 09:42 Atorvastatin Calcium (Lipitor) 40 mg BEDTIME ORAL 12/30/18 21:00 01/29/19 20:59 01/06/19 20:28 Clonidine HCl (Catapres Tab) 0.1 mg EVERY 6 HOURS PRN ORAL SBP>160 12/31/18 23:00 01/30/19 22:59 01/06/19 17:06 Dextrose (Dextrose 50%) 25 ml Q30M PRN IV Hypoglycemia 12/29/18 18:30 01/28/19 18:18 Dextrose (Dextrose 50%) 50 ml Q30M PRN IV hypoglycemia 12/29/18 18:30 01/28/19 18:29 Diltiazem HCl (Cardizem CD) 180 mg DAILY ORAL 12/30/18 09:00 01/29/19 08:59 01/06/19 09:41 Duloxetine HCl (Cymbalta) 60 mg DAILY ORAL 12/30/18 09:00 01/29/19 08:59 01/06/19 09:41 Famotidine (Pepcid) 20 mg BID ORAL 12/30/18 09:00 01/29/19 08:59 01/06/19 17:06 Gabapentin (Neurontin) 100 mg BID ORAL 12/30/18 09:00 01/29/19 08:59 01/06/19 17:06 Losartan Potassium (Cozaar) 100 mg DAILY ORAL 12/30/18 09:00 01/29/19 08:59 01/06/19 09:42 Meclizine HCl (Antivert) 25 mg STAT PRN ORAL for dizziness 12/29/18 12:15 01/28/19 12:14 Metformin HCl (Glucophage) 500 mg THREE TIMES A DAY ORAL 12/30/18 09:00 01/29/19 08:59 01/06/19 17:06 Mirtazapine (Remeron) 7.5 mg QHS PRN ORAL Insomnia 12/30/18 21:00 01/29/19 20:59 Multivitamins (Multivitamins) 1 tab DAILY ORAL 12/30/18 09:00 01/29/19 08:59 01/06/19 09:42 Nateglinide (Starlix) 60 mg THREE TIMES A DAY ORAL 12/30/18 09:00 01/29/19 08:59 01/06/19 17:06 Ondansetron HCl (Zofran) 4 mg Q6H PRN IVP Nausea & Vomiting 12/29/18 18:15 01/28/19 18:14 Polyethylene Glycol (Miralax) 17 gm HSPRN PRN ORAL Constipation 12/29/18 18:15 01/28/19 18:14 Prednisone (predniSONE) 5 mg DAILY ORAL 12/30/18 09:00 01/29/19 08:59 01/06/19 09:41 Triamterene/HCTZ (Dyazide) 1 cap DAILY ORAL 12/30/18 09:00 01/29/19 08:59 01/06/19 09:42 Elzbieta López NP Jan 07, 2019 07:21
--- NOTE | 2019-01-07 07:27 | NUR ---
HAND-OFF: Report given to DARREL SMITH RN.
[2019-01-07 08:00] VITALS: BP 141/76
[2019-01-07] MEDS: dilTIAZem HCl CD 180mg cap ORAL SCH (08:55)
[2019-01-07] MEDS: metFORMIN 500mg tab ORAL SCH ×3 (08:56→17:00)
[2019-01-07] MEDS: Triamterene/Hctz 37.5/25 cap ORAL SCH (08:56)
[2019-01-07] MEDS: Nateglinide 60mg tab ORAL SCH ×3 (08:56→17:00)
[2019-01-07] MEDS: DULoxetine 30mg cap ORAL SCH (08:56)
[2019-01-07] MEDS: Aspirin Baby 81mg ORAL SCH (08:56)
[2019-01-07] MEDS: Losartan 50mg tab ORAL SCH (08:56)
--- NOTE | 2019-01-07 11:00 | NUR ---
NURSE NOTES: PT AXOX4, CALM, RESTING IN BED. IN NO APPARENT DISTRESS AT THIS TIME. CALL LIGHT WITHIN REACH. WILL CONTINUE TO MONITOR.
[2019-01-07 12:00] VITALS: BP 128/72
--- NOTE | 2019-01-07 14:09 | NUR ---
CASE MANAGEMENT: REVIEW SI: S/P FALL . COPD T 97.0 HR 105 RR 20 BP 153/72 SAT 93% ROOM AIR IS: ASA PO QD CARDIZEM PO QD COZAAR PO QD MORPHINE IV Q4HR PRN MED/SURG STATUS DCP: PATIENT IS FROM HOME
[2019-01-07 15:54] VITALS: BP 130/67
--- NOTE | 2019-01-07 16:30 | NUR ---
CASE MANAGEMENT:DCPNOTE PATIENT REFERRED TO [facility] [phone] PATIENT IS ACCEPTED TO THE FACILITY PENDING AUTH. FACILITY WILL REQUEST AUTH WILL ON WEDNESDAY
--- NOTE | 2019-01-07 18:16 | Internal Med Progress Note ---
Subjective Date of Service: Jan 07, 2019 Physician Name VelozKoby Attending Physician Eyad Morales MD Current Medications Medications (Trade) Dose Ordered Sig/Stefanie Route PRN Reason Start Time Stop Time Status Last Admin Dose Admin Acetaminophen (Tylenol) 650 mg Q4H PRN ORAL fever and pain 01/06/19 09:45 01/28/19 18:14 01/07/19 10:00 Al Hydroxide/Mg Hydroxide (Mylanta II) 30 ml Q6H PRN ORAL dyspepsia 12/29/18 18:15 01/28/19 18:14 Aspirin (ASA) 81 mg DAILY ORAL 12/30/18 09:00 01/29/19 08:59 01/07/19 08:56 Atorvastatin Calcium (Lipitor) 40 mg BEDTIME ORAL 12/30/18 21:00 01/29/19 20:59 01/06/19 20:28 Clonidine HCl (Catapres Tab) 0.1 mg EVERY 6 HOURS PRN ORAL SBP>160 12/31/18 23:00 01/30/19 22:59 01/06/19 17:06 Dextrose (Dextrose 50%) 25 ml Q30M PRN IV Hypoglycemia 12/29/18 18:30 01/28/19 18:18 Dextrose (Dextrose 50%) 50 ml Q30M PRN IV hypoglycemia 12/29/18 18:30 01/28/19 18:29 Diltiazem HCl (Cardizem CD) 180 mg DAILY ORAL 12/30/18 09:00 01/29/19 08:59 01/07/19 08:55 Duloxetine HCl (Cymbalta) 60 mg DAILY ORAL 12/30/18 09:00 01/29/19 08:59 01/07/19 08:56 Famotidine (Pepcid) 20 mg BID ORAL 12/30/18 09:00 01/29/19 08:59 01/07/19 17:00 Gabapentin (Neurontin) 100 mg BID ORAL 12/30/18 09:00 01/29/19 08:59 01/07/19 17:00 Losartan Potassium (Cozaar) 100 mg DAILY ORAL 12/30/18 09:00 01/29/19 08:59 01/07/19 08:56 Meclizine HCl (Antivert) 25 mg STAT PRN ORAL for dizziness 12/29/18 12:15 01/28/19 12:14 Metformin HCl (Glucophage) 500 mg THREE TIMES A DAY ORAL 12/30/18 09:00 01/29/19 08:59 01/07/19 17:00 Mirtazapine (Remeron) 7.5 mg QHS PRN ORAL Insomnia 12/30/18 21:00 01/29/19 20:59 Multivitamins (Multivitamins) 1 tab DAILY ORAL 12/30/18 09:00 01/29/19 08:59 01/07/19 08:56 Nateglinide (Starlix) 60 mg THREE TIMES A DAY ORAL 12/30/18 09:00 01/29/19 08:59 01/07/19 17:00 Ondansetron HCl (Zofran) 4 mg Q6H PRN IVP Nausea & Vomiting 12/29/18 18:15 01/28/19 18:14 Polyethylene Glycol (Miralax) 17 gm HSPRN PRN ORAL Constipation 12/29/18 18:15 01/28/19 18:14 Prednisone (predniSONE) 5 mg DAILY ORAL 12/30/18 09:00 01/29/19 08:59 01/07/19 08:56 Triamterene/HCTZ (Dyazide) 1 cap DAILY ORAL 12/30/18 09:00 01/29/19 08:59 01/07/19 08:56 Allergies: Coded Allergies: SHELLFISH DERIVED (Unverified Allergy, Unknown, 12/29/18) SULFA (SULFONAMIDE ANTIBIOTICS) (Verified Allergy, Unknown, 12/29/18) Uncoded Allergies: SHELLFISH (Allergy, Unknown, 12/29/18) Subjective 73 YO F admitted with frequent falls and weakness bilateral legs. Cover for Int Med-Dr Morales. Await SNF placement Objective Last Vital Signs Date Time Temp Pulse Resp B/P (MAP) Pulse Ox O2 Delivery O2 Flow Rate FiO2 01/07/19 15:54 98.3 102 19 130/67 (88) 97 12/31/18 21:00 Room Air Intake and Output 01/06/19 01/07/19 19:00 07:00 Intake Total 1220 ml 240 ml Balance 1220 ml 240 ml Intake Oral 1220 ml 240 ml # Voids 5 2 Objective PHYSICAL EXAMINATION: VITAL SIGNS: Temperature 97.6, respirations 20, pulse 80, blood pressure 137/76. GENERAL: The patient is a well-developed and well-nourished slightly obese female, in no apparent distress. HEENT: Eyes, pupils equal and responsive to light and accommodation. Extraocular movements are intact. NECK: Supple without lymphadenopathy. CHEST: Lungs are clear to auscultation bilaterally without wheezes or rales. CARDIOVASCULAR: Regular rhythm and rate. S1-S2 are normal without murmurs, rubs, or gallops. ABDOMEN: Soft, nontender, and nondistended. Positive bowel sounds. No evidence of hepatosplenomegaly. No rebound or guarding noted. EXTREMITIES: Negative for clubbing, cyanosis, or edema. RECTAL/GENITAL: Refused. NEUROLOGIC: Cranial nerves II through XII are grossly intact without focal deficits. Motor strength is 5/5 in the bilateral lower extremities and 5/5 in the bilateral upper extremities. Deep tendon reflexes are 2+ plantar. Assessment/Plan Assessment/Plan ASSESSMENT: This is a 73-year-old female. 1. Weakness in bilateral lower extremities. 2. Bilateral knee pain. 3. Frequent falls. 4. Herniated nucleus pulposus of the lumbar spine. 5. Hypertension. 6. Chronic obstructive pulmonary disease. 7. Polymyalgia rheumatica. 8. Fibromyalgia. 9. lumbar stenosis (L1-L2) TREATMENT: 1. Weakness of bilateral lower extremities/herniated nucleus pulposus of the lumbar spine. An MRI of the spine is pending. Herniated disc may be the cause of weakness in bilateral lower extremities. We will await results of the MRI. 2. Bilateral knee pain. The patient has a history of frequent falls. X-rays of bilateral knees is pending. 3. Diabetes type 2. A NovoLog sliding scale has been instituted. 4. Hypertension. Continue losartan as above. 5. Chronic obstructive pulmonary disease. Continue albuterol metered-dose inhaler as above. 6. Polymyalgia rheumatica. 7. Fibromyalgia. 8. Ortho consult-Dr Sales 9. Await [facility]-Koby Charles MD Jan 07, 2019 18:16
--- NOTE | 2019-01-07 19:29 | NUR ---
HAND-OFF: Report given to Eva TRAN LVN.
--- NOTE | 2019-01-07 19:30 | NUR ---
NURSE NOTES: RECEIVED PATIENT LYING IN BED, AWAKE, ALERT/ORIENTED X4, FAMILY AT BEDSIDE, DENIES EPISODES OF DIZZINESS. IV SITE INTACT, NO REDNESS/SWELLING NOTED. NO SIGNS AND SYMPTOMS OF ACUTE CARDIO RESPIRATORY DISTRESS/SHORTNESS OF BREATH, DENIES CHEST PAIN, NO PERIPHERAL EDEMA NOTED. NO COMPLAINTS OF GI DISCOMFORT. ASSISTED WITH COMFORT CARE. SIDE RAILS UP X3/BED IN LOWEST POSITION FOR SAFETY. ENCOURAGED PATIENT TO UTILIZE CALL LIGHT FOR ASSISTANCE, VERBALIZED UNDERSTANDING. NAD.
[2019-01-07 20:00] VITALS: BP 159/84
[2019-01-07] MEDS: Atorvastatin 20mg tab ORAL SCH (20:37)
--- NOTE | 2019-01-07 22:32 | NUR ---
NURSE NOTES: SLEEPING ON ROUNDS, NO SIGNS AND SYMPTOMS OF DISTRESS. Addendum: 01/07/19 at 2233 by TAVARES TRAN LVN CHARTED IN ERROR-
[2019-01-08] VITALS (7 sets, daily range): BP systolic 139–175; BP diastolic 68–80
[2019-01-08 05:58] LABS: BASOPHILS % (AUTO) 1.1 % (0.0-2.0); EOSINOPHILS % (AUTO) 0.9 % (0.0-3.0); HEMATOCRIT 41.4 % (37.0-47.0); HEMOGLOBIN 13.6 G/DL (12.0-16.0); LYMPHOCYTES % (AUTO) 27.3 % (20.0-45.0); MEAN CORPUSCULAR VOLUME 85 FL (80-99); MONOCYTES % (AUTO) 7.7 % (1.0-10.0); PLATELET COUNT 217 K/UL (150-450); RED BLOOD COUNT 4.86 M/UL (4.20-5.40); RED CELL DISTRIBUTION WIDTH 15.1 % (11.6-14.8); WHITE BLOOD COUNT 6.2 K/UL (4.8-10.8)
--- NOTE | 2019-01-08 06:03 | NUR ---
NURSE NOTES: RESTED WELL, NO SIGNIFICANT CHANGE OF CONDITION NOTED THROUGHOUT THE NIGHT. SAFETY MAINTAINED. NAD.,
--- NOTE | 2019-01-08 06:15 | NUR ---
NURSE NOTES: BLOOD GLUCOSE LEVEL MONITORED VIA GLUCOMETER WITH RESULT 105MG/DL, ASSESSED FOR SIGNS AND SYMPTOMS OF HYPOGLYCEMIA, NONE NOTED. DM MANAGED WITH ORAL HYPOGLYCEMICS. NAD.
[2019-01-08 06:25] LABS: ANION GAP 6 mmol/L (5-15); BLOOD UREA NITROGEN 18 mg/dL (7-18); CALCIUM 9.6 MG/DL (8.5-10.1); CARBON DIOXIDE 30 MMOL/L (21-32); CHLORIDE 98 MMOL/L (98-107); CREATININE 1.1 MG/DL (0.55-1.30); POTASSIUM 3.5 MMOL/L (3.5-5.1); SODIUM 134 MMOL/L (136-145)
[2019-01-08] MEDS: Nateglinide 60mg tab ORAL SCH ×3 (08:53→17:03)
[2019-01-08] MEDS: DULoxetine 30mg cap ORAL SCH (08:54)
[2019-01-08] MEDS: metFORMIN 500mg tab ORAL SCH ×3 (08:54→17:02)
[2019-01-08] MEDS: Aspirin Baby 81mg ORAL SCH (08:54)
[2019-01-08] MEDS: Triamterene/Hctz 37.5/25 cap ORAL SCH (08:55)
[2019-01-08] MEDS: Losartan 50mg tab ORAL SCH (08:55)
[2019-01-08] MEDS: dilTIAZem HCl CD 180mg cap ORAL SCH (08:55)
--- NOTE | 2019-01-08 09:38 | Pulmonology Progress Note ---
Assessment/Plan Assessment/Plan ASSESSMENT Moderate to severe central stenosis with weakness in BLE most likely due to large disc extrusion at L1-2 compressing the cauda equina nerve roots Herniated nucleus pulposus of the lumbar spine Multilevel foraminal stenosis Bilateral knee pain. Frequent falls Cerebrovascular disease with hx of CVA HTN COPD Polymyalgia rheumatica. Fibromyalgia Major depressive disorder Anxiety disorder PLAN OF CARE MS floor CT head with evidence of old infarcts no acute intracranial pathology Venous duplex bilateral lower extremity no acute DVT Chest x-ray no acute cardia pulmonary pathology borderline cardiomegaly Images of lumbar spine x-ray and MRI noted LS MRI revealed Suspected, large disc extrusion at L1-2 compressing the cauda equina nerve roots. Moderate to severe central stenosis. Status post L2-S1 posterior instrumented fusion. Status post laminectomy at L2- 3 and L4-5 L5-S1. Multilevel neural foraminal stenosis pain management - controlled PT Rx requires max assistance with walker , fall precautions O2 HHN prn, CXR stable BP management with ARB and Dyazide, and optimize further prn continue ASA, statin GI prophayxlsi bowel regimen psych meds as per psych recs consider neuro surgery eval, -per primary discretion discussed extensively with pt she had surgery done in 2017 patient was advised to follow up as outpatient with her spine surgeon, pt was advsied that she could request copy of her imaging from [facility] for review by her spine surgeon awaiting transfer to SNF improved, ambulated case discussed and evaluated by supervising physician case discussed and evaluated by supervising physician Subjective Allergies: Coded Allergies: SHELLFISH DERIVED (Unverified Allergy, Unknown, 12/29/18) SULFA (SULFONAMIDE ANTIBIOTICS) (Verified Allergy, Unknown, 12/29/18) Uncoded Allergies: SHELLFISH (Allergy, Unknown, 12/29/18) Subjective no chest pain, no SOB, working with PT, ambulated today by herself in hallway ( I observed) Objective Last 24 Hour Vital Signs Date Time Temp Pulse Resp B/P (MAP) Pulse Ox O2 Delivery O2 Flow Rate FiO2 01/08/19 09:02 108 155/79 (104) 01/08/19 08:55 155/79 01/08/19 08:55 108 155/79 01/08/19 08:00 98.2 98 18 175/80 (111) 96 01/08/19 04:00 97.5 92 18 141/79 (99) 96 01/08/19 00:00 97.8 96 18 144/72 (96) 98 01/07/19 21:07 98.3 01/07/19 20:00 97.8 106 18 159/84 (109) 98 01/07/19 15:54 98.3 102 19 130/67 (88) 97 01/07/19 12:00 97.0 105 18 128/72 (90) 93 Intake and Output 01/07/19 01/08/19 18:59 06:59 Intake Total 1200 ml 480 ml Balance 1200 ml 480 ml Intake Oral 480 ml Other 1200 ml # Voids 3 4 Objective General Appearance: no acute distress, other - A/A/O x 3 depressed AA female HEENT: normocephalic, atraumatic, anicteric, mucous membranes moist Respiratory/Chest: lungs clear, no respiratory distress, no accessory muscle use Cardiovascular: normal rate, regular rhythm, no JVD Extremities: no edema, pedal pulses normal Neurologic/Psychiatric: abnormal gait, alert, oriented x 3, responsive Musculoskeletal: normal muscle bulk Laboratory Tests 01/08/19 05:30: White Blood Count 6.2, Red Blood Count 4.86, Hemoglobin 13.6, Hematocrit 41.4, Mean Corpuscular Volume 85, Mean Corpuscular Hemoglobin 28.1, Mean Corpuscular Hemoglobin Concent 32.9, Red Cell Distribution Width 15.1H, Platelet Count 217, Mean Platelet Volume 7.6, Neutrophils (%) (Auto) 63.0, Lymphocytes (%) (Auto) 27.3, Monocytes (%) (Auto) 7.7, Eosinophils (%) (Auto) 0.9, Basophils (%) (Auto ) 1.1, Sodium Level 134L, Potassium Level 3.5, Chloride Level 98, Carbon Dioxide Level 30, Anion Gap 6, Blood Urea Nitrogen 18, Creatinine 1.1, Estimat Glomerular Filtration Rate , Glucose Level 91, Calcium Level 9.6 Current Medications Medications (Trade) Dose Ordered Sig/Stefanie Route PRN Reason Start Time Stop Time Status Last Admin Dose Admin Acetaminophen (Tylenol) 650 mg Q4H PRN ORAL fever and pain 01/06/19 09:45 01/28/19 18:14 01/07/19 20:37 Al Hydroxide/Mg Hydroxide (Mylanta II) 30 ml Q6H PRN ORAL dyspepsia 2/14/19 18:15 01/28/19 18:14 Aspirin (ASA) 81 mg DAILY ORAL 12/30/18 09:00 01/29/19 08:59 01/08/19 08:54 Atorvastatin Calcium (Lipitor) 40 mg BEDTIME ORAL 12/30/18 21:00 01/29/19 20:59 01/07/19 20:37 Clonidine HCl (Catapres Tab) 0.1 mg EVERY 6 HOURS PRN ORAL SBP>160 12/31/18 23:00 01/30/19 22:59 01/06/19 17:06 Dextrose (Dextrose 50%) 25 ml Q30M PRN IV Hypoglycemia 12/29/18 18:30 01/28/19 18:18 Dextrose (Dextrose 50%) 50 ml Q30M PRN IV hypoglycemia 12/29/18 18:30 01/28/19 18:29 Diltiazem HCl (Cardizem CD) 180 mg DAILY ORAL 12/30/18 09:00 01/29/19 08:59 01/08/19 08:55 Duloxetine HCl (Cymbalta) 60 mg DAILY ORAL 12/30/18 09:00 01/29/19 08:59 01/08/19 08:54 Famotidine (Pepcid) 20 mg BID ORAL 12/30/18 09:00 01/29/19 08:59 01/08/19 08:54 Gabapentin (Neurontin) 100 mg BID ORAL 12/30/18 09:00 01/29/19 08:59 01/08/19 08:54 Losartan Potassium (Cozaar) 100 mg DAILY ORAL 12/30/18 09:00 01/29/19 08:59 01/08/19 08:55 Meclizine HCl (Antivert) 25 mg STAT PRN ORAL for dizziness 12/29/18 12:15 01/28/19 12:14 Metformin HCl (Glucophage) 500 mg THREE TIMES A DAY ORAL 12/30/18 09:00 01/29/19 08:59 01/08/19 08:54 Mirtazapine (Remeron) 7.5 mg QHS PRN ORAL Insomnia 12/30/18 21:00 01/29/19 20:59 Multivitamins (Multivitamins) 1 tab DAILY ORAL 12/30/18 09:00 01/29/19 08:59 01/08/19 08:54 Nateglinide (Starlix) 60 mg THREE TIMES A DAY ORAL 12/30/18 09:00 01/29/19 08:59 01/08/19 08:53 Ondansetron HCl (Zofran) 4 mg Q6H PRN IVP Nausea & Vomiting 12/29/18 18:15 01/28/19 18:14 Polyethylene Glycol (Miralax) 17 gm HSPRN PRN ORAL Constipation 12/29/18 18:15 01/28/19 18:14 Prednisone (predniSONE) 5 mg DAILY ORAL 12/30/18 09:00 01/29/19 08:59 01/08/19 08:54 Triamterene/HCTZ (Dyazide) 1 cap DAILY ORAL 12/30/18 09:00 01/29/19 08:59 01/08/19 08:55 Elzbieta López NP Jan 08, 2019 09:38
[2019-01-08] MEDS: Morphine Sulfate 2mg/ml Inj(IV/IM USE ONLY) IVP PRN ×2 (10:54→17:03)
--- NOTE | 2019-01-08 16:36 | NUR ---
CASE MANAGEMENT: REVIEW SI: S/P FALL . COPD T 97.8 HR 108 RR 18 BP 175/80 SAT 175/80 SAT 96% ROOM AIR NA 134 IS: ASA PO QD CARDIZEM PO QD COZAAR PO QD MORPHINE IV Q4HR PRN MED/SURG STATUS DCP: PATIENT IS FROM HOME
--- NOTE | 2019-01-08 18:31 | Internal Med Progress Note ---
Subjective Date of Service: Jan 08, 2019 Physician Name Koby Veloz Attending Physician Eyad Morales MD Current Medications Medications (Trade) Dose Ordered Sig/Stefanie Route PRN Reason Start Time Stop Time Status Last Admin Dose Admin Acetaminophen (Tylenol) 650 mg Q4H PRN ORAL Mild Pain/Temp > 100.5 01/08/19 10:30 01/28/19 18:14 Al Hydroxide/Mg Hydroxide (Mylanta II) 30 ml Q6H PRN ORAL dyspepsia 12/29/18 18:15 01/28/19 18:14 Aspirin (ASA) 81 mg DAILY ORAL 12/30/18 09:00 01/29/19 08:59 01/08/19 08:54 Atorvastatin Calcium (Lipitor) 40 mg BEDTIME ORAL 12/30/18 21:00 01/29/19 20:59 01/07/19 20:37 Clonidine HCl (Catapres Tab) 0.1 mg EVERY 6 HOURS PRN ORAL SBP>160 12/31/18 23:00 01/30/19 22:59 01/06/19 17:06 Dextrose (Dextrose 50%) 25 ml Q30M PRN IV Hypoglycemia 12/29/18 18:30 01/28/19 18:18 Dextrose (Dextrose 50%) 50 ml Q30M PRN IV hypoglycemia 12/29/18 18:30 01/28/19 18:29 Diltiazem HCl (Cardizem CD) 180 mg DAILY ORAL 12/30/18 09:00 01/29/19 08:59 01/08/19 08:55 Duloxetine HCl (Cymbalta) 60 mg DAILY ORAL 12/30/18 09:00 01/29/19 08:59 01/08/19 08:54 Famotidine (Pepcid) 20 mg BID ORAL 12/30/18 09:00 01/29/19 08:59 01/08/19 17:03 Gabapentin (Neurontin) 100 mg BID ORAL 12/30/18 09:00 01/29/19 08:59 01/08/19 17:03 Losartan Potassium (Cozaar) 100 mg DAILY ORAL 12/30/18 09:00 01/29/19 08:59 01/08/19 08:55 Meclizine HCl (Antivert) 25 mg STAT PRN ORAL for dizziness 12/29/18 12:15 01/28/19 12:14 Metformin HCl (Glucophage) 500 mg THREE TIMES A DAY ORAL 12/30/18 09:00 01/29/19 08:59 01/08/19 17:02 Mirtazapine (Remeron) 7.5 mg QHS PRN ORAL Insomnia 12/30/18 21:00 01/29/19 20:59 Morphine Sulfate (Morphine Sulfate) 1 mg Q4H PRN IVP PAIN 4-10 01/08/19 10:15 01/15/19 10:14 01/08/19 17:03 Multivitamins (Multivitamins) 1 tab DAILY ORAL 12/30/18 09:00 01/29/19 08:59 01/08/19 08:54 Nateglinide (Starlix) 60 mg THREE TIMES A DAY ORAL 12/30/18 09:00 01/29/19 08:59 01/08/19 17:03 Ondansetron HCl (Zofran) 4 mg Q6H PRN IVP Nausea & Vomiting 12/29/18 18:15 01/28/19 18:14 Polyethylene Glycol (Miralax) 17 gm HSPRN PRN ORAL Constipation 12/29/18 18:15 01/28/19 18:14 Prednisone (predniSONE) 5 mg DAILY ORAL 12/30/18 09:00 01/29/19 08:59 01/08/19 08:54 Triamterene/HCTZ (Dyazide) 1 cap DAILY ORAL 12/30/18 09:00 01/29/19 08:59 01/08/19 08:55 Allergies: Coded Allergies: SHELLFISH DERIVED (Unverified Allergy, Unknown, 12/29/18) SULFA (SULFONAMIDE ANTIBIOTICS) (Verified Allergy, Unknown, 12/29/18) Uncoded Allergies: SHELLFISH (Allergy, Unknown, 12/29/18) ROS Limited/Unobtainable: No Constitutional: Reports: no symptoms HEENT: Reports: no symptoms Cardiovascular: Reports: no symptoms Respiratory: Reports: no symptoms Gastrointestinal/Abdominal: Reports: no symptoms Genitourinary: Reports: no symptoms Neurologic/Psychiatric: Reports: no symptoms Subjective 73 YO F admitted with frequent falls and weakness bilateral legs. Cover for Int Justin-Dr Morales. Await SNF placement Objective Last Vital Signs Date Time Temp Pulse Resp B/P (MAP) Pulse Ox O2 Delivery O2 Flow Rate FiO2 01/08/19 16:00 97.9 91 18 158/71 (100) 97 12/31/18 21:00 Room Air Laboratory Tests Test 01/08/19 05:30 White Blood Count 6.2 K/UL (4.8-10.8) Red Blood Count 4.86 M/UL (4.20-5.40) Hemoglobin 13.6 G/DL (12.0-16.0) Hematocrit 41.4 % (37.0-47.0) Mean Corpuscular Volume 85 FL (80-99) Mean Corpuscular Hemoglobin 28.1 PG (27.0-31.0) Mean Corpuscular Hemoglobin Concent 32.9 G/DL (32.0-36.0) Red Cell Distribution Width 15.1 % (11.6-14.8) H Platelet Count 217 K/UL (150-450) Mean Platelet Volume 7.6 FL (6.5-10.1) Neutrophils (%) (Auto) 63.0 % (45.0-75.0) Lymphocytes (%) (Auto) 27.3 % (20.0-45.0) Monocytes (%) (Auto) 7.7 % (1.0-10.0) Eosinophils (%) (Auto) 0.9 % (0.0-3.0) Basophils (%) (Auto) 1.1 % (0.0-2.0) Sodium Level 134 MMOL/L (136-145) L Potassium Level 3.5 MMOL/L (3.5-5.1) Chloride Level 98 MMOL/L (98-107) Carbon Dioxide Level 30 MMOL/L (21-32) Anion Gap 6 mmol/L (5-15) Blood Urea Nitrogen 18 mg/dL (7-18) Creatinine 1.1 MG/DL (0.55-1.30) Estimat Glomerular Filtration Rate mL/min (>60) Glucose Level 91 MG/DL (74-106) Calcium Level 9.6 MG/DL (8.5-10.1) Intake and Output 01/07/19 01/08/19 19:00 07:00 Intake Total 1200 ml 480 ml Balance 1200 ml 480 ml Intake Oral 480 ml Other 1200 ml # Voids 3 4 Objective PHYSICAL EXAMINATION: VITAL SIGNS: Temperature 97.6, respirations 20, pulse 80, blood pressure 137/76. GENERAL: The patient is a well-developed and well-nourished slightly obese female, in no apparent distress. HEENT: Eyes, pupils equal and responsive to light and accommodation. Extraocular movements are intact. NECK: Supple without lymphadenopathy. CHEST: Lungs are clear to auscultation bilaterally without wheezes or rales. CARDIOVASCULAR: Regular rhythm and rate. S1-S2 are normal without murmurs, rubs, or gallops. ABDOMEN: Soft, nontender, and nondistended. Positive bowel sounds. No evidence of hepatosplenomegaly. No rebound or guarding noted. EXTREMITIES: Negative for clubbing, cyanosis, or edema. RECTAL/GENITAL: Refused. NEUROLOGIC: Cranial nerves II through XII are grossly intact without focal deficits. Motor strength is 5/5 in the bilateral lower extremities and 5/5 in the bilateral upper extremities. Deep tendon reflexes are 2+ plantar. Assessment/Plan Assessment/Plan ASSESSMENT: This is a 73-year-old female. 1. Weakness in bilateral lower extremities. 2. Bilateral knee pain. 3. Frequent falls. 4. Herniated nucleus pulposus of the lumbar spine. 5. Hypertension. 6. Chronic obstructive pulmonary disease. 7. Polymyalgia rheumatica. 8. Fibromyalgia. 9. lumbar stenosis (L1-L2) TREATMENT: 1. Weakness of bilateral lower extremities/herniated nucleus pulposus of the lumbar spine. An MRI of the spine is pending. Herniated disc may be the cause of weakness in bilateral lower extremities. We will await results of the MRI. 2. Bilateral knee pain. The patient has a history of frequent falls. X-rays of bilateral knees is pending. 3. Diabetes type 2. A NovoLog sliding scale has been instituted. 4. Hypertension. Continue losartan as above. 5. Chronic obstructive pulmonary disease. Continue albuterol metered-dose inhaler as above. 6. Polymyalgia rheumatica. 7. Fibromyalgia. 8. Ortho consult-Dr Sales 9. Await [facility]-Koby Charles MD Jan 08, 2019 18:31
--- NOTE | 2019-01-08 19:22 | NUR ---
HAND-OFF: Report given to Eva TRAN LVN.
[2019-01-08] MEDS: Atorvastatin 20mg tab ORAL SCH (20:50)
--- NOTE | 2019-01-08 22:53 | NUR ---
NURSE NOTES: PATIENT HAS PERSONAL SURGE PROTECTOR AT BEDSIDE WITH CELL PHONE AUTO DAMAGE ESTIMATOR AND COMPUTER IN USE, ENGINEER AD , NOTIFIED AND GAVE OK TO USE, CHARGE NURSE MADE AWARE.
[2019-01-09] VITALS: BP 169/78
[2019-01-09 04:00] VITALS: BP 154/85
--- NOTE | 2019-01-09 06:37 | NUR ---
NURSE NOTES: BLOOD GLUCOSE LEVEL MONITORED VIA GLUCOMETER WITH RESULT 96MG/DL, ASSESSED FOR SIGNS AND SYMPTOMS OF HYPOGLYCEMIA, NONE NOTED. NAD.
--- NOTE | 2019-01-09 07:06 | NUR ---
HAND-OFF: Report given to EDSON RYAN.
[2019-01-09 08:00] VITALS: BP 122/65
[2019-01-09 08:04] LABS: BASOPHILS % (AUTO) 0.8 % (0.0-2.0); EOSINOPHILS % (AUTO) 0.8 % (0.0-3.0); HEMATOCRIT 42.2 % (37.0-47.0); HEMOGLOBIN 13.5 G/DL (12.0-16.0); LYMPHOCYTES % (AUTO) 29.1 % (20.0-45.0); MEAN CORPUSCULAR VOLUME 87 FL (80-99); MONOCYTES % (AUTO) 7.5 % (1.0-10.0); NEUTROPHILS % (AUTO) 61.8 % (45.0-75.0); PLATELET COUNT 208 K/UL (150-450); RED BLOOD COUNT 4.84 M/UL (4.20-5.40); WHITE BLOOD COUNT 7.4 K/UL (4.8-10.8)
[2019-01-09 08:21] LABS: ANION GAP 11 mmol/L (5-15); BLOOD UREA NITROGEN 17 mg/dL (7-18); CALCIUM 9.8 MG/DL (8.5-10.1); CARBON DIOXIDE 27 MMOL/L (21-32); CHLORIDE 97 MMOL/L (98-107); CREATININE 0.9 MG/DL (0.55-1.30); POTASSIUM 3.7 MMOL/L (3.5-5.1); SODIUM 135 MMOL/L (136-145)
[2019-01-09] MEDS: Losartan 50mg tab ORAL SCH (08:46)
[2019-01-09] MEDS: Nateglinide 60mg tab ORAL SCH ×3 (08:46→17:22)
[2019-01-09] MEDS: metFORMIN 500mg tab ORAL SCH ×3 (08:46→17:22)
[2019-01-09] MEDS: dilTIAZem HCl CD 180mg cap ORAL SCH (08:46)
[2019-01-09] MEDS: Triamterene/Hctz 37.5/25 cap ORAL SCH (08:47)
[2019-01-09] MEDS: DULoxetine 30mg cap ORAL SCH (08:47)
[2019-01-09] MEDS: Aspirin Baby 81mg ORAL SCH (08:47)
[2019-01-09 12:00] VITALS: BP 142/78
[2019-01-09] MEDS: Morphine Sulfate 2mg/ml Inj(IV/IM USE ONLY) IVP PRN (13:11)
--- NOTE | 2019-01-09 14:25 | Pulmonology Progress Note ---
Assessment/Plan Problems: (1) COPD (chronic obstructive pulmonary disease) (2) Fall (3) Polymyalgia rheumatica (4) Spinal stenosis (5) History of hypertension (6) Diabetes mellitus Assessment/Plan no new complains doing better no new complains all CR's reviewed sliding scale diabetic diet monitor BP wants to go to custodial Subjective Allergies: Coded Allergies: SHELLFISH DERIVED (Unverified Allergy, Unknown, 12/29/18) SULFA (SULFONAMIDE ANTIBIOTICS) (Verified Allergy, Unknown, 12/29/18) Uncoded Allergies: SHELLFISH (Allergy, Unknown, 12/29/18) Objective Last 24 Hour Vital Signs Date Time Temp Pulse Resp B/P (MAP) Pulse Ox O2 Delivery O2 Flow Rate FiO2 01/09/19 12:00 98.1 100 18 142/78 (99) 97 01/09/19 08:46 122/65 01/09/19 08:46 101 122/65 01/09/19 08:00 97.7 104 18 122/65 (84) 99 01/09/19 04:00 97.8 91 18 154/85 (108) 98 01/09/19 00:00 97.8 96 20 169/78 (108) 96 01/08/19 20:00 97.5 99 18 139/76 (97) 96 01/08/19 16:00 97.9 91 18 158/71 (100) 97 Intake and Output 01/08/19 01/09/19 18:59 06:59 Intake Total 1360 ml Output Total 1000 ml Balance 360 ml Intake Oral 360 ml Other 1000 ml Output Urine Total 1000 ml Objective General Appearance: WD/WN Lines, tubes and drains: peripheral HEENT: normocephalic, atraumatic Neck: non-tender Respiratory/Chest: chest wall non-tender, normal breath sounds Breasts: no masses Cardiovascular/Chest: normal peripheral pulses Genitourinary/Rectal: normal genital exam Extremities: normal range of motion Laboratory Tests 01/09/19 05:45: White Blood Count 7.4, Red Blood Count 4.84, Hemoglobin 13.5, Hematocrit 42.2, Mean Corpuscular Volume 87, Mean Corpuscular Hemoglobin 28.0, Mean Corpuscular Hemoglobin Concent 32.1, Red Cell Distribution Width 15.0H, Platelet Count 208, Mean Platelet Volume 7.3, Neutrophils (%) (Auto) 61.8, Lymphocytes (%) (Auto) 29.1, Monocytes (%) (Auto) 7.5, Eosinophils (%) (Auto) 0.8, Basophils (%) (Auto ) 0.8, Sodium Level 135L, Potassium Level 3.7, Chloride Level 97L, Carbon Dioxide Level 27, Anion Gap 11, Blood Urea Nitrogen 17, Creatinine 0.9, Estimat Glomerular Filtration Rate , Glucose Level 89, Calcium Level 9.8 Current Medications Medications (Trade) Dose Ordered Sig/Stefanie Route PRN Reason Start Time Stop Time Status Last Admin Dose Admin Acetaminophen (Tylenol) 650 mg Q4H PRN ORAL Mild Pain/Temp > 100.5 01/08/19 10:30 01/28/19 18:14 Al Hydroxide/Mg Hydroxide (Mylanta II) 30 ml Q6H PRN ORAL dyspepsia 12/29/18 18:15 01/28/19 18:14 Aspirin (ASA) 81 mg DAILY ORAL 12/30/18 09:00 01/29/19 08:59 01/09/19 08:47 Atorvastatin Calcium (Lipitor) 40 mg BEDTIME ORAL 12/30/18 21:00 01/29/19 20:59 01/08/19 20:50 Clonidine HCl (Catapres Tab) 0.1 mg EVERY 6 HOURS PRN ORAL SBP>160 12/31/18 23:00 01/30/19 22:59 01/06/19 17:06 Dextrose (Dextrose 50%) 25 ml Q30M PRN IV Hypoglycemia 12/29/18 18:30 01/28/19 18:18 Dextrose (Dextrose 50%) 50 ml Q30M PRN IV hypoglycemia 12/29/18 18:30 01/28/19 18:29 Diltiazem HCl (Cardizem CD) 180 mg DAILY ORAL 12/30/18 09:00 01/29/19 08:59 01/09/19 08:46 Duloxetine HCl (Cymbalta) 60 mg DAILY ORAL 12/30/18 09:00 01/29/19 08:59 01/09/19 08:47 Famotidine (Pepcid) 20 mg BID ORAL 12/30/18 09:00 01/29/19 08:59 01/09/19 08:46 Gabapentin (Neurontin) 100 mg BID ORAL 12/30/18 09:00 01/29/19 08:59 01/09/19 08:49 Losartan Potassium (Cozaar) 100 mg DAILY ORAL 12/30/18 09:00 01/29/19 08:59 01/09/19 08:46 Meclizine HCl (Antivert) 25 mg STAT PRN ORAL for dizziness 12/29/18 12:15 01/28/19 12:14 Metformin HCl (Glucophage) 500 mg THREE TIMES A DAY ORAL 12/30/18 09:00 01/29/19 08:59 01/09/19 12:14 Mirtazapine (Remeron) 7.5 mg QHS PRN ORAL Insomnia 12/30/18 21:00 01/29/19 20:59 Morphine Sulfate (Morphine Sulfate) 1 mg Q4H PRN IVP PAIN 4-10 01/08/19 10:15 01/15/19 10:14 01/09/19 13:11 Multivitamins (Multivitamins) 1 tab DAILY ORAL 12/30/18 09:00 01/29/19 08:59 01/09/19 08:47 Nateglinide (Starlix) 60 mg THREE TIMES A DAY ORAL 12/30/18 09:00 01/29/19 08:59 01/09/19 12:14 Ondansetron HCl (Zofran) 4 mg Q6H PRN IVP Nausea & Vomiting 12/29/18 18:15 01/28/19 18:14 Polyethylene Glycol (Miralax) 17 gm HSPRN PRN ORAL Constipation 12/29/18 18:15 01/28/19 18:14 Prednisone (predniSONE) 5 mg DAILY ORAL 12/30/18 09:00 01/29/19 08:59 01/09/19 08:46 Triamterene/HCTZ (Dyazide) 1 cap DAILY ORAL 12/30/18 09:00 01/29/19 08:59 01/09/19 08:47 Demetria Veloz MD Jan 09, 2019 14:25
--- NOTE | 2019-01-09 15:32 | NUR ---
HOLE DIGGER NOTES PT ACCEPTED TO [facility]. PT TO GO TO ROOM [address] [facility] TO TRANSPORT PT WITH A ETA OF 1730. PT IN AGREEMENT WITH DC AT THIS TIME. AUTHORIZATION TO ADMIT GIVEN BY [facility]RI[facility] FROM [facility]. AUTH #[id number]. ADRIAN [phone]
[2019-01-09 16:00] VITALS: BP 142/72
--- NOTE | 2019-01-09 17:22 | NUR ---
PER DIEM NOTES SPOKE WITH PATIENT MADE AWARE OF ORDER FOR NEURO CONSULT. PT STATED THE DOCTOR SAID I MIGHT NEED SURGERY. I HAVE SPOKEN TO MY DOCTOR AT [facility], DR FLORES AND HE WILL DO MY SURGERY, I DON'T WANT SURGERY HERE AT [place]. MADE AWARE.
[2019-01-09] MEDS ORDERED: ACETAMINOPHEN325 M1 ORAL (17:44)
[2019-01-09] MEDS ORDERED: CATAPRES0.1 MG ORAL (17:45)
[2019-01-09] MEDS ORDERED: MIRTAZAPINE15 MG ORAL (17:46)
[2019-01-09] MEDS ORDERED: ASPIR 8181 MG ORAL (17:46)
--- NOTE | 2019-01-09 18:30 | NUR ---
NURSE NOTES: All discharge report given to the nurse hallie and verbalized understanding. Await for ambulance to be picked up
--- NOTE | 2019-01-09 19:23 | Internal Med Progress Note ---
Subjective Date of Service: Jan 09, 2019 Physician Name Koby Veloz Attending Physician Eyad Morales MD Current Medications Medications (Trade) Dose Ordered Sig/Stefanie Route PRN Reason Start Time Stop Time Status Last Admin Dose Admin Acetaminophen (Tylenol) 650 mg Q4H PRN ORAL Mild Pain/Temp > 100.5 01/08/19 10:30 01/28/19 18:14 Al Hydroxide/Mg Hydroxide (Mylanta II) 30 ml Q6H PRN ORAL dyspepsia 12/29/18 18:15 01/28/19 18:14 Aspirin (ASA) 81 mg DAILY ORAL 12/30/18 09:00 01/29/19 08:59 01/09/19 08:47 Atorvastatin Calcium (Lipitor) 40 mg BEDTIME ORAL 12/30/18 21:00 01/29/19 20:59 01/08/19 20:50 Clonidine HCl (Catapres Tab) 0.1 mg EVERY 6 HOURS PRN ORAL SBP>160 12/31/18 23:00 01/30/19 22:59 01/06/19 17:06 Dextrose (Dextrose 50%) 25 ml Q30M PRN IV Hypoglycemia 12/29/18 18:30 01/28/19 18:18 Dextrose (Dextrose 50%) 50 ml Q30M PRN IV hypoglycemia 12/29/18 18:30 01/28/19 18:29 Diltiazem HCl (Cardizem CD) 180 mg DAILY ORAL 12/30/18 09:00 01/29/19 08:59 01/09/19 08:46 Duloxetine HCl (Cymbalta) 60 mg DAILY ORAL 12/30/18 09:00 01/29/19 08:59 01/09/19 08:47 Famotidine (Pepcid) 20 mg BID ORAL 12/30/18 09:00 01/29/19 08:59 01/09/19 17:22 Gabapentin (Neurontin) 100 mg BID ORAL 12/30/18 09:00 01/29/19 08:59 01/09/19 17:22 Losartan Potassium (Cozaar) 100 mg DAILY ORAL 12/30/18 09:00 01/29/19 08:59 01/09/19 08:46 Meclizine HCl (Antivert) 25 mg STAT PRN ORAL for dizziness 12/29/18 12:15 01/28/19 12:14 Metformin HCl (Glucophage) 500 mg THREE TIMES A DAY ORAL 12/30/18 09:00 01/29/19 08:59 01/09/19 17:22 Mirtazapine (Remeron) 7.5 mg QHS PRN ORAL Insomnia 12/30/18 21:00 01/29/19 20:59 Morphine Sulfate (Morphine Sulfate) 1 mg Q4H PRN IVP PAIN 4-10 01/08/19 10:15 01/15/19 10:14 01/09/19 13:11 Multivitamins (Multivitamins) 1 tab DAILY ORAL 12/30/18 09:00 01/29/19 08:59 01/09/19 08:47 Nateglinide (Starlix) 60 mg THREE TIMES A DAY ORAL 12/30/18 09:00 01/29/19 08:59 01/09/19 17:22 Ondansetron HCl (Zofran) 4 mg Q6H PRN IVP Nausea & Vomiting 12/29/18 18:15 01/28/19 18:14 Polyethylene Glycol (Miralax) 17 gm HSPRN PRN ORAL Constipation 12/29/18 18:15 01/28/19 18:14 Prednisone (predniSONE) 5 mg DAILY ORAL 12/30/18 09:00 01/29/19 08:59 01/09/19 08:46 Triamterene/HCTZ (Dyazide) 1 cap DAILY ORAL 12/30/18 09:00 01/29/19 08:59 01/09/19 08:47 Allergies: Coded Allergies: SHELLFISH DERIVED (Unverified Allergy, Unknown, 12/29/18) SULFA (SULFONAMIDE ANTIBIOTICS) (Verified Allergy, Unknown, 12/29/18) Uncoded Allergies: SHELLFISH (Allergy, Unknown, 12/29/18) ROS Limited/Unobtainable: No Constitutional: Reports: no symptoms HEENT: Reports: no symptoms Cardiovascular: Reports: no symptoms Respiratory: Reports: no symptoms Gastrointestinal/Abdominal: Reports: no symptoms Genitourinary: Reports: no symptoms Neurologic/Psychiatric: Reports: no symptoms Subjective 73 YO F admitted with frequent falls and weakness bilateral legs. Cover for Int Justin-Dr Morales. Await SNF placement Objective Last Vital Signs Date Time Temp Pulse Resp B/P (MAP) Pulse Ox O2 Delivery O2 Flow Rate FiO2 01/09/19 16:00 98.7 100 18 142/72 (95) 97 12/31/18 21:00 Room Air Laboratory Tests Test 01/09/19 05:45 White Blood Count 7.4 K/UL (4.8-10.8) Red Blood Count 4.84 M/UL (4.20-5.40) Hemoglobin 13.5 G/DL (12.0-16.0) Hematocrit 42.2 % (37.0-47.0) Mean Corpuscular Volume 87 FL (80-99) Mean Corpuscular Hemoglobin 28.0 PG (27.0-31.0) Mean Corpuscular Hemoglobin Concent 32.1 G/DL (32.0-36.0) Red Cell Distribution Width 15.0 % (11.6-14.8) H Platelet Count 208 K/UL (150-450) Mean Platelet Volume 7.3 FL (6.5-10.1) Neutrophils (%) (Auto) 61.8 % (45.0-75.0) Lymphocytes (%) (Auto) 29.1 % (20.0-45.0) Monocytes (%) (Auto) 7.5 % (1.0-10.0) Eosinophils (%) (Auto) 0.8 % (0.0-3.0) Basophils (%) (Auto) 0.8 % (0.0-2.0) Sodium Level 135 MMOL/L (136-145) L Potassium Level 3.7 MMOL/L (3.5-5.1) Chloride Level 97 MMOL/L (98-107) L Carbon Dioxide Level 27 MMOL/L (21-32) Anion Gap 11 mmol/L (5-15) Blood Urea Nitrogen 17 mg/dL (7-18) Creatinine 0.9 MG/DL (0.55-1.30) Estimat Glomerular Filtration Rate mL/min (>60) Glucose Level 89 MG/DL (74-106) Calcium Level 9.8 MG/DL (8.5-10.1) Intake and Output 01/08/19 01/09/19 18:59 06:59 Intake Total 1360 ml Output Total 1000 ml Balance 360 ml Intake Oral 360 ml Other 1000 ml Output Urine Total 1000 ml Objective PHYSICAL EXAMINATION: VITAL SIGNS: Temperature 97.6, respirations 20, pulse 80, blood pressure 137/76. GENERAL: The patient is a well-developed and well-nourished slightly obese female, in no apparent distress. HEENT: Eyes, pupils equal and responsive to light and accommodation. Extraocular movements are intact. NECK: Supple without lymphadenopathy. CHEST: Lungs are clear to auscultation bilaterally without wheezes or rales. CARDIOVASCULAR: Regular rhythm and rate. S1-S2 are normal without murmurs, rubs, or gallops. ABDOMEN: Soft, nontender, and nondistended. Positive bowel sounds. No evidence of hepatosplenomegaly. No rebound or guarding noted. EXTREMITIES: Negative for clubbing, cyanosis, or edema. RECTAL/GENITAL: Refused. NEUROLOGIC: Cranial nerves II through XII are grossly intact without focal deficits. Motor strength is 5/5 in the bilateral lower extremities and 5/5 in the bilateral upper extremities. Deep tendon reflexes are 2+ plantar. Assessment/Plan Assessment/Plan ASSESSMENT: This is a 73-year-old female. 1. Weakness in bilateral lower extremities. 2. Bilateral knee pain. 3. Frequent falls. 4. Herniated nucleus pulposus of the lumbar spine. 5. Hypertension. 6. Chronic obstructive pulmonary disease. 7. Polymyalgia rheumatica. 8. Fibromyalgia. 9. lumbar stenosis (L1-L2) TREATMENT: 1. Weakness of bilateral lower extremities/herniated nucleus pulposus of the lumbar spine. An MRI of the spine is pending. Herniated disc may be the cause of weakness in bilateral lower extremities. We will await results of the MRI. 2. Bilateral knee pain. The patient has a history of frequent falls. X-rays of bilateral knees is pending. 3. Diabetes type 2. A NovoLog sliding scale has been instituted. 4. Hypertension. Continue losartan as above. 5. Chronic obstructive pulmonary disease. Continue albuterol metered-dose inhaler as above. 6. Polymyalgia rheumatica. 7. Fibromyalgia. 8. Ortho consult-Dr Sales 9. Discharge to [facility] today Koby Veloz MD Jan 09, 2019 19:23
--- NOTE | 2019-01-09 19:28 | NUR ---
HAND-OFF: Report given to EDSON Martin.
--- NOTE | 2019-01-10 03:00 | Consultation ---
DATE OF CONSULTATION: 01/09/2019 CONSULTING PHYSICIAN: Real Sales M.D. REFERRING PHYSICIANS: Eyad Morales M.D. and Koby Veloz M.D. CHIEF COMPLAINT: Low back pain. HISTORY OF PRESENT ILLNESS: The patient is a 73-year-old female with complicated medical history. She was admitted for multiple medical issues. Orthopedic consultation is obtained regarding the low back. PAST MEDICAL HISTORY: Anxiety disorder, CVA, acute encephalopathy, depression, anxiety, and obesity. MEDICATIONS: Medications reviewed in the chart. ALLERGIES: None. SOCIAL HISTORY: The patient does not smoke or drink. She works in the [employer] industry. FAMILY HISTORY: Noncontributory. PHYSICAL EXAMINATION: GENERAL: The patient is resting comfortably in exam bed. VITAL SIGNS: Afebrile. Stable vital signs. The patient is morbidly obese. She has muscles. Sensation in the lower extremity intact to light touch. DIAGNOSTIC DATA: lumbar spine available. ASSESSMENT: 1. Toxic metabolic encephalopathy. 2. Hypertension. 3. Stroke. 4. Dehydration. 5. Morbid obesity. 6. Chronic renal insufficiency. DISCUSSION: At this point, I do not think there is much that needs to be done from my point of view. She is better from a clinical point of view. She does most likely have some issues that relates to the lumbar spine. When she is a little bit more medically stable, further workup including x-rays as well as possible MRI of lumbar spine may be reasonable. However, given recent medical issues, I do not think she is a candidate for any type of treatment, particularly any epidural injections or facet injections. At this point, she will follow up as an outpatient for further care and recommendation. Real Sales M.D. DR: LEEANN JOB#: [id number] CC:
--- NOTE | 2019-01-10 15:22 | Discharge Summary ---
Discharge Summary Discharge Summary _ DATE OF ADMISSION: 12/29/2018 DATE OF DISCHARGE: DISCHARGED BY: Dr. Morales REASON FOR ADMISSION: 73 years old female with past medical history of COPD, diabetes mellitus, hypertension, polymyalgia rheumatica, spinal stenosis, status post extensive lumbar surgery, chronic back pain, presented with multiply recurrent falls over the past week, probably 6 or 7. Patient reported bilateral knee pain. Upon evaluation in emergency room vital signs were stable. Upon physical examination patient did not demonstrate any focal neuro deficit , no signs of major injury. CT of the head revealed no acute intracranial pathology, but showed evidence of old infarcts and chronic age-related changes. Chest x-ray revealed borderline cardiomegaly , no acute cardiopulmonary pathology. Patient was admitted for further management. CONSULTANTS: pulmonary Dr. Veloz orthopedic surgery Dr. Sales psychiatrist [facility]: Patient admitted to medical surgical floor. Patient initially provided with intravenous hydration. DVT prophylaxis provided. Lumbar spine x-ray revealed moderate degenerative disease of the lumbar spine with multilevel instrumented posterior fusion and laminectomy. X-ray of the left knee reveal no evidence of acute fracture or dislocation. No suprapatellar effusion. Minimal early degenerative changes were seen. X-ray of the right knee was negative. MRI of the lumbar spine demonstrated suspected large disc extrusion at L1-L2 , compressing the cauda equina nerve roots. Moderate to severe central stenosis. Status post L2- S1 posterior instrumented fusion. Status post laminectomy at L2-3 and L4-5, L5-S1. Multilevel neural foraminal stenosis. Pain management was addressed, and pain was controlled. Patient was working with physical therapist. Fall precautions were maintained. Patient initially required maximum assistance , but then was able to walk alone under supervision. Supplemental oxygen provided as needed to keep pulse oximetry above 92%. Pulmonary toilet was on standby. Respiratory status remained stable. Blood pressure was managed with angiotensin receptor boni and Dyazide. Antiplatelet therapy with aspirin and statin were continued. Patient had surgery done in 2017. Patient was advised to follow-up with spine surgeon as outpatient for further management. Orthopedic surgeon seen and evaluated patient. Per ortho surgeon, patient was not a candidate for any intervention such as epidural injection or facet injection. Patient can follow-up as outpatient for further care and recommendation. GI prophylaxis provided. Bowel regimen instituted. Renal parameters and electrolytes were closely monitored, electrolytes corrected as needed, and nephrotoxins were avoided. BUN from initial 28 down to 17. Creatinine remained stable. Psychiatrist followed. Psychiatric medication regimen for major depressive disorder and anxiety disorder was optimized as per psychiatrist. Patient stabilized and was ready for transfer to half-way facility for further rehabilitation. FINAL DIAGNOSES: Moderate to severe central stenosis with weakness in bilateral lower extremity Suspected large disc extrusion at L1-L2 compressing the cauda equina nerve roots Multilevel foraminal stenosis Bilateral knee pain Frequent falls Cerebrovascular disease with history of CVA Toxic metabolic encephalopathy-resolved Hypertension COPD Morbid obesity Polymyalgia rheumatica Fibromyalgia Major depressive disorder Anxiety disorder Dehydration DISCHARGE MEDICATIONS: See Medication Reconciliation list. DISCHARGE INSTRUCTIONS: Patient was discharged to the half-way facility. Follow up with medical doctor at the facility. Elzbieta López NP Jan 10, 2019 15:22
== END 2019-01-09 19:30 | DRG 551 ==
LOC: EDBD 11:06 → EMR 12:00 → 4E 17:56 → EDBEDREQ 18:57 → 4E 20:24
DX: M51.26 Other intervertebral disc displacement, lumbar region (principal); G92 Toxic encephalopathy; J44.9 Chronic obstructive pulmonary disease, unspecified; M48.061 Spinal stenosis, lumbar region without neurogenic claudication; I10 Essential (primary) hypertension; R29.6 Repeated falls; E11.9 Type 2 diabetes mellitus without complications; M35.3 Polymyalgia rheumatica; M79.7 Fibromyalgia; Z79.82 Long term (current) use of aspirin; Z79.4 Long term (current) use of insulin; Z87.891 Personal history of nicotine dependence; Z88.6 Allergy status to analgesic agent; M25.562 Pain in left knee; M25.561 Pain in right knee; Z86.73 Personal history of transient ischemic attack (TIA), and cerebral infarction without residual deficits; E66.01 Morbid (severe) obesity due to excess calories; F32.9 Major depressive disorder, single episode, unspecified; F41.9 Anxiety disorder, unspecified; Z88.2 Allergy status to sulfonamides; Z91.013 Allergy to seafood
CPT/HCPCS: 36415; 70450; 71045; 72020; 72158; 80048; 80053; 80061; 81003; 82550; 82962; 83880; 84443; 84484; 85025; 85610; 85730; 93005; 93970; 96374; 99285; A9585; J8499